=== PATIENT | female | born 1965 | race Caucasian/White ===

== ENCOUNTER 2021-10-22 18:28 | Inpatient (IN) | payer OTHER ==
[~2021-10-22] VITALS: Ht 167.1 cm; Wt 82.1 kg
[2021-10-22] MEDS ORDERED: HYDR50TA70 PO ×2 (18:37→21:36)
[2021-10-22] MEDS ORDERED: ATEN25TA PO (18:37)
[2021-10-22] MEDS ORDERED: VENL150C43 PO (18:37)
[2021-10-22] MEDS ORDERED: PANT40TA29 PO (18:37)
[2021-10-22] MEDS ORDERED: GABA-1171 PO (18:37)
[2021-10-22] MEDS ORDERED: PRAV40TA2 PO (18:37)
--- OUTSIDE RECORDS SUMMARY | 2021-10-22 19:48 | CCD | Continuity of Care Document ---
Author Author Torie MONTERROSO [facility] Unknown Address [address] [place] [address] Phone [phone] Care Team Providers Care Fermenting Cellar Dropper Name Role Phone Alyssa Madden PA-C AUTM [phone] Problems Active Problems Provider Date Gastroesophageal reflux disease Alyssa Madden PA-C Onset: 0 12/13/2020 Essential hypertension Alyssa Madden PA-C Onset: 12/13/2020 Anxiety state Alyssa Madden PA-C Onset: 12/13/2020 Social History Type Date Description Comments Sex Unknown ETOH Use Denies alcohol use Tobacco Use Start: Unknown Heavy tobacco smoker (more than 10 cigarettes/day) Recreational Drug Use Denies Drug Use Allergies and adverse reactions Active Allergies Criticality Reaction | Severity Comments Date Tetracycline Unable to assess criticality vomitting 12/13/2020 Medications Active Medications SIG Qnty Indications Ordering Provide r Date Hydroxyzine HCL 50mg Tablets 1-2 tabs by mouth as needed for anxiety up to every 6 hours 90tabs Roney Fierro MD 12/13/2020 Effexor XR 150mg Caps ER 24HR 1 by mouth every day 90caps Roney Fierro MD Pravastatin Sodium 40mg Tablets 1 tab by mouth every day 90tabs Roney Fierro MD Atenolol 25mg Tablets 1 tab by mouth twice a day 60tabs Roney Fierro MD Pantoprazole Sodium 40mg Tablets D R 1 tab by mouth every day 90tabs Roney Fierro MD 0 Nicorette Starter Kit 4mg Gum Unknown Immunizations Description No Information Available Vital Signs Date Vital Result Comment 08/29/2021 11:03am BP Systolic 122 mmHg She has not h ad her meds yet today reminded to t BP Diastolic 68 mmHg She has not had her meds yet today reminded to t Heart Rate 86 /min Body Temperature 97.7 F Respiratory Rate 18 /min O2 % BldC Oximetry 97 % Weight 190.00 lb wgt loss noted Weight 86.184 kg Height 67 inches 5'7" BMI (Body Mass Index) 29.8 kg/m2 BSA (Body Surface Area) 1.98 m2 05/17/2021 2:35pm BP Systolic 136 mmHg BP Diastolic 84 mmHg Heart Rate 78 /min Body Temperature 96.0 F Respiratory Rate 16 /min O2 % BldC Oximetry 96 % Weight 204.38 lb Weight 92.704 kg Height 67 inches 5'7" BMI (Body Mass Index) 32.0 kg/m2 BSA (Body Surface Area) 2.04 m2 Results Test Acquired Date Facility Test Result H/L Range Note CBC W/Automated Diff 08/29/2021 [facility] CBC W/Automated Diff (SEE NOTE) 1, 2 WBC 14.5 10^3/uL High 4.2 - 11.0 RBC 4.82 10^6/uL 4.20 - 5.40 Hemoglobin 14.1 g/dL 12.0 - 16.0 Hematocrit 43.5 % 37.0 - 47.0 MCV 90.2 fL 81.0 - 101 MCH 29.3 pg 27.0 - 34.0 MCHC 32.4 g/dL 31.0 - 36.0 RDW 14.6 % High 11.5 - 14.5 Platelets 496 10^3/uL High 150 - 450 MPV 9.5 fL 7.4 - 10.4 Neut 68.0 % 37.0 - 80.0 Lymph 23.7 % Low 25.0 - 40.0 [place] 5.9 % 3.0 - 8.0 Eos 1.2 % 0.0 - 7.0 Baso 0.6 % 0.0 - 2.5 %Ig 0.6 % High 0.0 - 0.0 %NRBC 0.0 % 0.0 - 0.0 #Neut 9.85 10^3/uL High 2.00 - 6.90 #Lymph 3.43 10^3/uL High 0.60 - 3.40 #[place] 0.86 10^3/uL 0.00 - 0.90 #Eos 0.18 10^3/uL 0.00 - 0.70 #Baso 0.09 10^3/uL 0.00 - 0.20 #Ig 0.08 10^3/uL 0.00 - 0.10 #NRBC 0.00 10^3/uL 0.00 - 0.00 Manual Diff NOT INDICATED RBC Morph NOT INDICATED Comprehensive Metabolic Panel 08/29/2021 [facility] Comprehensive Metabo (SEE NOTE) 3 Sodium 139 mEq/L 134 - 153 Potassium 4.5 mEq/L 3.6 - 5.0 Chloride 105 mEq/L 98 - 107 Co2 22 mEq/L 22 - 30 Glucose 110 mg/dL High 70 - 99 BUN 19 mg/dL 7 - 21 Creatinine 0.6 mg/dL Low 0.7 - 1.5 BUN/Creat 32 High 8 - 27 Total Protein 7.6 g/dL 6.3 - 8.2 Albumin 4.5 g/dL 3.9 - 5.0 Globulin 3.1 GM/DL 2.4 - 3.2 A/G Ratio 1.5 0.8 - 2.0 Calcium 9.7 mg/dL 8.4 - 10.2 Total Bili <0.7 mg/dL 0.2 - 1.3 Alkaline Phos 281 U/L High 38 - 126 Sgot/Ast 13 U/L 5 - 40 SGPT/Alt 7 U/L 7 - 56 Anion Gap 12.0 mmol/L 8.0 - 16.0 Age 56 yrs Non-Aa GFR >60 mL/min Afr Amer GFR >60 mL/min 4 Laboratory test finding 08/29/2021 [facility] Hgba1c 5.9 % 4.4 - 6.1 Cve Panel 08/29/2021 [facility] Cve Panel (SEE NOTE) 5 Cholesterol 180 mg/dL 131 - 200 Triglycerides 161 mg/dL High 35 - 160 HDL 36 mg/dL 29 - 86 LDL 108 mg/dL 65 - 175 Risk Factor 5.0 High 3.2 - 4.4 LDL/HDL 3.00 1.47 - 3.22 6 Laboratory test finding 08/29/2021 [facility] Vitamin D (25-Hydroxy) 9 NG/ML 7 Laboratory test finding 08/29/2021 [facility] TSH Highly Sensitive 2.53 uIU/mL 0.47 - 5.01 Sedimentation Rate 08/29/2021 [facility] Sed Rate 40 mm/hr High 0 - 30 Sed Rate Reenter 40 Laboratory test finding 08/29/2021 [facility] Sakshi Ifa Negative 8 Ra Quant <10 IU/mL 0 - 14 Cyclic Citrullinate Peptide Ig 6 units 0-19 9 CRP (High Sensitivity) 35.38 mg/L High 1.00 - 3.00 10 1 Is patient fasting? N 2 COMPLETE BLOOD COUNT 3 COMPREHENSIVE METABOLIC PANE L 4 Male GFR Interprentation 20-49 yrs >60 mL/min Normal 50-59 yrs >56 mL/min Normal 60-69 yrs >49 mL/min Normal 70-79yrs >42 mL/min Normal 80 and above >35 mL/min Normal Female GFR Interpretation 20-39 yrs >60 mL/min Normal 40-49 yrs >58 mL/min Normal 50-59 yrs >51 mL/min Normal 60-69 yrs >45 mL/min Normal 70-79 yrs >39 mL/min Normal 80 and above >32 mL/min Normal 5 LIPID PANEL 6 CVE RISK CHOL/HDL LDL/HDL MEN: 1/2 AVERAGE 3.43 1.00 AVERAGE 4.97 3.55 2X AVERAGE 9.55 6.25 3X AVERAGE 23.99 7.99 WOMEN: 1/2 AVERAGE 3.27 1.47 AVERAGE 4.44 3.22 2X AVERAGE 7.05 5.03 3X AVERAGE 11.04 6.14 7 VITAMIN-D(25HYDROXY) Deficiency: <=20 ng/ml Insufficiency: 21-29 ng/ml Preferred level: => 30 ng/ml 8 Negative <1:80 Borderline 1:80 Positive >1:80 ICAP nomenclature: AC-0 For more information about Hep-2 cell patterns use ANApatterns.org, the official website for the International Consensus on Antinuclear Antibody (SAKSHI) Patterns (ICAP). 9 Negative <20 Weak positive 20 - 39 Moderate positive 40 - 59 Strong positive >59 10 CDC/AHS HS-CRP CUT-OFF: RELATIVE RISK: <1.0 mg/L Low 1.0 - 3.0 mg/L A verage >3.0 mg/L High Optimally, the average of HS-CRP results repeated two weeks apart should be used for risk assessment. Procedures Date Code Description Status 08/29/2021 42926 Office/Outpatient Established Mo d MDM 30-39 Min Completed 05/17/2021 61062 Office/Outpatient Established Lo w MDM 20-29 Min Completed Medical Devices Description No Information Available Encounters Description No Information Available Assessments Date Code Description Provider 08/29/2021 M79.10 Myalgia, unspecified site ONEIL Rasmussen 08/29/2021 F17.210 Nicotine dependence, cigarettes, uncomplicated ONEIL Rasmussen 08/29/2021 K21.9 Gastro-esophageal reflux disease without esophagitis ONEIL Rasmussen 08/29/2021 R22.1 Localized swelling, mass and lum p, neck ONEIL Rasmussen 08/29/2021 R63.4 Abnormal weight loss ONEIL Grace 08/29/2021 R51.9 Headache, unspecified ONEIL Woodall 05/17/2021 I10 Essential (primary) hypertension Alyssa Madden PA-C 05/17/2021 F17.210 Nicotine dependence, cigarettes, uncomplicated Alyssa Madden PA-C 05/17/2021 F41.9 Anxiety disorder, unspecified El rashi Madden PA-C 05/17/2021 M79.18 Myalgia, other site Alyssa Madden PA-C 05/17/2021 Z00.01 Encounter for genera l adult medical examination with abnormal findings Alyssa Madden PA-C Plan of Treatment Future Appointment(s):* 09/19/2021 4:00 pm - [facility] Rasmussen at [facility] 12/13/2020 - Alyssa Madden PA-C* Z00.01 Encounter for general adult medical examination with abnormal findings* Comments:* Physical examination was done. Will order routine blood work and call her with results. Will have her sign records release to obtain medical records. Refilled her medications today. She is not interested in mammogram and pap smear. She had negative Cologuard last year. * F41.9 Anxiety disorder, unspecified* Comments:* Well controlled on Effexor. If she has any increased symptoms, she should let us know. * I10 Essential (primary) hypertension* Comments:* Today, BP is 124/84 at goal. Continue with current medication. Will continue to monitor. * K21.9 Gastro-esophageal reflux disease without esophagitis* Comments:* Continue with current medication. * E78.5 Hyperlipidemia, unspecified* Comments:* Continue with current medication. Will order lipid panel and adjust medication if needed. * G47.00 Insomnia, unspecified* Comments:* Will prescribe hydroxyzine for sleep as she had benefit in the past. * N39.3 Stress incontinence (female) (male)* Comments:* She was advised to see [facility] for further evaluation. Declined pelvic floor PT stating it is not bothersome currently. Declined urology referral. Declined trial of incontinence meds. * F17.210 Nicotine dependence, cigarettes, uncomplicated* Comments:* She is trying to quit smoking. Continue with Nicorette. She will let us know, if she needs any help. * M25.519 Pain in unspecified shoulder* Comments:* She c/o shoulder pain. it is not bothersome. Declined x-ray. She will let us know if she has increased pain. * All * New Medication:* Hydroxyzine HCL 50 mg - 1-2 tabs by mouth as needed for anxiety up to every 6 hours * Follow up:* 3-4 months Functional Status Description No Information Available Mental Status Description No Information Available Referrals Description No Information Available
--- OUTSIDE RECORDS SUMMARY | 2021-10-22 19:48 | CCD | Continuity of Care Document ---
Author Author Torie MONTERROSO PA Organization Unknown Address [address] [place] [address] Phone [phone] Care Team Providers Care On Site Coordinator Name Role Phone Polly Monterroso AUTM [phone] Problems Active Problems Provider Date Gastroesophageal reflux [...] Available Vital Signs Date Vital Result Comment 09/22/2021 4:04pm BP Systolic 130 mmHg BP Diastolic 82 mmHg Heart Rate 84 /min Body Temperature 96.0 F Respiratory Rate 16 /min O2 % BldC Oximetry 93 % Weight 188.50 lb Weight 85.504 kg Height 67 inches 5'7" BMI (Body Mass Index) 29.5 kg/m2 BSA (Body Surface Area) 1.97 m2 08/29/2021 11:03am BP Systolic 122 mmHg She [...] kg/m2 BSA (Body Surface Area) 1.98 m2 Results Test Acquired Date Facility Test Result H/L Range Note CBC W/Automated Diff 08/29/2021 [facility] CBC W/Automated Diff (SEE NOTE) 1, 2 [...] Lymph 23.7 % Low 25.0 - 40.0 Keith 5.9 % 3.0 - 8.0 Eos 1.2 % 0.0 - 7.0 Baso 0.6 % 0.0 - 2.5 %Ig 0.6 % High 0.0 - 0.0 %NRBC 0.0 % 0.0 - 0.0 #Neut 9.85 10^3/uL High 2.00 - 6.90 #Lymph 3.43 10^3/uL High 0.60 - 3.40 #Keith 0.86 10^3/uL 0.00 - 0.90 #Eos 0.18 10^3/uL 0.00 - 0.70 #Baso 0.09 10^3/uL 0.00 - 0.20 #Ig 0.08 10^3/uL 0.00 - 0.10 #NRBC 0.00 10^3/uL 0.00 - 0.00 Manual Diff NOT INDICATED RBC Morph NOT INDICATED Comprehensive Metabolic Panel 08/29/2021 [facility] Comprehensive Metabo (SEE NOTE) 3 Sodium [...] >60 mL/min 4 Laboratory test finding 08/29/2021 [facility] Hgba1c 5.9 % 4.4 - 6.1 Cve Panel 08/29/2021 [facility] Cve Panel (SEE NOTE) 5 Cholesterol 180 mg/dL 131 - 200 Triglycerides 161 mg/dL High 35 - 160 HDL 36 mg/dL 29 - 86 LDL 108 mg/dL 65 - 175 Risk Factor 5.0 High 3.2 - 4.4 LDL/HDL 3.00 1.47 - 3.22 6 Laboratory test finding 08/29/2021 [facility] Vitamin D (25-Hydroxy) 9 NG/ML 7 Laboratory test finding 08/29/2021 [facility] TSH Highly Sensitive 2.53 uIU/mL 0.47 - 5.01 Sedimentation Rate 08/29/2021 [facility] Sed Rate 40 mm/hr High 0 - 30 Sed Rate Reenter 40 Laboratory test finding 08/29/2021 [facility] Sakshi Ifa Negative 8 Ra Quant <10 [...] 40 - 59 Strong positive >59 10 CDC/S HS-CRP CUT-OFF: RELATIVE RISK: <1.0 mg/L Low 1.0 - 3.0 mg/L A verage >3.0 mg/L High Optimally, the average of HS-CRP results repeated two weeks apart should be used for risk assessment. Procedures Date Code Description Status 08/29/2021 24980 Office/Outpatient Established Mo d MDM 30-39 Min Completed 05/17/2021 05828 Office/Outpatient Established Lo w MDM 20-29 Min Completed Medical Devices Description No Information Available Encounters Description No Information Available Assessments Date Code Description Provider 09/22/2021 M25.511 Pain in right shoulder ONEIL Urena 09/22/2021 R63.4 Abnormal weight loss ONEIL Grace 09/22/2021 F17.210 Nicotine dependence, cigarettes, uncomplicated ONEIL Rasmussen 09/22/2021 I88.9 Nonspecific lymphadenitis, unspe cified ONEIL Rasmussen 08/29/2021 M79.10 Myalgia, unspecified site ONEIL Rasmussen [...] Madden PA-C Plan of Treatment Future Appointment(s):* 10/07/2021 3:00 pm - ONE[facility] Rasmussen at [facility] 09/22/2021 - ONEIL Rasmussen* M25.511 Pain in right shoulder* New Xrays:* Shoulder Comp-2 Or More VWS RT, Ordered: 09/22/21 * Recommendations:* We will obtain x-ray. Advised to use Tylenol or ibuprofen for pain. Use heating pads. Use light movement with shoulder daily. Advised to go to ER for severe pain. * R63.4 Abnormal weight loss* New Xrays:* Chest Xray 2 Views, Ordered: 09/22/21 * Recommendations:* Patient did not get her imaging completed during her last appointment. She should have imaging completed as this could likely due to cancer. Encourage imaging to be completed in 2 weeks. If imaging was not completed, we will fill out AMA form and likely no longer my patient. * F17.210 Nicotine dependence, cigarettes, uncomplicated* New Xrays:* Chest Xray 2 Views, Ordered: 09/22/21 * I88.9 Nonspecific lymphadenitis, unspecified Functional Status Description No Information Available Mental Status Description No Information Available Referrals Description No Information Available
--- OUTSIDE RECORDS SUMMARY | 2021-10-22 19:48 | CCD | Continuity of Care Document ---
Author Author Torie MONTERROSO PA Organization Unknown Address [address] [place] [address] Phone [phone] Care Team Providers Care Weld Fitter Name Role Phone Polly Monterroso AUTM [phone] Problems Active Problems Provider Date Gastroesophageal reflux [...] H/L Range Note CBC W/Automated Diff 08/29/2021 [facility] CBC W/Automated Diff (SEE NOTE) 1, 2 [...] Lymph 23.7 % Low 25.0 - 40.0 Rabun 5.9 % 3.0 - 8.0 Eos 1.2 % 0.0 - 7.0 Baso 0.6 % 0.0 - 2.5 %Ig 0.6 % High 0.0 - 0.0 %NRBC 0.0 % 0.0 - 0.0 #Neut 9.85 10^3/uL High 2.00 - 6.90 #Lymph 3.43 10^3/uL High 0.60 - 3.40 #[place]abun 0.86 10^3/uL 0.00 - 0.90 #Eos 0.18 10^3/uL 0.00 - 0.70 #Baso 0.09 10^3/uL 0.00 - 0.20 #Ig 0.08 10^3/uL 0.00 - 0.10 #NRBC 0.00 10^3/uL 0.00 - 0.00 Manual Diff NOT INDICATED RBC Morph NOT INDICATED Comprehensive Metabolic Panel 08/29/2021 [facility] Comprehensive Metabo (SEE NOTE) 3 Sodium 139 [...] >60 mL/min 4 Laboratory test finding 08/29/2021 [facility] Hgba1c 5.9 % 4.4 - 6.1 Cve Panel 08/29/2021 [facility] Cve Panel (SEE NOTE) 5 Cholesterol 180 mg/dL 131 - 200 Triglycerides 161 mg/dL High 35 - 160 HDL 36 mg/dL 29 - 86 LDL 108 mg/dL 65 - 175 Risk Factor 5.0 High 3.2 - 4.4 LDL/HDL 3.00 1.47 - 3.22 6 Laboratory test finding 08/29/2021 [facility] Vitamin D (25-Hydroxy) 9 NG/ML 7 Laboratory test finding 08/29/2021 [facility] TSH Highly Sensitive 2.53 uIU/mL 0.47 - 5.01 Sedimentation Rate 08/29/2021 [facility] Sed Rate 40 mm/hr High 0 - 30 Sed Rate Reenter 40 Laboratory test finding 08/29/2021 [facility] Sakshi Ifa Negative 8 Ra Quant <10 [...] assessment. Procedures Date Code Description Status 08/29/2021 27623 Office/Outpatient Established Mo d MDM 30-39 Min Completed 05/17/2021 28315 Office/Outpatient Established Lo w MDM 20-29 Min Completed Medical Devices Description No Information Available Encounters Description No Information Available Assessments Date Code Description Provider 09/22/2021 M25.511 Pain in right shoulder ONEIL Urena 09/22/2021 R63.4 Abnormal weight loss ONEIL Grace 09/22/2021 I88.9 Nonspecific lymphadenitis, unspe cified ONEIL [...] 10/07/2021 3:00 pm - ONEIL Rasmussen at [facility] 09/22/2021 - ONEIL Rasmussen* M25.511 Pain in right shoulder* New Xrays:* Shoulder Comp-2 Or More VWS RT, Ordered: 09/22/21 * Recommendations:* We will obtain x-ray. Advised to use Tylenol or ibuprofen for pain. Use heating pads. Do light movement with shoulder daily. Advised to go to ER for severe pain. Will consider referral to orthopedics at next appointment. * R63.4 Abnormal weight loss* New Xrays:* Chest Xray 2 Views, Ordered: 09/22/21 * Recommendations:* Patient did not get her imaging completed that was ordered at her last appointment. Throughout exam she seems very lackadaisical and does not seem concern about swollen mass on neck or weight loss. The lymph node has appeared to have gotten bigger since last visit. Discussed that this is potentially cancerous and we need to have this imaging completed as soon as possible. I will have her return in 2 weeks. If imaging is not completed at this time, she will need to fill out AMA paperwork and I am may not be able to continue to see her if she is not willing to comply with diagnosis and treatment of her current conditions. * I88.9 Nonspecific lymphadenitis, unspecified* Recommendations:* see above. Functional Status Description No Information Available Mental Status Description No Information Available Referrals Description No Information Available
--- OUTSIDE RECORDS SUMMARY | 2021-10-22 19:48 | CCD | Continuity of Care Document ---
Author Toire [place] Organization Unknown Address [address] [place] [address] Phone [phone] Care Team Providers Care Mica Miner Blasting Name Role Phone Alyssa Madden PA-C AUTM [phone] Problems Active Problems Provider Date Gastroesophageal reflux disease Alyssa Madden PA-C Onset: 0 12/13/2020 Essential hypertension Alyssa Madden PA-C Onset: 12/13/2020 Anxiety state Alyssa Madden PA-C Onset: 12/13/2020 Social History Type Date Description Comments Sex Unknown ETOH Use Denies alcohol use Tobacco Use Start: Unknown Heavy tobacco smoker (more than 10 cigarettes/day) Recreational Drug Use Denies Drug Use Allergies, Adverse Reactions, Alerts Active Allergies Criticality Reaction | Severity Comments [...] Date Facility Test Result H/L Range Note Laboratory test finding 08/29/2021 [facility] Hgba1c <pending> Laboratory test finding 08/29/2021 [facility] Vitamin D (25-Hydroxy) <pending> Laboratory test finding 08/29/2021 [facility] TSH Highly Sensitive <pending> Sedimentation Rate <pending> C-Reactive Protein <pending> Sakshi Ifa <pending> Ra Quantitative <pending> Cyclic Citrullinate Peptide Ig <pending> Procedures Date Code Description Status 05/17/2021 06853 Office/Outpatient Established Lo w MDM 20-29 Min [...] Alyssa Madden PA-C 05/17/2021 Z00.01 Encounter for [facility] adult medical examination with abnormal findings Alyssa Madden PA-C Plan of Treatment Future Appointment(s):* 09/19/2021 4:00 pm - ONE[facility] Rasmussen at [facility] 08/29/2021 - ONEIL Rasmussen* M79.10 Myalgia, unspecified site* Recommendations:* This is still occurring and is worsening. Will order labs for further evaluation. She can continue to take motrin as needed for pain. * F17.210 Nicotine dependence, cigarettes, uncomplicated* New Xrays:* Low-dose CT scan (Chest), Ordered: 08/29/21 * Recommendations:* Due to patients current smoking history I had an extensive discussion lasting more than 5 minutes about the need to quit smoking. I counseled the patient of the various negative side effects of smoking including, but not limited to, the risk of developing COPD, lung cancer, and other cardiac diseases. I strongly recommended that patient stops smoking and the patient was given information about various options of smoking cessation tools such as nicotine replacement therapy and other pharmacotherapies. She is going to use nicotine gum in order to quit. She is going to pick a quit date. I will have her return in 1 month for follow up. * K21.9 Gastro-esophageal reflux disease without esophagitis* Recommendations:* This is well controlled. Please continue current regimen. * R22.1 Localized swelling, mass and lump, neck* New Xrays:* US Soft Tissue Head/Neck, Ordered: 08/29/21 * Recommendations:* Will order head and neck ultrasound for further evaluation. * R63.4 Abnormal weight loss* Recommendations:* This is possibly secondary to lifestyle changes. She is a current smoker, I will order CT chest for further evaluation. We will continue to monitor. * R51.9 Headache, unspecified* Recommendations:* Headache of unknown etiology. Patient was non-specific in headache pattern. I will have her continue to track headaches and bring a headache diary in 3 weeks. She has been instructed to see an eye doctor as she has not in over 4 years. Migraine vs cluster vs other Functional Status Description No Information Available Mental Status Description No Information Available Referrals Description No Information Available
--- OUTSIDE RECORDS SUMMARY | 2021-10-22 19:48 | CCD | Continuity of Care Document ---
Author Author Torie MONTERROSO PA Organization Unknown Address [address] [place] [address] Phone [phone] Care Team Providers Care Partner Alliance Manager Name Role Phone Polly Monterroso AUTM [phone] [facility] AUTM Problems Active Problems Provider Date Gastroesophageal reflux [...] Available Vital Signs Date Vital Result Comment 10/07/2021 3:02pm BP Systolic 126 mmHg BP Diastolic 78 mmHg Heart Rate 85 /min Body Temperature 96.0 F Respiratory Rate 16 /min O2 % BldC Oximetry 98 % Weight 185.00 lb Weight 83.916 kg 09/22/2021 4:04pm BP Systolic 130 mmHg BP Diastolic 82 mmHg Heart Rate 84 /min Body Temperature 96.0 F Respiratory Rate 16 /min O2 % BldC Oximetry 93 % Weight 188.50 lb Weight 85.504 kg Height 67 inches 5'7" BMI (Body Mass Index) 29.5 kg/m2 BSA (Body Surface Area) 1.97 m2 Results Test Acquired Date Facility Test Result H/L Range Note CBC W/Automated Diff 08/29/2021 [facility] CBC W/Automated Diff (SEE NOTE) 1, 2 [...] Lymph 23.7 % Low 25.0 - 40.0 [place] 5.9 % 3.0 - 8.0 Eos 1.2 % 0.0 - 7.0 Baso 0.6 % 0.0 - 2.5 %Ig 0.6 % High 0.0 - 0.0 %NRBC 0.0 % 0.0 - 0.0 #Neut 9.85 10^3/uL High 2.00 - 6.90 #Lymph 3.43 10^3/uL High 0.60 - 3.40 #[place] 0.86 10^3/uL 0.00 - 0.90 #Eos 0.18 10^3/uL 0.00 - 0.70 #Baso 0.09 10^3/uL 0.00 - 0.20 #Ig 0.08 10^3/uL 0.00 - 0.10 #NRBC 0.00 10^3/uL 0.00 - 0.00 Manual Diff NOT INDICATED RBC Morph NOT INDICATED Comprehensive Metabolic Panel 08/29/2021 [facility] Comprehensive Metabo (SEE NOTE) 3 Sodium 139 [...] >60 mL/min 4 Laboratory test finding 08/29/2021 [facility] Hgba1c 5.9 % 4.4 - 6.1 Cve Panel 08/29/2021 [facility] Cve Panel (SEE NOTE) 5 Cholesterol 180 mg/dL 131 - 200 Triglycerides 161 mg/dL High 35 - 160 HDL 36 mg/dL 29 - 86 LDL 108 mg/dL 65 - 175 Risk Factor 5.0 High 3.2 - 4.4 LDL/HDL 3.00 1.47 - 3.22 6 Laboratory test finding 08/29/2021 [facility] Vitamin D (25-Hydroxy) 9 NG/ML 7 Laboratory test finding 08/29/2021 [facility] TSH Highly Sensitive 2.53 uIU/mL 0.47 - 5.01 Sedimentation Rate 08/29/2021 [facility] Sed Rate 40 mm/hr High 0 - 30 Sed Rate Reenter 40 Laboratory test finding 08/29/2021 [facility] Sakshi Ifa Negative 8 Ra Quant <10 [...] risk assessment. Procedures Date Code Description Status 09/22/2021 74449 Office/Outpatient Established Mo d MDM 30-39 Min Completed 08/29/2021 60008 Office/Outpatient Established Mo d MDM 30-39 Min Completed 05/17/2021 26900 Office/Outpatient Established Lo w MDM 20-29 Min Completed Medical Devices Description No Information Available Encounters Description No Information Available Assessments Date Code Description Provider 09/22/2021 R63.4 Abnormal weight loss ONEIL Grace 09/22/2021 I88.9 Nonspecific lymphadenitis, unspe cified [facility] Rasmussen 09/22/2021 M25.511 Pain in right shoulder ONEIL Urena 08/29/2021 M79.10 Myalgia, unspecified site ONEIL Rasmussen [...] findings Alyssa Madden PA-C Plan of Treatment No Information Available Functional Status Description No Information Available Mental Status Description No Information Available Referrals Refer to Reason for Referral Status Appt Date [facility] 56 year old female with abnormal weight loss and abnormal lymph node. CT scan of abdomen showed multiple liver lesions and bone lesions. I am awaiting PET scan. Please evaluate and manage. Thank you. Sent [address] [place] [address] [phone]
--- OUTSIDE RECORDS SUMMARY | 2021-10-22 19:48 | CCD ---
Continuity of Care Document (CCD) Created on: 09/22/2021 Torie Muñoz External Reference #: [id number] : [id number] Sex: Female Author Author Torie MONTERROSO PA Organization Unknown Address [address] [place] [address] Phone [phone] Care Team Providers Care Software Engineer Developer Name Role Phone Polly Monterroso AUTM [phone] Problems Active Problems Provider Date Gastroesophageal reflux [...] H/L Range Note CBC W/Automated Diff 08/29/2021 [facility] CBC W/Automated Diff (SEE NOTE) 1, [...] Lymph 23.7 % Low 25.0 - 40.0 [place] 5.9 % 3.0 - 8.0 Eos 1.2 % 0.0 - 7.0 Baso 0.6 % 0.0 - 2.5 %Ig 0.6 % High 0.0 - 0.0 %NRBC 0.0 % 0.0 - 0.0 #Neut 9.85 10^3/uL High 2.00 - 6.90 #Lymph 3.43 10^3/uL High 0.60 - 3.40 #[place] 0.86 10^3/uL 0.00 - 0.90 #Eos 0.18 10^3/uL 0.00 - 0.70 #Baso 0.09 10^3/uL 0.00 - 0.20 #Ig 0.08 10^3/uL 0.00 - 0.10 #NRBC 0.00 10^3/uL 0.00 - 0.00 Manual Diff NOT INDICATED RBC Morph NOT INDICATED Comprehensive Metabolic Panel 08/29/2021 [facility] Comprehensive Metabo (SEE NOTE) 3 Sodium 139 [...] >60 mL/min 4 Laboratory test finding 08/29/2021 [facility] Hgba1c 5.9 % 4.4 - 6.1 Cve Panel 08/29/2021 [facility] Cve Panel (SEE NOTE) 5 Cholesterol 180 mg/dL 131 - 200 Triglycerides 161 mg/dL High 35 - 160 HDL 36 mg/dL 29 - 86 LDL 108 mg/dL 65 - 175 Risk Factor 5.0 High 3.2 - 4.4 LDL/HDL 3.00 1.47 - 3.22 6 Laboratory test finding 08/29/2021 [facility] Vitamin D (25-Hydroxy) 9 NG/ML 7 Laboratory test finding 08/29/2021 [facility] TSH Highly Sensitive 2.53 uIU/mL 0.47 - 5.01 Sedimentation Rate 08/29/2021 [facility] Sed Rate 40 mm/hr High 0 - 30 Sed Rate Reenter 40 Laboratory test finding 08/29/2021 [facility] Sakshi Ifa Negative 8 Ra Quant [...] assessment. Procedures Date Code Description Status 08/29/2021 51748 Office/Outpatient Established Mo d MDM 30-39 Min Completed 05/17/2021 55800 Office/Outpatient Established Lo w MDM 20-29 Min [...] PA-C 05/17/2021 F41.9 Anxiety disorder, unspecified El rahsi Madden PA-C 05/17/2021 M79.18 Myalgia, other site Alyssa Madden PA-C 05/17/2021 Z00.01 Encounter for genera l adult medical examination with abnormal findings Alyssa Madden PA-C Plan of Treatment Future Appointment(s):* 10/07/2021 3:00 pm - [facility] Rasmussen at [facility] 09/22/2021 - [facility] Rasmussen* M25.511 Pain in [...]
--- OUTSIDE RECORDS SUMMARY | 2021-10-22 19:48 | CCD | Continuity of Care Document ---
Author Torie Pike [place] Organization Unknown Address [address] [place] [address] Phone [phone] Care Team Providers Care Insole And Outsole Splitter Name Role Phone Alyssa Madden PA-C AUTM [phone] Problems Active Problems Provider Date Gastroesophageal reflux [...] H/L Range Note Laboratory test finding 08/29/2021 [facility] Hgba1c <pending> Laboratory test finding 08/29/2021 [facility] Vitamin D (25-Hydroxy) <pending> Laboratory test finding 08/29/2021 [facility] TSH Highly Sensitive <pending> Sedimentation Rate <pending> C-Reactive Protein <pending> Sakshi Ifa <pending> Ra Quantitative <pending> Cyclic Citrullinate Peptide Ig <pending> Procedures Date Code Description Status 05/17/2021 76201 Office/Outpatient Established Lo w MDM 20-29 Min [...] Alyssa Madden PA-C 05/17/2021 Z00.01 Encounter for [facility] adult medical examination with abnormal findings Alyssa Madden PA-C Plan of Treatment Future Appointment(s):* 09/19/2021 4:00 pm - [facility] Rasmussen at [facility] 08/29/2021 - [facility] Rasmussen* M79.10 Myalgia, unspecified [...]
--- OUTSIDE RECORDS SUMMARY | 2021-10-22 19:48 | CCD | Continuity of Care Document ---
Author Torie Pike [place] Organization Unknown Address [address] [place] [address] Phone [phone] Care Team Providers Care Manager Plumbing Name Role Phone Alyssa Madden PA-C AUTM [phone] Problems Active Problems Provider Date Gastroesophageal reflux [...] 1 tab by mouth every day 90tabs Roeny Fierro MD 0 Nicorette Starter Kit 4mg [...] H/L Range Note Laboratory test finding 08/29/2021 [facility] Hgba1c <pending> Laboratory test finding 08/29/2021 [facility] Vitamin D (25-Hydroxy) <pending> Laboratory test finding 08/29/2021 [facility] TSH Highly Sensitive <pending> Sedimentation Rate <pending> C-Reactive Protein <pending> Sakshi Ifa <pending> Ra Quantitative <pending> Cyclic Citrullinate Peptide Ig <pending> Procedures Date Code Description Status 05/17/2021 50687 Office/Outpatient Established Lo w MDM 20-29 Min [...] 09/19/2021 4:00 pm - [facility] Rasmussen at [facility] 08/29/2021 - [facility] Rasmussen* M79.10 Myalgia, unspecified [...]
--- OUTSIDE RECORDS SUMMARY | 2021-10-22 19:48 | CCD | Continuity of Care Document ---
Author Torie Pike [place] Organization Unknown Address [address] [place] [address] Phone [phone] Care Team Providers Care Experimental Rocketsled Mechanic Name Role Phone Alyssa Madden PA-C AUTM [phone] Problems Active Problems Provider Date Gastroesophageal reflux [...] H/L Range Note Laboratory test finding 08/29/2021 [facility] Hgba1c <pending> Laboratory test finding 08/29/2021 [facility] Vitamin D (25-Hydroxy) <pending> Laboratory test finding 08/29/2021 [facility] TSH Highly Sensitive <pending> Sedimentation Rate <pending> C-Reactive Protein <pending> Sakshi Ifa <pending> Ra Quantitative <pending> Cyclic Citrullinate Peptide Ig <pending> Procedures Date Code Description Status 05/17/2021 83642 Office/Outpatient Established Lo w MDM 20-29 Min [...] 05/17/2021 F17.210 Nicotine dependence, cigarettes, uncomplicated Alyssa Madedn PA-C 05/17/2021 F41.9 Anxiety disorder, unspecified El rashi Madden PA-C 05/17/2021 M79.18 Myalgia, other site Alyssa Madden PA-C 05/17/2021 Z00.01 Encounter for [facility] adult medical examination with abnormal findings Alyssa Madden PA-C Plan of Treatment Future Appointment(s):* 09/19/2021 4:00 pm - [facility] Rasmussen at [facility] 08/29/2021 - [facility] Rasmussen* M79.10 Myalgia, [...]
--- OUTSIDE RECORDS SUMMARY | 2021-10-22 19:48 | CCD | Continuity of Care Document ---
Author Author Torie MONTERROSO PA Organization Unknown Address [address] [place] [address] Phone [phone] Care Team Providers Care Hedis Manager Name Role Phone Polly Monterroso AUTM [phone] Problems Active Problems Provider Date Gastroesophageal reflux [...] H/L Range Note CBC W/Automated Diff 08/29/2021 [facility] CBC W/Automated Diff (SEE NOTE) 1, 2 [...] Lymph 23.7 % Low 25.0 - 40.0 [place] 5.9 % 3.0 - 8.0 Eos 1.2 % 0.0 - 7.0 Baso 0.6 % 0.0 - 2.5 %Ig 0.6 % High 0.0 - 0.0 %NRBC 0.0 % 0.0 - 0.0 #Neut 9.85 10^3/uL High 2.00 - 6.90 #Lymph 3.43 10^3/uL High 0.60 - 3.40 #[place] 0.86 10^3/uL 0.00 - 0.90 #Eos 0.18 10^3/uL 0.00 - 0.70 #Baso 0.09 10^3/uL 0.00 - 0.20 #Ig 0.08 10^3/uL 0.00 - 0.10 #NRBC 0.00 10^3/uL 0.00 - 0.00 Manual Diff NOT INDICATED RBC Morph NOT INDICATED Comprehensive Metabolic Panel 08/29/[address] [facility] Comprehensive Metabo (SEE NOTE) 3 Sodium [...] >60 mL/min 4 Laboratory test finding 08/29/2021 [facility] Hgba1c 5.9 % 4.4 - 6.1 Cve Panel 08/29/2021 [facility] Cve Panel (SEE NOTE) 5 Cholesterol 180 mg/dL 131 - 200 Triglycerides 161 mg/dL High 35 - 160 HDL 36 mg/dL 29 - 86 LDL 108 mg/dL 65 - 175 Risk Factor 5.0 High 3.2 - 4.4 LDL/HDL 3.00 1.47 - 3.22 6 Laboratory test finding 08/29/2021 [facility] Vitamin D (25-Hydroxy) 9 NG/ML 7 Laboratory test finding 08/29/2021 [facility] TSH Highly Sensitive 2.53 uIU/mL 0.47 - 5.01 Sedimentation Rate 08/29/2021 [facility] Sed Rate 40 mm/hr High 0 - 30 Sed Rate Reenter 40 Laboratory test finding 08/29/2021 [facility] Sakshi Ifa Negative 8 Ra Quant [...] assessment. Procedures Date Code Description Status 08/29/2021 49624 Office/Outpatient Established Mo d MDM 30-39 Min Completed 05/17/2021 60236 Office/Outpatient Established Lo w MDM 20-29 Min [...] 10/07/2021 3:00 pm - [facility] Rasmussen at [facility] 09/22/2021 - [facility] Rasmussen* M25.511 Pain in [...]
--- OUTSIDE RECORDS SUMMARY | 2021-10-22 19:49 | CCD ---
Author Author [facility] Organization [facility] Address Unknown Phone Unavailable Care Team Providers Care Wireless Architect Name Role Phone ZhangPolly PA Unavailable Unavailable Zhang, Polly PA Unavailable Unavailable Zhang, Polly PA Unavailable Unavailable Zhang, Polly PA Unavailable Unavailable Zhang, Polly PA Unavailable Unavailable Zhang, Polly PA Unavailable Unavailable Zhang, Polly PA Unavailable Unavailable Zhang, Polly PA Unavailable Unavailable Zhang, Polly PA Unavailable Unavailable Zhang, Polly PA Unavailable Unavailable Madden, M Alyssa PA-C Unavailable Unavailable Madden, M Alyssa PA-C Unavailable Unavailable Madden, M Alyssa PA-C Unavailable Unavailable Madden, M Alyssa PA-C Unavailable Unavailable Madden, M Alyssa PA-C Unavailable Unavailable Madden, M Alyssa PA-C Unavailable Unavailable Madden, M Alyssa PA-C Unavailable Unavailable Madden, M Alyssa PA-C Unavailable Unavailable Madden, M Alyssa PA-C Unavailable Unavailable Madden, M Alyssa PA-C Unavailable Unavailable Madden, M Alyssa PA-C Unavailable Unavailable Madden, M Alyssa PA-C Unavailable Unavailable Madden, M Alyssa PA-C Unavailable Unavailable Madden, M Alyssa PA-C Unavailable Unavailable Madden, M Alyssa PA-C Unavailable Unavailable Madden, M Alyssa PA-C Unavailable Unavailable Madden, M Alyssa PA-C Unavailable Unavailable Madden, M Alyssa PA-C Unavailable Unavailable Madden, M Alyssa PA-C Unavailable Unavailable Madden, M Alyssa PA-C Unavailable Unavailable Madden, M Alyssa PA-C Unavailable Unavailable Madden, M Alyssa PA-C Unavailable Unavailable Madden, M Alyssa PA-C Unavailable Unavailable Madden, M Alyssa PA-C Unavailable Unavailable Madden, M Alyssa PA-C Unavailable Unavailable Madden, M Alyssa PA-C Unavailable Unavailable Madden, M Alyssa PA-C Unavailable Unavailable Madden, M Alyssa PA-C Unavailable Unavailable Madden, M Alyssa PA-C Unavailable Unavailable Madden, M Alyssa PA-C Unavailable Unavailable Madden, M Alyssa PA-C Unavailable Unavailable Madden, M Alyssa PA-C Unavailable Unavailable Madden, M Alyssa PA-C Unavailable Unavailable Madden, M Alyssa PA-C Unavailable Unavailable Madden, M Alyssa PA-C Unavailable Unavailable Madden, M Alyssa PA-C Unavailable Unavailable Madden, M Alyssa PA-C Unavailable Unavailable Madden, M Alyssa PA-C Unavailable Unavailable DJOUINI, NATHEN PA-C Unavailable Unavailable DJOUINI, NATHEN PA-C Unavailable Unavailable DJOUINI, NATHEN PA-C Unavailable Unavailable DJOUINI, NATHEN PA-C Unavailable Unavailable DJOUINI, NATHEN PA-C Unavailable Unavailable DJOUINI, NATHEN PA-C Unavailable Unavailable Kunnumpurath, F Barbara MD Unavailable Unavailable Kunnumpurath, F Barbara MD Unavailable Unavailable Kunnumpurath, F Barbara MD Unavailable Unavailable Kunnumpurath, F Barbara MD Unavailable Unavailable Kunnumpurath, F Barbara MD Unavailable Unavailable Kunnumpurath, F Barbara MD Unavailable Unavailable Kunnumpurath, F Barbara MD Unavailable Unavailable Kunnumpurath, F Barbara MD Unavailable Unavailable Kunnumpurath, F Barbara MD Unavailable Unavailable Kunnumpurath, F Barbara MD Unavailable Unavailable Kunnumpurath, F Barbara MD Unavailable Unavailable Kunnumpurath, F Barbara MD Unavailable Unavailable Kunnumpurath, F Barbara MD Unavailable Unavailable Kunnumpurath, F Barbara MD Unavailable Unavailable Kunnumpurath, F Barbara MD Unavailable Unavailable Kunnumpurath, F Barbara MD Unavailable Unavailable Kunnumpurath, F Barbara MD Unavailable Unavailable Kunnumpurath, F Barbara MD Unavailable Unavailable Kunnumpurath, F Barbara MD Unavailable Unavailable Kunnumpurath, F Barbara MD Unavailable Unavailable Kunnumpurath, F Barbara MD Unavailable Unavailable Kunnumpurath, F Barbara MD Unavailable Unavailable Kunnumpurath, F Barbara MD Unavailable Unavailable Kunnumpurath, F Barbara MD Unavailable Unavailable Kunnumpurath, F Barbara MD Unavailable Unavailable Kunnumpurath, F Barbara MD Unavailable Unavailable Kunnumpurath, F Barbara MD Unavailable Unavailable Kunnumpurath, F Barbara MD Unavailable Unavailable Kunnumpurath, F Barbara MD Unavailable Unavailable Kunnumpurath, F Barbara MD Unavailable Unavailable Kunnumpurath, F Barbara MD Unavailable Unavailable Kunnumpurath, F Barbara MD Unavailable Unavailable Kunnumpurath, F Barbara MD Unavailable Unavailable Kunnumpurath, F Barbara MD Unavailable Unavailable Kunnumpurath, F Barbara MD Unavailable Unavailable Kunnumpurath, F Barbara MD Unavailable Unavailable Kunnumpurath, F Barbara MD Unavailable Unavailable Kunnumpurath, F Barbara MD Unavailable Unavailable Kunnumpurath, F Barbara MD Unavailable Unavailable Kunnumpurath, F Barbara MD Unavailable Unavailable Kunnumpurath, F Barbara MD Unavailable Unavailable Kunnumpurath, F Barbara MD Unavailable Unavailable Kunnumpurath, F Barbara MD Unavailable Unavailable Kunnumpurath, F Barbara MD Unavailable Unavailable Kunnumpurath, F Barbara MD Unavailable Unavailable Kunnumpurath, F Barbara MD Unavailable Unavailable PARTH VICTORIA MD Unavailable Unavailable PARTH VICTORIA MD Unavailable Unavailable PARTH VICTORIA MD Unavailable Unavailable PARTH VICTORIA MD Unavailable Unavailable PARTH VICTORIA MD Unavailable Unavailable PARTH VICTORIA MD Unavailable Unavailable PARTH VICTORIA MD Unavailable Unavailable PARTH VICTORIA MD Unavailable Unavailable PARTH VICTORIA MD Unavailable Unavailable PARTH VICTORIA MD Unavailable Unavailable PARTH VICTORIA MD Unavailable Unavailable PARTH VICTORIA MD Unavailable Unavailable PARTH VICTORIA MD Unavailable Unavailable PARTH VICTORIA MD Unavailable Unavailable PARTH VICTORIA MD Unavailable Unavailable PARTH VICTORIA MD Unavailable Unavailable PARTH VICTORIA MD Unavailable Unavailable PARTH VICTORIA MD Unavailable Unavailable PARTH VICTORIA MD Unavailable Unavailable PARTH VICTORIA MD Unavailable Unavailable PARTH VICTORIA MD Unavailable Unavailable PARTH VICTORIA MD Unavailable Unavailable PARTH VICTORIA MD Unavailable Unavailable PARTH VICTORIA MD Unavailable Unavailable PARTH VICTORIA MD Unavailable Unavailable PARTH VICTORIA MD Unavailable Unavailable PARTH VICTORIA MD Unavailable Unavailable PARTH VICTORIA MD Unavailable Unavailable PARTH VICTORIA MD Unavailable Unavailable PARTH VICTORIA MD Unavailable Unavailable PARTH VICTORIA MD Unavailable Unavailable PARTH VICTORIA MD Unavailable Unavailable PARTH VICTORIA MD Unavailable Unavailable PARTH VICTORIA MD Unavailable Unavailable PARTH VICTORIA MD Unavailable Unavailable PARTH VICTORIA MD Unavailable Unavailable PARTH VICTORIA MD Unavailable Unavailable PARTH VICTORIA MD Unavailable Unavailable PARTH VICTORIA MD Unavailable Unavailable PARTH VICTORIA MD Unavailable Unavailable PARTH VICTORIA MD Unavailable Unavailable PARTH VICTORIA MD Unavailable Unavailable PARTH VICTORIA MD Unavailable Unavailable PARTH VICTORIA MD Unavailable Unavailable PARTH VICTORIA MD Unavailable Unavailable PARTH VICTORIA MD Unavailable Unavailable PARTH VICTORIA MD Unavailable Unavailable PARTH VICTORIA MD Unavailable Unavailable PARTH VICTORIA MD Unavailable Unavailable PARTH VICTORIA MD Unavailable Unavailable PARTH VICTORIA MD Unavailable Unavailable HETAL, L BART MD Unavailable Unavailable HETAL, L BART MD Unavailable Unavailable HETAL, L BART MD Unavailable Unavailable HETAL, L BART MD Unavailable Unavailable HETAL, L BART MD Unavailable Unavailable HETAL, L BART MD Unavailable Unavailable HETAL, L BART MD Unavailable Unavailable HETAL, L BART MD Unavailable Unavailable HETAL, L BART MD Unavailable Unavailable HETAL, L BART MD Unavailable Unavailable HETAL, L BART MD Unavailable Unavailable HETAL, L BART MD Unavailable Unavailable HETAL, L BART MD Unavailable Unavailable HETAL, L BART MD Unavailable Unavailable HETAL, L BART MD Unavailable Unavailable HETAL, L BART MD Unavailable Unavailable HETAL, L BART MD Unavailable Unavailable HETAL, L BART MD Unavailable Unavailable HETAL, L BART MD Unavailable Unavailable HETAL, L BART MD Unavailable Unavailable DJOUINI, NATHEN PA-C Unavailable Unavailable DJOUINI, NATHEN PA-C Unavailable Unavailable DJOUINI, NATHEN PA-C Unavailable Unavailable DJOUINI, NATHEN PA-C Unavailable Unavailable DJOUINI, NATHEN PA-C Unavailable Unavailable DJOUINI, NATHEN PA-C Unavailable Unavailable DJOUINI, NATHEN PA-C Unavailable Unavailable Re-disclosure Warning The records that you are about to access may contain information from federally-assisted alcohol or drug abuse programs. If such information is present, then the following federally mandated warning applies: This information has been disclosed to you from records protected by federal confidentiality rules (42 CFR part 2). The federal rules prohibit you from making any further disclosure of this information unless further disclosure is expressly permitted by the written consent of the person to whom it pertains or as otherwise permitted by 42 CFR part 2. A general authorization for the release of medical or other information is NOT sufficient for this purpose. The Federal rules restrict any use of the information to criminally investigate or prosecute any alcohol or drug abuse patient.The records that you are about to access may contain highly sensitive health information, the redisclosure of which is protected by Article 27-F of the [facility] Public Health law. If you continue you may have access to information: Regarding HIV / AIDS; Provided by facilities licensed or operated by the [facility] Office of Mental Health; or Provided by the [facility] Office for People With Developmental Disabilities. If such information is present, then the following [facility] mandated warning applies: This information has been disclosed to you from confidential records which are protected by state law. State law prohibits you from making any further disclosure of this information without the specific written consent of the person to whom it pertains, or as otherwise permitted by law. Any unauthorized further disclosure in violation of state law may result in a fine or correction sentence or both. A general authorization for the release of medical or other information is NOT sufficient authorization for further disc losure. Allergies and Adverse Reactions Type Description Substance Reaction Status Data Source(s ) No Known Drug Allergies No Known Drug Allergies [facility] Food allergy [facility] DRUGS [facility] Encounters Encounter Providers Location Date Indications Data Source(s ) Outpatient Attender: NATHEN ABURTO CAttender: Polly Zhang PAConsultant: Barbara Maria MD 10/22/2021 01:38:00 PM EST - 10/22/2021 01:38:00 PM EST [facility] Outpatient Attender: NATHEN MAYES PA-C Family Practice 12:30:00 PM EST [facility] ([facility] Outpatient Attender: Polly Zhang PAConsultant: Barbara combs MD 10/07/2021 02:57:00 PM EST - 10/07/2021 02:57:00 PM EST [facility] Outpatient Attender: Polly Zhang PAConsultant: Barbara combs MD 10/05/2021 12:35:00 PM EST - 10/05/2021 01:36:00 PM [facility] Patient discharged. Outpatient Attender: Polly Zhang PAConsultant: Brabara combs MD 09/22/2021 03:57:00 PM EDT - 09/22/2021 03:57:00 PM EDT [facility] Outpatient Attender: Polly Zhang PAConsultant: Barbara combs MD 09/22/2021 01:40:33 PM EDT - 09/26/2021 10:57:00 AM [facility] Patient discharged. Outpatient Attender: Polly Zhang PAConsultant: Barbara combs MD 09/20/2021 08:14:55 AM EDT - 09/21/2021 01:39:00 PM EDT [facility] Patient discharged. Outpatient Attender: Alyssa PORTILLO ttender: Polly Zhang PAReferrer: Polly Zhang PAConsultant: Barbara Maria MD 09/2021 10:54:00 AM EDT - 08/29/2021 10:54:00 AM EDT [facility] Emergency Attender: BART FONG MDConsultant: Barbara callejas MD 08/06/2021 06:12:00 PM EDT - 08/06/2021 07:07:00 PM EDT [facility] Patient discharged. Outpatient Attender: Alyssa ABURTOCConsultant: PARTH VICTORIA MD 05/17/2021 02:26:00 PM EDT - 05/17/2021 02:26:00 PM EDT [facility] Outpatient Attender: Alyssa KNIGHTonsultant: PARTH VICTORIA MD 02/10/2021 02:44:00 PM EDT - 02/10/2021 02:44:00 PM EDT [facility] Outpatient Attender: Alyssa ABURTOCConsultant: PARTH VICTORIA MD 12/13/2020 02:07:00 PM EST - 12/13/2020 02:07:00 PM EST [facility] Immunizations Vaccine Date Status Description Data Source(s) COVID-19 VACCINE Pfizer 02/16/2021 12:00:00 AM EDT completed [facility] Vaccine Series Complete: YESThis Data wa s Submitted to [facility]. COVID-19 VACCINE Pfizer 01/26/2021 12:00:00 AM EST completed [facility] Vaccine Series Complete: NOThis Data was Submitted to [facility]. Medications Medication Brand Name Start Date Product Form Dose Route Admi nistrative Instructions Pharmacy Instructions Status Indications Reaction Description Data Source(s) 60 ACTUAT Albuterol 0.09 MG/ACTUAT Metered Dose Inhaler Albu terol Sulfate HFA 10/22/2021 12:00:00 AM EST RESPIRATORY active [facility] ([facility]) Amoxicillin 500 MG / Clavulanate 125 MG Oral Tablet Am oxicillin/Clavulanate Potassium 10/22/2021 12:00:00 AM EST ORAL active [facility] ([facility]) pantoprazole 40 MG Delayed Release Oral Tablet PANTOPRAZOLE SODIUM 10/12/2021 12:00:00 AM EST tablet,delayed release (DR/EC) 30 T ROJAS ONE TABLET BY MOUTH EVERY DAY TAKE ONE TABLET BY MOUTH EVERY DAY SOLD: 10/12/2021 [facility] 150 mg 10/11/2021 12:00:00 AM EST capsule,extended releas e 24hr 30 TAKE ONE CAPSULE BY MOUTH EVERY DAY TAKE ONE CAPSULE BY MOUTH EVERY DAY SOLD: 10/12/2021 [facility] 50 mg 10/08/2021 12:00:00 AM EST tablet 90 TAKE ONE TO TWO TABLETS BY MOUTH EVERY 6 HOURS NEEDED FOR ANXIETY TAKE ONE TO TWO TABLETS BY MOUTH EVERY 6 HOURS NEEDED FOR ANXIETY SOLD: 10/12/2021 [facility] 100 mg 10/08/2021 12:00:00 AM EST capsule 90 TAKE ONE CAPSULE BY MOUTH THREE TIMES A DAY NEEDED MAXIMUM DAILY DOSE = 3 TAKE ONE CAPSULE BY MOUTH THREE TIMES A DAY NEEDED MAXIMUM DAILY DOSE = 3 SOLD: 10/12/2021 [facility] gabapentin 100 MG Oral Capsule Gabapentin 10/07/2021 12:00:00 AM EST ORAL active [facility] ([facility]) 25 mg 08/11/2021 12:00:00 AM EDT tablet 60 TAKE ONE TABLET BY MOUTH TWICE A DAY TAKE ONE TABLET BY MOUTH TWICE A DAY SOLD: 08/13/2021 [facility] 25 mg 08/11/2021 12:00:00 AM EDT tablet 60 TAKE ONE TABLET BY MOUTH TWICE A DAY TAKE ONE TABLET BY MOUTH TWICE A DAY SOLD: 09/12/2021 [facility] 25 mg 08/11/2021 12:00:00 AM EDT tablet 60 TAKE ONE TABLET BY MOUTH TWICE A DAY TAKE ONE TABLET BY MOUTH TWICE A DAY SOLD: 10/12/2021 [facility] 40 mg 07/11/2021 12:00:00 AM EDT tablet 30 TAKE ONE TABLET BY MOUTH EVERY DAY TAKE ONE TABLET BY MOUTH EVERY DAY SOLD: 09/12/2021 [facility] 40 mg 07/11/2021 12:00:00 AM EDT tablet 30 TAKE ONE TABLET BY MOUTH EVERY DAY TAKE ONE TABLET BY MOUTH EVERY DAY SOLD: 08/13/2021 [facility] 40 mg 07/11/2021 12:00:00 AM EDT tablet 30 TAKE ONE TABLET BY MOUTH EVERY DAY TAKE ONE TABLET BY MOUTH EVERY DAY SOLD: 10/12/2021 [facility] 40 mg 07/11/2021 12:00:00 AM EDT tablet 30 TAKE ONE TABLET BY MOUTH EVERY DAY TAKE ONE TABLET BY MOUTH EVERY DAY SOLD: 07/14/2021 [facility] 50 mg 05/19/2021 12:00:00 AM EDT tablet 90 TAKE 1-2 TABLETS BY MOUTH NEEDED FOR ANXIETY UP TO EVERY 6 HOURS TAKE 1-2 TABLETS BY MOUTH NEEDED FOR ANXIETY UP TO EVERY 6 HOURS SOLD: 06/13/2021 [facility] 50 mg 05/19/2021 12:00:00 AM EDT tablet 90 TAKE 1-2 TABLETS BY MOUTH NEEDED FOR ANXIETY UP TO EVERY 6 HOURS TAKE 1-2 TABLETS BY MOUTH NEEDED FOR ANXIETY UP TO EVERY 6 HOURS SOLD: 07/14/2021 [facility] 50 mg 05/19/2021 12:00:00 AM EDT tablet 90 TAKE 1-2 TABLETS BY MOUTH NEEDED FOR ANXIETY UP TO EVERY 6 HOURS TAKE 1-2 TABLETS BY MOUTH NEEDED FOR ANXIETY UP TO EVERY 6 HOURS SOLD: 05/20/2021 [facility] 25 mg 05/12/2021 12:00:00 AM EDT tablet 60 TAKE ONE TABLET BY MOUTH TWICE A DAY TAKE ONE TABLET BY MOUTH TWICE A DAY SOLD: 07/14/2021 [facility] 25 mg 05/12/2021 12:00:00 AM EDT tablet 60 TAKE ONE TABLET BY MOUTH TWICE A DAY TAKE ONE TABLET BY MOUTH TWICE A DAY SOLD: 05/14/2021 [facility] 25 mg 05/12/2021 12:00:00 AM EDT tablet 60 TAKE ONE TABLET BY MOUTH TWICE A DAY TAKE ONE TABLET BY MOUTH TWICE A DAY SOLD: 06/13/2021 [facility] pantoprazole 40 MG Delayed Release Oral Tablet PANTOPRAZOLE SODIUM 04/11/2021 12:00:00 AM EDT tablet,delayed release (DR/EC) 30 T ROJAS ONE TABLET BY MOUTH EVERY DAY TAKE ONE TABLET BY MOUTH EVERY DAY SOLD: 09/12/2021 [facility] pantoprazole 40 MG Delayed Release Oral Tablet PANTOPRAZOLE SODIUM 04/11/2021 12:00:00 AM EDT tablet,delayed release (DR/EC) 30 T ROJAS ONE TABLET BY MOUTH EVERY DAY TAKE ONE TABLET BY MOUTH EVERY DAY SOLD: 07/14/2021 [facility] pantoprazole 40 MG Delayed Release Oral Tablet PANTOPRAZOLE SODIUM 04/11/2021 12:00:00 AM EDT tablet,delayed release (DR/EC) 90 T ROJAS ONE TABLET BY MOUTH EVERY DAY TAKE ONE TABLET BY MOUTH EVERY DAY SOLD: 04/15/2021 [facility] pantoprazole 40 MG Delayed Release Oral Tablet PANTOPRAZOLE SODIUM 04/11/2021 12:00:00 AM EDT tablet,delayed release (DR/EC) 30 T ROJAS ONE TABLET BY MOUTH EVERY DAY TAKE ONE TABLET BY MOUTH EVERY DAY SOLD: 08/13/2021 [facility] 150 mg 02/08/2021 12:00:00 AM EDT capsule,extended releas e 24hr 30 TAKE ONE CAPSULE BY MOUTH EVERY DAY TAKE ONE CAPSULE BY MOUTH EVERY DAY SOLD: 07/14/2021 [facility] 150 mg 02/08/2021 12:00:00 AM EDT capsule,extended releas e 24hr 30 TAKE ONE CAPSULE BY MOUTH EVERY DAY TAKE ONE CAPSULE BY MOUTH EVERY DAY SOLD: 02/12/2021 [facility] Atenolol 25 MG Oral Tablet ATENOLOL 02/08/2021 12:00:00 AM EDT tablet 60 TAKE ONE TABLET BY MOUTH TWICE A DAY TAKE ONE TABLET BY MOUTH TWICE A DAY SOLD: 02/12/2021 [facility] 40 mg 02/08/2021 12:00:00 AM EDT tablet 30 TAKE ONE TABLET BY MOUTH EVERY DAY TAKE ONE TABLET BY MOUTH EVERY DAY SOLD: 02/12/2021 [facility] 40 mg 02/08/2021 12:00:00 AM EDT tablet 30 TAKE ONE TABLET BY MOUTH EVERY DAY TAKE ONE TABLET BY MOUTH EVERY DAY SOLD: 06/13/2021 [facility] 40 mg 02/08/2021 12:00:00 AM EDT tablet 30 TAKE ONE TABLET BY MOUTH EVERY DAY TAKE ONE TABLET BY MOUTH EVERY DAY SOLD: 04/15/2021 [facility] 150 mg 02/08/2021 12:00:00 AM EDT capsule,extended releas e 24hr 30 TAKE ONE CAPSULE BY MOUTH EVERY DAY TAKE ONE CAPSULE BY MOUTH EVERY DAY SOLD: 09/12/2021 [facility] 25 mg 02/08/2021 12:00:00 AM EDT tablet 60 TAKE ONE TABLET BY MOUTH TWICE A DAY TAKE ONE TABLET BY MOUTH TWICE A DAY SOLD: 04/15/2021 [facility] 150 mg 02/08/2021 12:00:00 AM EDT capsule,extended releas e 24hr 30 TAKE ONE CAPSULE BY MOUTH EVERY DAY TAKE ONE CAPSULE BY MOUTH EVERY DAY SOLD: 06/13/2021 [facility] 150 mg 02/08/2021 12:00:00 AM EDT capsule,extended releas e 24hr 30 TAKE ONE CAPSULE BY MOUTH EVERY DAY TAKE ONE CAPSULE BY MOUTH EVERY DAY SOLD: 04/15/2021 [facility] 150 mg 02/08/2021 12:00:00 AM EDT capsule,extended releas e 24hr 30 TAKE ONE CAPSULE BY MOUTH EVERY DAY TAKE ONE CAPSULE BY MOUTH EVERY DAY SOLD: 08/13/2021 [facility] 150 mg 02/08/2021 12:00:00 AM EDT capsule,extended releas e 24hr 30 TAKE ONE CAPSULE BY MOUTH EVERY DAY TAKE ONE CAPSULE BY MOUTH EVERY DAY SOLD: 05/14/2021 [facility] 40 mg 02/08/2021 12:00:00 AM EDT tablet 30 TAKE ONE TABLET BY MOUTH EVERY DAY TAKE ONE TABLET BY MOUTH EVERY DAY SOLD: 05/14/2021 [facility] pantoprazole 40 MG Delayed Release Oral Tablet PANTOPRAZOLE SODIUM 12/14/2020 12:00:00 AM EST tablet,delayed release (DR/EC) 30 T ROJAS ONE TABLET BY MOUTH EVERY DAY TAKE ONE TABLET BY MOUTH EVERY DAY SOLD: 01/14/2021 [facility] 40 mg 12/14/2020 12:00:00 AM EST tablet 30 TAKE ONE TABLET BY MOUTH EVERY DAY TAKE ONE TABLET BY MOUTH EVERY DAY SOLD: 01/14/2021 [facility] 50 mg 12/14/2020 12:00:00 AM EST tablet 90 TAKE 1-2 TABLETS BY MOUTH UP TO EVERY 6 HOURS NEEDED ANXIETY TAKE 1-2 TABLETS BY MOUTH UP TO EVERY 6 HOURS NEEDED ANXIETY SOLD: 02/12/2021 [facility] 50 mg 12/14/2020 12:00:00 AM EST tablet 90 TAKE 1-2 TABLETS BY MOUTH UP TO EVERY 6 HOURS NEEDED ANXIETY TAKE 1-2 TABLETS BY MOUTH UP TO EVERY 6 HOURS NEEDED ANXIETY SOLD: 12/15/2020 [facility] pantoprazole 40 MG Delayed Release Oral Tablet PANTOPRAZOLE SODIUM 12/14/2020 12:00:00 AM EST tablet,delayed release (DR/EC) 30 T ROJAS ONE TABLET BY MOUTH EVERY DAY TAKE ONE TABLET BY MOUTH EVERY DAY SOLD: 02/12/2021 [facility] pantoprazole 40 MG Delayed Release Oral Tablet PANTOPRAZOLE SODIUM 12/14/2020 12:00:00 AM EST tablet,delayed release (DR/EC) 30 T ROJAS ONE TABLET BY MOUTH EVERY DAY TAKE ONE TABLET BY MOUTH EVERY DAY SOLD: 12/15/2020 [facility] 40 mg 12/14/2020 12:00:00 AM EST tablet 30 TAKE ONE TABLET BY MOUTH EVERY DAY TAKE ONE TABLET BY MOUTH EVERY DAY SOLD: 12/15/2020 [facility] 50 mg 12/14/2020 12:00:00 AM EST tablet 90 TAKE 1-2 TABLETS BY MOUTH UP TO EVERY 6 HOURS NEEDED ANXIETY TAKE 1-2 TABLETS BY MOUTH UP TO EVERY 6 HOURS NEEDED ANXIETY SOLD: 01/14/2021 [facility] Hydroxyzine Hydrochloride 50 MG Oral Tablet Hydroxyzine HCL 12/13/2020 12:00:00 AM EST ORAL active [facility] ([facility]) 40 mg 08/14/2020 12:00:00 AM EDT tablet 30 TAKE ONE TABLET BY MOUTH EVERY DAY TAKE ONE TABLET BY MOUTH EVERY DAY SOLD: 09/17/2020 [facility] 40 mg 08/14/2020 12:00:00 AM EDT tablet 30 TAKE ONE TABLET BY MOUTH EVERY DAY TAKE ONE TABLET BY MOUTH EVERY DAY SOLD: 11/15/2020 [facility] 40 mg 08/14/2020 12:00:00 AM EDT tablet 30 TAKE ONE TABLET BY MOUTH EVERY DAY TAKE ONE TABLET BY MOUTH EVERY DAY SOLD: 10/16/2020 [facility] 150 mg 08/13/2020 12:00:00 AM EDT capsule,extended releas e 24hr 30 TAKE ONE CAPSULE BY MOUTH EVERY DAY TAKE ONE CAPSULE BY MOUTH EVERY DAY SOLD: 01/14/2021 [facility] pantoprazole 40 MG Delayed Release Oral Tablet PANTOPRAZOLE SODIUM 08/13/2020 12:00:00 AM EDT tablet,delayed release (DR/EC) 30 T ROJAS ONE TABLET BY MOUTH EVERY DAY TAKE ONE TABLET BY MOUTH EVERY DAY SOLD: 09/17/2020 [facility] pantoprazole 40 MG Delayed Release Oral Tablet PANTOPRAZOLE SODIUM 08/13/2020 12:00:00 AM EDT tablet,delayed release (DR/EC) 30 T ROJAS ONE TABLET BY MOUTH EVERY DAY TAKE ONE TABLET BY MOUTH EVERY DAY SOLD: 11/15/2020 [facility] Atenolol 25 MG Oral Tablet ATENOLOL 08/13/2020 12:00:00 AM EDT tablet 60 TAKE ONE TABLET BY MOUTH TWICE A DAY TAKE ONE TABLET BY MOUTH TWICE A DAY SOLD: 10/16/2020 [facility] 150 mg 08/13/2020 12:00:00 AM EDT capsule,extended releas e 24hr 30 TAKE ONE CAPSULE BY MOUTH EVERY DAY TAKE ONE CAPSULE BY MOUTH EVERY DAY SOLD: 11/15/2020 [facility] 150 mg 08/13/2020 12:00:00 AM EDT capsule,extended releas e 24hr 30 TAKE ONE CAPSULE BY MOUTH EVERY DAY TAKE ONE CAPSULE BY MOUTH EVERY DAY SOLD: 09/17/2020 [facility] 25 mg 08/13/2020 12:00:00 AM EDT tablet 60 TAKE ONE TABLET BY MOUTH TWICE A DAY TAKE ONE TABLET BY MOUTH TWICE A DAY SOLD: 09/17/2020 [facility] Atenolol 25 MG Oral Tablet ATENOLOL 08/13/2020 12:00:00 AM EDT tablet 60 TAKE ONE TABLET BY MOUTH TWICE A DAY TAKE ONE TABLET BY MOUTH TWICE A DAY SOLD: 01/14/2021 [facility] 150 mg 08/13/2020 12:00:00 AM EDT capsule,extended releas e 24hr 30 TAKE ONE CAPSULE BY MOUTH EVERY DAY TAKE ONE CAPSULE BY MOUTH EVERY DAY SOLD: 12/15/2020 [facility] Atenolol 25 MG Oral Tablet ATENOLOL 08/13/2020 12:00:00 AM EDT tablet 60 TAKE ONE TABLET BY MOUTH TWICE A DAY TAKE ONE TABLET BY MOUTH TWICE A DAY SOLD: 11/15/2020 [facility] pantoprazole 40 MG Delayed Release Oral Tablet PANTOPRAZOLE SODIUM 08/13/2020 12:00:00 AM EDT tablet,delayed release (DR/EC) 30 T ROJAS ONE TABLET BY MOUTH EVERY DAY TAKE ONE TABLET BY MOUTH EVERY DAY SOLD: 10/16/2020 [facility] 150 mg 08/13/2020 12:00:00 AM EDT capsule,extended releas e 24hr 30 TAKE ONE CAPSULE BY MOUTH EVERY DAY TAKE ONE CAPSULE BY MOUTH EVERY DAY SOLD: 10/16/2020 [facility] Atenolol 25 MG Oral Tablet ATENOLOL 08/13/2020 12:00:00 AM EDT tablet 60 TAKE ONE TABLET BY MOUTH TWICE A DAY TAKE ONE TABLET BY MOUTH TWICE A DAY SOLD: 12/15/2020 [facility] Insurance Providers Payer name Policy type / Coverage type Policy ID Covered democrat ID Covered democrat's relationship to sykes Policy Sykes Plan Information [facility] COMMUNITY PLAN [facility] [id number] SP [id number] [facility] COMMUNTY PLAN [id number] [facility] AMERICHOICE XIX -[facility] [id number] 18 [id number] [facility] COMMUNITY PLAN XIX [id number] 18 [id number] [facility] COMMUNITY [facility]AN [facility] [id number] SP [id number] [facility] BLUE SHIELD-O/P [id number] 18 [id number] Problems, Conditions, and Diagnoses Code Display Name Description Problem Type Effective Dates Data Source(s) G52034 Pain in right shoulder Pain in right shoulder Diagnosi s 10/07/2021 02:57:00 PM [facility] I889 Nonspecific lymphadenitis, unspecified N onspecific lymphadenitis, unspecified Diagnosis 10/07/2021 02:57:00 PM [facility] R932 Abnormal findings on diagnostic imaging of liver and biliary tract Abnormal findings on diagnostic imaging of liver and biliary tract Diagnosis 10/05/2021 12:35:00 PM [facility] J90 Pleural effusion, not elsewhere classifi ed Pleural effusion, not elsewhere classified Diagnosis 10/05/2021 12:35:00 PM [facility] J849 Interstitial pulmonary disease, unspecif ied Interstitial pulmonary disease, unspecified Diagnosis 10/05/2021 12:35:00 PM [facility] M899 Disorder of bone, unspecified Disorder of bone, unspec ified Diagnosis 10/05/2021 12:35:00 PM [facility] E079 Disorder of thyroid, unspecified Disorder of thy roid, unspecified Diagnosis 10/05/2021 12:35:00 PM [facility] R221 Localized swelling, mass and lump, neck Localized swelling, mass and lump, neck Diagnosis 10/05/2021 12:35:00 PM [facility] R634 Abnormal weight loss Abnormal weight loss Diagnosis 10/05/2021 12:35:00 PM [facility] Z5321 Procedure and treatment not carried out due to patient leaving prior to being seen by health care provider Procedure and treatment not carried out due to patient leaving prior to being seen by health care provider Diagnosis 09/26/2021 10:57:00 AM [facility] R519 Headache, unspecified Headache, unspecified Diagnosis 08/29/2021 10:54:00 AM T [facility] K219 Gastro-esophageal reflux disease without esophagitis Gastro-esophageal reflux disease without esophagitis Diagnosis 08/29/2021 10:54:00 AM ED T [facility] B94619 Nicotine dependence, cigarettes, uncompl icated Nicotine dependence, cigarettes, uncomplicated Diagnosis 08/29/2021 10:54:00 AM EDT [facility] M7910 Myalgia, unspecified site Myalgia, unspecified site Di agnosis 08/29/2021 10:54:00 AM T [facility] Y[address] or not applicable Unspecified place or not applicable Diagnosis 08/06/2021 06:12:00 PM EDT [facility] [id number] Overexertion from prolonged static or awkward postures, initial encounter Overexertion from prolonged static or aw kward postures, initial encounter Diagnosis 08/06/2021 06:12:00 PM EDT [facility] [id number] Unspecified injury of left shoulder and upper arm, initial encounter Unspecified injury of left shoulder and upper arm, initial encounter Diagnosis 08/06/2021 06:12:00 PM EDT [facility] F83544 Pain in unspecified shoulder Pain in unspecified shoul dori Diagnosis 12/13/2020 02:07:00 PM [facility] N393 Stress incontinence (female) (male) Stress incon tinence (female) (male) Diagnosis 12/13/2020 02:07:00 PM [facility] G4700 Insomnia, unspecified Insomnia, unspecified Diagnosis 12/13/2020 02:07:00 PM [facility] E785 Hyperlipidemia, unspecified Hyperlipidemia, unspecifie d Diagnosis 12/13/2020 02:07:00 PM [facility] I10 Essential (primary) hypertension Essential (primary) h ypertension Diagnosis 12/13/2020 02:07:00 PM [facility] F419 Anxiety disorder, unspecified Anxiety disorder, unspec ified Diagnosis 12/13/2020 02:07:00 PM [facility] F41.9 Anxiety state Anxiety state Problem 12/13/2020 12:00:00 AM EST [facility]) I10 Essential hypertension Essential hypertension Problem 12/13/2020 12:00:00 AM EST [facility] ([facility]) K21.9 Gastroesophageal reflux disease Gastroesophageal reflu x disease Problem 12/13/2020 12:00:00 AM EST [facility] ([facility]) Surgeries/Procedures Procedure Description Date Indications Data Source(s) Pulse Oximetry Single Determination 10/22/2021 12:00:0 0 AM EST [facility] ([facility]) OFFICE OUTPATIENT VISIT 10 MINUTES 10/22/2021 12:00:00 AM EST [facility] ([facility]) OFFICE OUTPATIENT VISIT 25 MINUTES 10/07/2021 12:00:00 AM EST [facility] ([facility]) OFFICE OUTPATIENT VISIT 25 MINUTES 09/22/2021 12:00:00 AM EDT [facility] ([facility]) OFFICE OUTPATIENT VISIT 25 MINUTES 08/29/2021 12:00:00 AM EDT [facility] ([facility]) OFFICE OUTPATIENT VISIT 15 MINUTES 05/17/2021 12:00:00 AM EDT [facility] ([facility]) OFFICE OUTPATIENT VISIT 15 MINUTES 02/10/2021 12:00:00 AM EDT [facility] ([facility]) Brief Emotional/Behav Assessment W/ Scoring Doc Per Standard Inst 12/13/2020 12:00:00 AM EST [facility] ([facility]) Admin Patient Focused Health Risk Assessment Instrument 12/13/2020 12:00:00 AM EST [facility] ([facility]) OFFICE OUTPATIENT NEW 45 MINUTES 12/13/2020 12:00:00 A M EST [facility] ([facility]) Results ID Date Data Source [id number] 10/05/2021 08:35:00 PM EST [facility] [address] [place] [address] PHONE: [phone] FAX: [phone] Name .................. : YOLANDE Peoples Acct Number.................. : [id number] ROOM. ................. : MR Number ................... : [id number] Stay type ............. : O/P Discharge Date......... ... : 10/05/21 Admit Date ....... .. : 10/05/21 Admit Phys .................... : KRISS Jewell Date of ....... : 1965 Family Phys ................... : ANAIS Phone .................. : [phone] Age ................................ : 56 Film# .................. .:[id number] Sex ................................. : F Unsigned transcriptions are preliminary reports and do not represent a medical or legal document CT ABD & PELVIS W/ IV ONLY [id number] COMPLETE:10/05/21 16:53 GARY [id number] Reason for Exam: ABN WT LOSS CT ABDOMEN AND PELVIS WITH IV CONTRAST INDICATION: Abnormal weight loss COMPARISON: None IV CONTRAST: 75 cc Isovue-370 One or more of the following dose reduction techniques were utilized in effectively lowering the radiation dose for this examination: Automated Exposure Control, Adjustment of the mA and/or kV according to patient size, or Iterative reconstruction. FINDINGS: LUNG BASES: Moderate increased interstitial markings in the visualized right lower lung. 4 mm pleural-based nodule in the right lower lobe. Small right pleural effusion. LIVER/BILIARY: Multiple hypodense lesions in the liver. Largest include the following: Lateral segment left lobe series 201 image 26 measuring 23 mm, medial left lobe series 201 image 36 measuring 14 mm, right lobe laterally series 201 image 58 measuring 15 mm and anterior right lobe series 201 image 62 measuring 21 mm. No abnormalities are seen in the gallbladder. The bile ducts are not dilated. SPLEEN: Normal. PANCREAS: Normal. ADRENALS: Normal bilaterally. RIGHT KIDNEY: No hydronephrosis, stones or masses. LEFT KIDNEY: Nonobstructing stone midpole 5 mm. No hydronephrosis. Page 1 of 3 [facility] [address] [place] [address] PHONE: [phone] FAX: [phone] Name .................. : YOLANDE Peoples Acct Number.................. : [id number] ROOM. ................. : MR Number ................... : [id number] Stay type ............. : O/P Discharge Date.... ..... ... : 10/05/21 Admit Date ......... : 10/05/21 Admit Phys .................... : KRISS Jewell Date of ....... : 1965 Family Phys ................... : MILADYwireWAX Phone .................. : [phone] Age ................................ : 56 Film# .................. .:[id number] Sex ................................. : F Unsigned transcriptions are preliminary reports and do not represent a medical or legal document CT ABD & PELVIS W/ IV ONLY [id number] COMPLETE:10/05/21 16:53 GARY [id number] Reason for Exam: ABN WT LOSS OTHER : No abnormalities seen in the urinary bladder. No significant abnormalities seen in the reproductive organs. BOWEL/GI: No dilated bowel or obstruction. No bowel wall thickening. No hernia. PERITONEUM: No free fluid, focal fluid collection or free air. NODES: Scattered lymph nodes are seen in the retroperitoneum all measuring less than 1 cm short axis. There is a portacaval node measuring 10 mm short axis series 201 image 47. Periportal node series 201 image 42 measuring 8 mm short axis. RETROPERITONEUM: No masses. No AAA. SKELETAL: Multiple lytic destructive bone lesions. Largest is in the left sacrum series 201 image 101 measuring 35 mm. There is also a lesion in the posterior L5 vertebral body measuring 15 mm and the T11 vertebral body measuring 16 mm. Lytic and sclerotic lesions are seen in the iliac bones bilaterally. IMPRESSION: 1. Multiple liver lesions suspicious for metastatic disease. 2. Multiple destructive bone lesions suspicious for metastatic disease. 3. Interstitial disease in the right lower lung with a small pleural effusion. This is nonspecific but given the liver and bone findings, it raises the possibility of lymphangitic spread of tumor. Electronically Reviewed and Signed By Geovany Arana MD , 10/05/21 20:35, SOREN Transcribe Initials: ALISA , Transcribe Date: 10/05/21 18:26, Dictation Date: Copy for: KRISS MURILLO Dori via fax Page 2 of 3 [facility] [address] [place] [address] PHONE: [phone] FAX: [phone] Name .................. : YOLANDE Peoples Acct Number.................. : [id number] ROOM. ................. : MR Number ................... : [id number] Stay type ............. : O/P Discharge Date......... ... : 10/05/21 Admit Date ......... : 10/05/21 Admit Phys .................... : KRISS Jewell Date of ....... : 1965 Family Phys ................... : ANAIS Phone .................. : [phone] Age ................................ : 56 Film# .................. .:[id number] Sex ................................. : F Unsigned transcriptions are preliminary reports and do not represent a medical or legal document CT ABD & PELVIS W/ IV ONLY [id number] COMPLETE:10/05/21 16:53 GARY [id number] Reason for Exam: ABN WT LOSS Copy for: 710 MED REC Page 3 of 3 Name Value Range Interpretation Code Description Data Lu rce(s) Supporting Document(s) ID Date Data Source [id number] 10/05/2021 07:24:00 PM EST [facility] [address] [place] [address] PHONE: [phone] FAX: [phone] Name .................. : YOLANDE KUMAR Richelle Acct Number.................. : [id number] ROOM. ................. : MR Number ................... : [id number] Stay type ............. : O/P Discharge Date......... ... : 10/05/21 Admit Date ....... .. : 10/05/21 Admit Phys .................... : KRISS Jewell Date of ....... : 1965 Family Phys ................... : ANAIS Phone .................. : [phone] Age ................................ : 56 Film# .................. .:[id number] Sex ................................. : F Unsigned transcriptions are preliminary reports and do not represent a medical or legal document SOFT TISSUE HEAD/NECK [id number] COMPLETE:10/05/21 13:25 KNB 56393 Reason for Exam: LUMP ABOVE R COLLAR BONE EXAM: Ultrasound soft tissues of the head and neck HISTORY: Lump above right clavicle 2 weeks, right shoulder pain COMPARISON: None. FINDINGS: Heterogeneous oval hypoechoic abnormality is seen in the area of clinical concern above the right clavicle. This measures approximately 2.4 x 2.4 x 1.5 cm. Color flow imaging shows internal blood flow. It has an indistinct lobulated margin. Several lymph nodes are seen in the surrounding tissue and the right neck. There are 2 normal-appearing lymph nodes with uniform cortex and fatty hilum measuring 3 x 6 x 6 mm and 2 x 5 x 8 mm. A third lymph node is more spherical measuring 6 x 6 x 7 mm. None of these are enlarged by size criteria. IMPRESSION: Heterogeneous hypoechoic solid mass with ill-defined margins in the area of clinical concern measuring up to 2.[address] or MRI of the neck with contrast. Electronically Reviewed and Signed By Geovany Arana MD , 10/05/21 19:24, SOREN Hope nscribe Initials: SSR, Transcribe Date: 10/05/21 14:42, Dictation Date: Copy for: KRISS Meadows via fax Copy for: [address] [place] [address] Page 1 of 1 Name Value Range Interpretation Code Description Data Lu rce(s) Supporting Document(s) ID Date Data Source [id number] 08/29/2021 11:35:00 AM EDT [facility] Name Value Range Interpretation Code Description Data Lu rce(s) Supporting Document(s) Nuclear Ab [Titer] in Serum by Immunofluorescence Laboratory test res ult [facility]) Is patient fasting? N Rheumatoid factor [Units/volume] in Serum or Plasma Laboratory t est result 0-14 [facility] ([facility]) Is patient fasting? N Cyclic citrullinated peptide IgG Ab [Units/volume] in Serum or Plasma 6 units 0-19 [facility] ([facility]) Is patient fasting? N C reactive protein [Mass/volume] in Serum or Plasma by High sensitivity method 35.38 mg/L 1.00-3.00 Above high normal [facility] ([facility]) Is patient fasting? N ID Date Data Source [id number] 08/29/2021 11:35:00 AM EDT [facility] ([facility]) Name Value Range Interpretation Code Description Data Lu rce(s) Supporting Document(s) Sed Rate 40 mm/hr 0-30 Above high normal [facility] ([facility]) Is patient fasting? N Sed Rate Reenter 40 [facility] ([facility]) Is patient fasting? N ID Date Data Source [id number] 08/29/2021 11:35:00 AM EDT [facility] ([facility]) Name Value Range Interpretation Code Description Data Lu rce(s) Supporting Document(s) Erythrocyte sedimentation rate by Westergren method Laboratory test result [facility] ([facility]) C reactive protein [Mass/volume] in Serum or Plasma Laboratory test result [facility] ([facility]) Rheumatoid factor [Units/volume] in Serum or Plasma Laboratory test result [facility] ([facility]) Nuclear Ab [Titer] in Serum by Immunofluorescence Laboratory test res ult [facility] ([facility]) Cyclic citrullinated peptide IgG Ab [Units/volume] in Serum or Plasma [facility] test result [facility] Thyrotropin [Units/volume] in Serum or Plasma 2.53 uIU/mL 0.47-5.01 [facility] ([facility]) Is patient fasting? N ID Date Data Source [id number] 08/29/2021 11:35:00 AM EDT [facility] ([facility]) Name Value Range Interpretation Code Description Data Lu rce(s) Supporting Document(s) Calcidiol [Mass/volume] in Serum or Plasma 9 ng/mL [facility] ([facility]) Is patient fasting? N ID Date Data Source [id number] 08/29/2021 11:35:00 AM EDT [facility] ([facility]) Name Value Range Interpretation Code Description Data Lu rce(s) Supporting Document(s) Cve Panel Laboratory test result [facility] ([facility]) Is patient fasting? N Cholesterol 180 mg/dL 131-200 [facility] ([facility]) Is patient fasting? N Triglycerides 161 mg/dL 35-160 Above high normal [facility] ([facility]) Is patient fasting? N HDL 36 mg/dL 29-86 [facility] ([facility]) Is patient fasting? N Risk Factor 5.0 3.2-4.4 Above high normal [facility] ([facility]) Is patient fasting? N LDL 108 mg/dL 65-175 [facility] ([facility]) Is patient fasting? N LDL/HDL 3.00 1.47-3.22 [facility] ([facility]) Is patient fasting? N ID Date Data Source [id number] 08/29/2021 11:35:00 AM EDT [facility] ([facility]) Name Value Range Interpretation Code Description Data Lu rce(s) Supporting Document(s) Hemoglobin A1c/Hemoglobin.total in Blood 5.9 % 4.4-6.1 [facility] ([facility]) Is patient fasting? N ID Date Data Source [id number] 08/29/2021 11:35:00 AM EDT [facility] ([facility]) Name Value Range Interpretation Code Description Data Lu rce(s) Supporting Document(s) Comprehensive Metabo Laboratory test result [facility] ([facility]) Is patient fasting? N Sodium 139 meq/L 134-153 [facility] ([facility]) Is patient fasting? N Potassium 4.5 meq/L 3.6-5.0 [facility] ([facility]) Is patient fasting? N Chloride 105 meq/L 98-107 [facility] ([facility]) Is patient fasting? N Co2 22 meq/L 22-30 [facility] ([facility]) Is patient fasting? N Glucose 110 mg/dL 70-99 Above high normal [facility] ([facility]) Is patient fasting? N BUN 19 mg/dL 7-21 [facility] ([facility]) Is patient fasting? N Creatinine 0.6 mg/dL 0.7-1.5 Below low normal [facility] ( [facility]) Is patient fasting? N Total Protein 7.6 g/dL 6.3-8.2 [facility] ([facility]) Is patient fasting? N BUN/Creat 32 8-27 Above high normal [facility] ([facility]) Is patient fasting? N Albumin 4.5 g/dL 3.9-5.0 [facility] ([facility]) Is patient fasting? N A/G Ratio 1.5 0.8-2.0 [facility] ([facility]) Is patient fasting? N Globulin 3.1 GM/DL 2.4-3.2 [facility] ([facility]) Is patient fasting? N Calcium 9.7 mg/dL 8.4-10.2 [facility] ([facility]) Is patient fasting? N Total Bili Laboratory test result 0.2-1.3 [facility] ([facility]) Is patient fasting? N Alkaline Phos 281 U/L 38-126 Above high normal [facility] ([facility]) Is patient fasting? N Sgot/Ast 13 U/L 5-40 [facility] ([facility]) Is patient fasting? N SGPT/Alt 7 U/L 7-56 [facility] ([facility]) Is patient fasting? N Anion Gap 12.0 mmol/L 8.0-16.0 [facility] ([facility]) Is patient fasting? N Age 56 yrs [facility] ([facility]) Is patient fasting? N Non-Aa GFR Laboratory test result [facility] ([facility]) Is patient fasting? N Afr Amer GFR Laboratory test result [facility] ([facility]) Is patient fasting? N ID Date Data Source [id number] 08/29/2021 11:35:00 AM EDT [facility] ([facility]) Name Value Range Interpretation Code Description Data Lu rce(s) Supporting Document(s) CBC W/Automated Diff Laboratory test result [facility] ([facility]) Is patient fasting? N WBC 14.5 10^3/uL 4.2-11.0 Above high normal [facility] ([facility]) Is patient fasting? N Hemoglobin 14.1 g/dL 12.0-16.0 [facility] ([facility]) Is patient fasting? N RBC 4.82 10^6/uL 4.20-5.40 [facility] ([facility]) Is patient fasting? N Hematocrit 43.5 % 37.0-47.0 [facility] ([facility]) Is patient fasting? N MCH 29.3 pg 27.0-34.0 [facility] ([facility]) Is patient fasting? N MCV 90.2 fL 81.0-101 [facility] ([facility]) Is patient fasting? N MCHC 32.4 g/dL 31.0-36.0 [facility] ([facility]) Is patient fasting? N RDW 14.6 % 11.5-14.5 Above high normal [facility] ([facility]) Is patient fasting? N MPV 9.5 fL 7.4-10.4 [facility] ([facility]) Is patient fasting? N Platelets 496 10^3/uL 150-450 Above high normal [facility] ([facility]) Is patient fasting? N Neut 68.0 % 37.0-80.0 [facility] ([facility]) Is patient fasting? N Lymph 23.7 % 25.0-40.0 Below low normal [facility] ( [facility]) Is patient fasting? N [place] 5.9 % 3.0-8.0 [facility] ([facility]) Is patient fasting? N Eos 1.2 % 0.0-7.0 [facility] ([facility]) Is patient fasting? N Baso 0.6 % 0.0-2.5 [facility] ([facility]) Is patient fasting? N %Ig 0.6 % 0.0-0.0 Above high normal [facility] ([facility]) Is patient fasting? N %NRBC 0.0 % 0.0-0.0 [facility] ([facility]) Is patient fasting? N #Neut 9.85 10^3/uL 2.00-6.90 Above high normal [facility] ([facility]) Is patient fasting? N #[place] 0.86 10^3/uL 0.00-0.90 [facility] ([facility]) Is patient fasting? N #Lymph 3.43 10^3/uL 0.60-3.40 Above high normal [facility] ([facility]) Is patient fasting? N #Eos 0.18 10^3/uL 0.00-0.70 [facility] ([facility]) Is patient fasting? N #Ig 0.08 10^3/uL 0.00-0.10 [facility] ([facility]) Is patient fasting? N #Baso 0.09 10^3/uL 0.00-0.20 [facility] ([facility]) Is patient fasting? N #NRBC 0.00 10^3/uL 0.00-0.00 [facility] ([facility]) Is patient fasting? N Manual Diff Laboratory test result [facility] ([facility]) Is patient fasting? N RBC Morph Laboratory test result [facility] ([facility]) Is patient fasting? N ID Date Data Source [id number] 09/01/2021 06:33:00 AM EDT [facility] Name Value Range Interpretation Code Description Data Lu rce(s) Supporting Document(s) Cyclic citrullinated peptide IgA+IgG Ab [Units/volume] in Serum or Plasma by Immunoassay 6 units 0-19 [facility] Negative <20 Weak positive 20 - 39 Moderate positive 40 - 59 Strong positive >59 ID Date Data Source [id number] 08/31/2021 08:16:00 PM EDT [facility] Name Value Range Interpretation Code Description Data Lu rce(s) Supporting Document(s) Nuclear Ab [Titer] in Serum by Immunofluorescence Negative [facility] Negative <1:80 Borderline 1:80 Positive >1:80ICAP nomenclature: AC-0For more information about Hep-2 cell patterns useANApatterns.org, the official website for the InternationalConsensus on Antinuclear Antibody (MAC) Patterns (ICAP). ID Date Data Source [id number] 08/30/2021 06:59:00 AM EDT [facility] Name Value Range Interpretation Code Description Data Lu rce(s) Supporting Document(s) Calcidiol [Moles/volume] in Serum or Plasma 9 NG/ML [facility] VITAMIN-D(2 5HYDROXY) Deficiency: <=20 ng/ml Insufficiency: 21-29 ng/ml Preferred level: => 30 ng/ml ID Date Data Source [id number] 08/29/2021 07:13:00 PM EDT [facility] Name Value Range Interpretation Code Description Data Lu rce(s) Supporting Document(s) Erythrocyte sedimentation rate by Westergren method 40 mm/hr 0 - 30 H [facility] SED RATE REENTER 40 [facility] ID Date Data Source [id number] 08/29/2021 07:05:00 PM EDT [facility] Name Value Range Interpretation Code Description Data Lu rce(s) Supporting Document(s) C reactive protein [Mass/volume] in Serum or Plasma by High sensitivity method 35.38 MG/L 1.00 - 3.00 H [facility] CDC/S HS-CRP CUT-OFF: RELATIVE RISK: <1.0 mg/L Low 1.0 - 3.0 mg/L Average >3.0 mg/L High Optimally, the average of HS-CRP results repeated two weeks apart should be used for risk assessment. ID Date Data Source [id number] 08/29/2021 06:32:00 PM EDT [facility] Name Value Range Interpretation Code Description Data Lu rce(s) Supporting Document(s) Thyrotropin [Units/volume] in Serum or Plasma by Detec tion limit <= 0.05 mIU/L 2.53 uIU/mL 0.47 - 5.01 [facility] ID Date Data Source [id number] 08/29/2021 06:29:00 PM EDT [facility] Name Value Range Interpretation Code Description Data Lu rce(s) Supporting Document(s) Hemoglobin A1c/Hemoglobin.total in Blood 5.9 % 4.4 - 6.1 [facility] ID Date Data Source [id number] 08/29/2021 06:21:00 PM EDT [facility] Name Value Range Interpretation Code Description Data Lu rce(s) Supporting Document(s) CBC W/AUTOMATED DIFF [facility] COMPLETE BLOOD COUNT Leukocytes [#/volume] in Blood by Automated count 14.5 10^3/uL 4.2 - 11.0 H [facility] Erythrocytes [#/volume] in Blood by Automated count 4.82 10^6/uL 4. 20 - 5.40 [facility] Hemoglobin [Mass/volume] in Blood 14.1 g/dL 12.0 - 16.0 [facility] Hematocrit [Volume Fraction] of Blood by Automated count 43.5 % 3 7.0 - 47.0 [facility] Erythrocyte mean corpuscular volume [Entitic volume] by Auto mated count 90.2 fL 81.0 - 101 [facility] Erythrocyte mean corpuscular hemoglobin [Entitic mass] by Automated count 29.3 pg 27.0 - 34.0 [facility] Erythrocyte mean corpuscular hemoglobin concentration [Mass/volume] by Automated count 32.4 g/dL 31.0 - 36.0 [facility] Erythrocyte distribution width [Ratio] by Automated count 14.6 % 11.5 - 14.5 H [facility] Platelets [#/volume] in Blood by Automated count 496 10^3/uL 150 - 45 0 H [facility] Platelet mean volume [Entitic volume] in Blood by Automated count 9.5 fL 7.4 - 10.4 [facility] Neutrophils/100 leukocytes in Blood by Automated count 68.0 % 37. 0 - 80.0 [facility] Lymphocytes/100 leukocytes in Blood by Manual count 23.7 % 25.0 - 40.0 L [facility] Monocytes/100 leukocytes in Blood by Automated count 5.9 % 3.0 - 8.0 [facility] Eosinophils/100 leukocytes in Blood by Automated count 1.2 % 0.0 - 7.0 [facility] Basophils/100 leukocytes in Blood by Automated count 0.6 % 0.0 - 2.5 [facility] %IG 0.6 % 0.0 - [facility] 0.0 - 0.0 [facility] Neutrophils [#/volume] in Blood by Automated count 9.85 10^3/uL 2.00 - 6.90 H [facility] Lymphocytes [#/volume] in Blood by Automated count 3.43 10^3/uL 0.60 - 3.40 H [facility] Monocytes [#/volume] in Blood by Automated count 0.86 10^3/uL 0.00 - 0.90 [facility] Eosinophils [#/volume] in Blood by Automated count 0.18 10^3/uL 0.00 - 0.70 [facility] Basophils [#/volume] in Blood by Automated count 0.09 10^3/uL 0.00 - 0.20 [facility] #IG 0.08 10^3/uL 0.00 - 0.10 [facility] H ospital #NRBC 0.00 10^3/uL 0.00 - 0.00 [facility] ospital MANUAL DIFF NOT INDICATED [facility] RBC MORPH NOT INDICATED [facility] spital ID Date Data Source [id number] 08/29/2021 06:18:00 PM EDT [facility] Name Value Range Interpretation Code Description Data Lu rce(s) Supporting Document(s) RA QUANT <10 IU/mL 0 - 14 [facility] ID Date Data Source [id number] 08/29/2021 06:18:00 PM EDT [facility] Name Value Range Interpretation Code Description Data Lu rce(s) Supporting Document(s) CVE PANEL [facility] LIPID PANEL Cholesterol [Mass/volume] in Serum or Plasma 180 MG/DL 131 - 200 [facility] Deprecated Triglyceride [Mass/volume] in Serum or Plasma 161 MG/DL 3 5 - 160 [facility] HDL 36 MG/DL 29 - 86 [facility] Cholesterol in LDL [Mass/volume] in Serum or Plasma by Direc t assay 108 mg/dL 65 - 175 [facility] Cholesterol.total/Cholesterol in HDL [Mass Ratio] in Serum o r Plasma 5.0 3.2 - 4.4 H [facility] LDL/HDL 3.00 1.47 - 3.22 [facility] ital CVE RISK CHOL/HDL LDL/HDLMEN: 1/2 AVERAGE 3.43 1.00 AVERAGE 4.97 3.55 2X AVERAGE 9.55 6.25 3X AVERAGE 23.99 7.99WOMEN: 1/2 AVERAGE 3.27 1.47 AVERAGE 4.44 3.22 2X AVERAGE 7.05 5.03 3X AVERAGE 11.04 6.14 ID Date Data Source [id number] 08/29/2021 06:18:00 PM EDT [facility] Name Value Range Interpretation Code Description Data Lu rce(s) Supporting Document(s) COMPREHENSIVE METABOLIC PANEL [facility] COMPREHENSIVE METABOLIC PANEL Sodium [Moles/volume] in Serum or Plasma 139 mEq/L 134 - 153 [facility] Potassium [Moles/volume] in Serum or Plasma 4.5 mEq/L 3.6 - 5.0 [facility] Chloride [Moles/volume] in Serum or Plasma 105 mEq/L 98 - 107 [facility] Carbon dioxide, total [Moles/volume] in Serum or Plasma 22 MEQ/L 22 - 30 [facility] Glucose [Mass/volume] in Serum or Plasma 110 MG/DL 70 - 99 H [facility] BUN 19 MG/DL 7 - 21 [facility] al Creatinine [Mass/volume] in Serum or Plasma 0.6 MG/DL 0.7 - 1.5 L [facility] BUN/CREAT 32 8 - 27 H [facility] al Protein [Mass/volume] in Serum or Plasma 7.6 G/DL 6.3 - 8.2 [facility] Albumin [Mass/volume] in Serum or Plasma 4.5 G/DL 3.9 - 5.0 [facility] Globulin [Mass/volume] in Serum by calculation 3.1 GM/DL 2.4 - 3.2 [facility] A/G RATIO 1.5 0.8 - 2.0 [facility] Calcium [Mass/volume] in Serum or Plasma 9.7 MG/DL 8.4 - 10.2 [facility] Bilirubin.total [Mass/volume] in Serum or Plasma <0.7 MG/DL 0.2 - 1.3 [facility] Alkaline phosphatase [Enzymatic activity/volume] in Serum or Plasma 281 U/L 38 - 126 H [facility] Aspartate aminotransferase [Enzymatic activity/volume] in Serum or Plasma 13 U/L 5 - 40 [facility] Alanine aminotransferase [Enzymatic activity/volume] in Seru m or Plasma 7 U/L 7 - 56 [facility] Anion gap 3 in Serum or Plasma 12.0 mmol/L 8.0 - 16.0 [facility] AGE 56 yrs [facility] Hospit al NON-AA GFR >60 mL/min [facility] Hosp ital AFR AMER GFR >60 mL/min [facility] Ho spital Male GFR In terprentation 20-49 yrs >60 mL/min Normal 50-59 yrs >56 mL/min Normal 60-69 yrs >49 mL/min Normal 70-79yrs >42 mL/min Normal 80 and above >35 mL/min Normal Female GFR Interpretation 20-39 yrs >60 mL/min Normal 40-49 yrs >58 mL/min Normal 50-59 yrs >51 mL/min Normal 60-69 yrs >45 mL/min Normal 70-79 yrs >39 mL/min Normal 80 and above >32 mL/min Normal ID Date Data Source [id number] 08/06/2021 06:12:00 PM EDT [facility] 1 Medication Reconciliation Report [facility] Emergency Department [address] [place] [address] Phone #: ext- [phone] 08/06/2021 17:42 Patient: STACY LANIER Sex: F : 1965 Age: 56yWeight: 92.5 kgHeight/Length: 67 in.BMI: 32.0ALLERGIES: No Known Drug AllergyThe patient's Home Medications are listed below:THE FOLLOWING MEDICATIONS NEED TO BE RECONCILED: Atenolol Oral 25 mg, 2x a day Effexor XR Oral 150 mg, daily hydrOXYzine HCl Oral (50 mg), prn Pantoprazole Sodium Oral 40 mg, daily Pravastatin Sodium Oral 40 mg, dailyThe source(s) of the original Home Medication information:Not obtained.The following Medications were given to the patient in the Emergency Department:None.The following Medications were prescribed to the patient:None. Name Value Range Interpretation Code Description Data Lu rce(s) Supporting Document(s) ID Date Data Source [id number] 08/06/2021 06:12:00 PM EDT [facility] 1 Medication Administration Record [facility] Emergency Department [address] [place] [address] Phone #: ext- [phone] 08/06/2021 17:42 Patient: STACY LANIER Sex: F : 1965 Age: 56yWeight: 92.5 kgHeight/Length: 67 inBMI: 32ALLERGIES: No Known Drug AllergyDate/Time Medication Administered Medication Ordered Name Value Range Interpretation Code Description Data Lu rce(s) Supporting Document(s) ID Date Data Source [id number] 08/06/2021 06:12:00 PM EDT [facility] 1 Clinical Report - Nurses [facility] Emergency Department [address] [place] [address] Phone #: ext [phone] 08/06/2021 17:42 Patient: STACY LANIER Sex: F : 1965 Age: 56yTRIAGEArrived by private vehicle. Historian: patient.Acuity: LEVEL 4.Chief Complaint: INJURY TO LEFT SHOULDER.Alert. No acute distress.Occurred 11:30 08/06/2021. ( PT reports having a smokers cough and while coughing felt a poppingsensation in her left shoulder and pain that radiated to her left hand. She denies any chest pain or SOB.).Treatment [employer]PER[employer]OR:Took ibuprofen.SEPSIS SCREEN: SIRS SCREEN NEGATIVE. SEPSIS SCREEN NEGATIVE. No suspected or confirmedsigns of infection present.WINDY COMA SCORE: 15- eyes open- spontaneous (4); best verbal response- oriented (5); bestmotor response- obeys commands (6). --18:07 08/06/21 Ana Bradford R.N.18:01 08/06/21. BP: 152 /82. HR: 77. RR: 18. O2 saturation: 95%. Temp: 97.9 F. Pain level now 05/28.--18:08/06/21 Ana Bradford R.N.Weight: 92.5 kg stated. Height/Length: 67 inches Per Patient. BMI: 32. --18:04 08/06/21 Ana Bradford R.N.MedicationsEffexor XR Oral 150 mg, daily. --18:06 08/06/21 Ana Bradford R.N. Pravastatin Sodium Oral 40 mg, daily. --18:06 08/06/21 Ana Bradford R.N. Atenolol Oral 25 mg, 2x a day. --18:06 08/06/21 Ana Bradford R.N. hydrOXYzine HCl Oral (Tablet 50 mg), as needed. --18:06 08/06/21 Ana Bradford R.N. Pantoprazole Sodium Oral 40 mg, daily. --18:07 08/06/21 Ana Bradford R.N.AllergiesNo Known Drug Allergy. --18:06 08/06/21 Ana Bradford R.N.PROBLEMS:Anxiety Reaction.Hypertension. --18:08/06/21 Ana Bradford R.N.ADDITIONAL SURGERIES: 2 Clinical Report - Nurses [facility] Emergency Department [address] [place] [address] Phone #: ext- [phone] 08/06/2021 17:42 Patient: STACY LANIER [facility]#: [id number] Sex: F : 1965 Age: 56y . --18:07 08/06/21 Ana Bradford R.N. History PAST MEDICAL HX: Immunizations: up-to-date. Denies current . SOCIAL HX: Heavy tobacco smoker- 1 pack per day. No alcohol use or drug use. The patient was offered HIV testing but declined and hepatitis C testing but declined. The patient has not traveled outside the [place] Infectious disease exposure: The patient was not exposed to C-diff, MRSA, VRE, CRE or Coronavirus. SELF HARM ASSESSMENT: Self harm assessment was performed. The patient answered "no" to the question(s) "Have you recently felt down, depressed, or hopeless?", "Do you have thoughts of harming or killing yourself?", "Do you have a plan for harming or killing yourself?", "Have you recently had thoughts about harming or killing others?", "Do you have any dangerous items in your possession?", "Have you noticed less interest or pleasure in doing things?", "Are you here because you tried to hurt yourself?" and "Have you ever tried to hurt yourself before today?". ABUSE ASSESSMENT: No report of abuse. NUTRITIONAL RISK ASSESSMENT: The nutritional risk assessment revealed no deficiencies. FUNCTIONAL ASSESSMENT: Functional assessment: no impairments noted. LEARNING NEEDS ASSESSMENT: The learning needs assessment revealed no barriers. FALL RISK ASSESSMENT: Fall risk assessment completed. No risk factors identified. SKIN INTEGRITY ASSESSMENT: Skin integrity risk assessment completed. No skin integrity risk identified. --18:07 08/06/21 Ana Bradford R.N. Interventions Identification band on patient. To waiting room. No allergy band on patient. --18:07 08/06/21 Ana Bradford R.N.DISPO SITION / DISCHARGE 09:35 08/11/21. Pain level now: 0/10. --09:35 08/11/21 Karen Pennington R.N.Locked/Released at 08/11/2021 09:35 by Karen Pennington R.N. Name Value Range Interpretation Code Description Data Lu rce(s) Supporting Document(s) Procedure Social History No Information Vital Signs ID Date Data Source UNK Name Value Range Interpretation Code Description Data Source(s) Systolic blood pressure 150 mm[Hg] 150 mm[Hg] [facility] ([facility]) Diastolic blood pressure 93 mm[Hg] 93 mm[Hg] [facility]) Heart rate 85 /min 85 /min [facility] ([facility]) Body temperature 97.9 [degF] 97.9 [degF] [facility] ([facility]) Respiratory rate 18 /min 18 /min [facility] ( [facility]) Oxygen saturation in Arterial blood by Pulse oximetry 94 % 94 % [facility] ([facility]) Systolic blood pressure 126 mm[Hg] 126 mm[Hg] [facility] ([facility]) Diastolic blood pressure 78 mm[Hg] 78 mm[Hg] [facility] ([facility]) Heart rate 85 /min 85 /min [facility] ([facility]) Body temperature 96.0 [degF] 96.0 [degF] [facility] ([facility]) Respiratory rate 16 /min 16 /min [facility] ( [facility]) Oxygen saturation in Arterial blood by Pulse oximetry 98 % 98 % [facility] ([facility]) Body weight 185.00 [lb_av] 185.00 [lb_av] [facility] ([facility]) Body weight 83.916 kg 83.916 kg [facility] ([facility]) Heart rate 84 /min 84 /min [facility] ([facility]) Oxygen saturation in Arterial blood by Pulse oximetry 93 % 93 % [facility] ([facility]) Systolic blood pressure 130 mm[Hg] 130 mm[Hg] [facility] ([facility]) Diastolic blood pressure 82 mm[Hg] 82 mm[Hg] [facility] ([facility]) Body temperature 96.0 [degF] 96.0 [degF] [facility] ([facility]) Respiratory rate 16 /min 16 /min [facility] ( [facility]) Body weight 188.50 [lb_av] 188.50 [lb_av] [facility] ([facility]) Body weight 85.504 kg 85.504 kg [facility] ([facility]) Body height 67 [in_i] 67 [in_i] [facility] ([facility]) 5'7" Body mass index (BMI) [Ratio] 29.5 kg/m2 29.5 k g/m2 [facility] ([facility]) Body surface area Derived from formula 1.97 m2 1.97 m2 [facility] ([facility]) Body weight 86.184 kg 86.184 kg [facility] ([facility]) Body height 67 [in_i] 67 [in_i] [facility] ([facility]) 5'7" Body mass index (BMI) [Ratio] 29.8 kg/m2 29.8 k g/m2 [facility] ([facility]) Diastolic blood pressure 68 mm[Hg] 68 mm[Hg] [facility] ([facility]) She has not had her meds yet today remin ded to t Systolic blood pressure 122 mm[Hg] 122 mm[Hg] [facility] ([facility]) She has not had her meds yet today remin ded to t Heart rate 86 /min 86 /min [facility] ([facility]) Respiratory rate 18 /min 18 /min [facility] ( [facility]) Oxygen saturation in Arterial blood by Pulse oximetry 97 % 97 % [facility] ([facility]) Body weight 190.00 [lb_av] 190.00 [lb_av] [facility] ([facility]) wgt loss noted Body surface area Derived from formula 1.98 m2 1.98 m2 [facility] ([facility]) Body temperature 97.7 [degF] 97.7 [degF] [facility] ([facility]) Body surface area Derived from formula 2.04 m2 2.04 m2 [facility] ([facility]) Body mass index (BMI) [Ratio] 32.0 kg/m2 32.0 k g/m2 [facility] ([facility]) Body height 67 [in_i] 67 [in_i] [facility] ([facility]) 5'7" Body temperature 96.0 [degF] 96.0 [degF] [facility] ([facility]) Body weight 92.704 kg 92.704 kg [facility] ([facility]) Systolic blood pressure 136 mm[Hg] 136 mm[Hg] [facility] ([facility]) Diastolic blood pressure 84 mm[Hg] 84 mm[Hg] [facility] ([facility]) Heart rate 78 /min 78 /min [facility] ([facility]) Respiratory rate 16 /min 16 /min [facility] ( [facility]) Oxygen saturation in Arterial blood by Pulse oximetry 96 % 96 % [facility] ([facility]) Body weight 204.38 [lb_av] 204.38 [lb_av] [facility] ([facility]) Systolic blood pressure 146 mm[Hg] 146 mm[Hg] [facility] ([facility]) Diastolic blood pressure 86 mm[Hg] 86 mm[Hg] [facility] ([facility]) Heart rate 87 /min 87 /min [facility] ([facility]) Body temperature 96.9 [degF] 96.9 [degF] [facility] ([facility]) Respiratory rate 18 /min 18 /min [facility] ( [facility]) Oxygen saturation in Arterial blood by Pulse oximetry 98 % 98 % [facility] ([facility]) Body weight 203.25 [lb_av] 203.25 [lb_av] [facility] ([facility]) Body weight 92.194 kg 92.194 kg [facility] ([facility]) Body height 67 [in_i] 67 [in_i] [facility] ([facility]) 5'7" Body mass index (BMI) [Ratio] 31.8 kg/m2 31.8 k g/m2 [facility] ([facility]) Body surface area Derived from formula 2.04 m2 2.04 m2 [facility] ([facility]) Systolic blood pressure 124 mm[Hg] 124 mm[Hg] [facility] ([facility]) Diastolic blood pressure 84 mm[Hg] 84 mm[Hg] [facility] ([facility]) Heart rate 83 /min 83 /min [facility] ([facility]) Body temperature 97.2 [degF] 97.2 [degF] [facility] ([facility]) Respiratory rate 17 /min 17 /min [facility] ( [facility]) Oxygen saturation in Arterial blood by Pulse oximetry 97 % 97 % [facility] ([facility]) Body weight 203.38 [lb_av] 203.38 [lb_av] [facility] ([facility]) Body weight 92.251 kg 92.251 kg [facility] ([facility]) Body height 67 [in_i] 67 [in_i] [facility] ([facility]) 5'7" Body mass index (BMI) [Ratio] 31.8 kg/m2 31.8 k g/m2 [facility] ([facility]) Body surface area Derived from formula 2.04 m2 2.04 m2 [facility] ([facility])
[2021-10-22 20:00] LABS: BASO # 0.1 10^3/uL (0.0-0.2); BASO % 0.6 % (0.0-1.0); EOS # 0.1 10^3/uL (0.0-0.5); EOS % 0.6 % (0.0-3.0); HEMATOCRIT 43.5 % (36.0-47.0); HEMOGLOBIN 14.1 g/dl (12.0-15.5); LYMPH # 3.3 10^3/uL (1.5-5.0); MEAN CORPUSCULAR HEMOGLOBIN 28.3 pg (27.0-33.0); MEAN CORPUSCULAR HGB CONC 32.4 g/dl (32.0-36.5); MEAN CORPUSCULAR VOLUME 87.2 fl (80.0-96.0); MONO # 1.2 10^3/uL (0.0-0.8); MONO % 6.5 % (2.0-8.0); NEUTROPHILS # 13.4 10^3/uL (1.5-8.5); NEUTROPHILS % 73.6 % (36.0-66.0); PLATELET COUNT, AUTOMATED 558 10^3/uL (150-450); RED BLOOD COUNT 4.99 10^6/uL (4.00-5.40); WHITE BLOOD COUNT 18.2 10^3/uL (4.0-10.0)
[2021-10-22 20:26] LABS: ALT/SGPT 22 U/L (12-78); BILIRUBIN,DIRECT < 0.1 MG/DL (0.0-0.2); BILIRUBIN,TOTAL 0.4 MG/DL (0.2-1.0); MAGNESIUM LEVEL 1.8 MG/DL (1.8-2.4); TOTAL PROTEIN 7.7 GM/DL (6.4-8.2)
[2021-10-22] MEDS ORDERED: ISOVUE-370 76% 100ML VIAL As Ordered ONE (20:34)
[2021-10-22] MEDS: GABAPENTIN 100 MG CAP PO SCH (21:00)
--- NOTE | 2021-10-22 21:15 | REPVR ---
PROCEDURE INFORMATION: Exam: CTA Chest With Contrast Exam date and time: 10/22/2021 8:41 PM Age: 56 years old Clinical indication: Abnormal findings; Abnormal radiologic exam of lung or chest; Additional info: ? Hemothorax TECHNIQUE: Imaging protocol: Computed tomographic angiography of the chest with contrast. 3D rendering (Not supervised by radiologist): MIP and/or 3D reconstructed images were created by the technologist. Radiation optimization: All CT scans at this facility use at least one of these dose optimization techniques: automated exposure control; mA and/or kV adjustment per patient size (includes targeted exams where dose is matched to clinical indication); or iterative reconstruction. Contrast material: ISOVUE 370; Contrast volume: 100 ml; Contrast route: INTRAVENOUS (IV); COMPARISON: No relevant prior studies available. FINDINGS: Pulmonary arteries: There are no pulmonary emboli. Aorta: There is no aortic dissection or aneurysm. Lungs: Right perihilar reticular infiltrates. Noncalcified 7 mm pulmonary parenchymal nodule demonstrated in the right lower lobe. Atelectasis and or tumor located in the right middle and upper lobes with occlusion of the upper lobe and middle lobe bronchi. 4 x 6 mm spiculated nodule in the left upper lobe. Finding may represent scarring although neoplasm not excluded. Mild centrilobular emphysematous changes in the left upper lobe. Pleural spaces: Small to moderate right pleural effusion. No increased density to suggest a hemothorax. Heart: Unremarkable. No cardiomegaly. No pericardial effusion. Lymph nodes: Unremarkable. No enlarged lymph nodes. Liver: Multiple hyperdense foci demonstrated in the liver measuring up to 2.3 cm in the medial aspect of the right lobe of the liver suspect for hepatic metastases. Gallbladder and bile ducts: The gallbladder is incompletely distended. This is most likely related to incomplete fasting. Clinical correlation to exclude gallbladder pathology suggested. Bones/joints: Fragmented appearance of the distal right clavicle adjacent to the acromioclavicular joint. Finding may represent degenerative change versus a fracture. If clinically desired further evaluation with shoulder x-ray suggested. Expansile destructive rib lesion left 1st rib consistent with a metastatic focus. Pathologic fracture posterior left 9th rib. Compression fracture secondary to lytic focus at T11. No retropulsion of bony elements. Lytic destructive focus demonstrated in the manubrium with a nondisplaced manubrial fracture. Lytic focus in the upper sternum consistent with metastasis. Soft tissues: Unremarkable. IMPRESSION: 1. Right perihilar reticular infiltrates. 2. Noncalcified 7 mm pulmonary parenchymal nodule demonstrated in the right lower lobe. Finding may represent a metastatic focus. 3. Small to moderate right pleural effusion. No increased density to suggest a hemothorax. 4. Atelectasis and or tumor located in the right middle and upper lobes with occlusion of the upper lobe and middle lobe bronchi. 5. 4 x 6 mm spiculated nodule in the left upper lobe. Finding may represent scarring although neoplasm not excluded. 6. Mild centrilobular emphysematous changes in the left upper lobe. 7. Fragmented appearance of the distal right clavicle adjacent to the acromioclavicular joint. Finding may represent degenerative change versus a fracture. If clinically desired further evaluation with shoulder x-ray suggested. 8. Expansile destructive rib lesion left 1st rib consistent with a metastatic focus. 9. Pathologic fracture posterior left 9th rib. 10. Compression fracture secondary to lytic focus at T11. No retropulsion of bony elements. 11. There is no aortic dissection or aneurysm. 12. There are no pulmonary emboli. 13. Multiple hyperdense foci demonstrated in the liver measuring up to 2.3 cm in the medial aspect of the right lobe of the liver suspect for hepatic metastases. 14. Lytic destructive focus demonstrated in the manubrium with a nondisplaced manubrial fracture. Electronically signed by: Antonio Culver On 10/22/2021 21:14:39 PM
--- NOTE | 2021-10-22 21:20 | REPVR ---
PROCEDURE INFORMATION: Exam: CT Abdomen And Pelvis With Contrast Exam date and time: 10/22/2021 8:41 PM Age: 56 years old Clinical indication: Other: Enlarged right supraclavicular lymph node; Additional info: ? Hemothorax, enlarged right supraclavicular lymph node TECHNIQUE: Imaging protocol: Computed tomography of the abdomen and pelvis with contrast. Radiation optimization: All CT scans at this facility use at least one of these dose optimization techniques: automated exposure control; mA and/or kV adjustment per patient size (includes targeted exams where dose is matched to clinical indication); or iterative reconstruction. Contrast material: ISOVUE 370; Contrast volume: 100 ml; Contrast route: INTRAVENOUS (IV); COMPARISON: No relevant prior studies available. FINDINGS: Liver: There is a diffuse decrease in hepatic parenchymal density, consistent with steatosis. Multiple hypodense lesions demonstrated in the liver measuring up to 2 cm in the medial aspect of the inferior portion of the right lobe consistent with metastatic disease. Lobular contour of the liver particularly involving the capsular margin of the right lobe, finding which may be related to underlying metastatic disease although chronic liver disease of other etiology including cirrhosis not excluded. Gallbladder and bile ducts: The gallbladder is incompletely distended. This is most likely related to incomplete fasting. Clinical correlation to exclude gallbladder pathology suggested. Pancreas: Normal. No ductal dilation. Spleen: Normal. No splenomegaly. Adrenal glands: Normal. No mass. Kidneys and ureters: Nonobstructive calculus interpolar region left kidney. Stomach and bowel: Unremarkable. No obstruction. No mucosal thickening. Appendix: No evidence of appendicitis. Intraperitoneal space: Unremarkable. No free air. No significant fluid collection. Vasculature: The aortoiliac vessels demonstrate mild atherosclerotic calcification. Lymph nodes: Unremarkable. No enlarged lymph nodes. Urinary bladder: Unremarkable as visualized. Reproductive: Unremarkable as visualized. Bones/joints: Moderate central spinal stenosis L2-L3, severe central spinal stenosis L3-L4 and L4-L5. Mixed lytic and blastic foci demonstrated in the right iliac bone, right and left sacrum and left supra-acetabular region. Left sacral lesion obliterates the 2nd sacral foramen. Findings consistent with metastatic disease. Soft tissues: Unremarkable. IMPRESSION: 1. Mixed lytic and blastic foci demonstrated in the right iliac bone, right and left sacrum and left supra-acetabular region. Left sacral lesion obliterates the 2nd sacral foramen. Findings consistent with metastatic disease. 2. There is a diffuse decrease in hepatic parenchymal density, consistent with steatosis. 3. Multiple hypodense lesions demonstrated in the liver measuring up to 2 cm in the medial aspect of the inferior portion of the right lobe consistent with metastatic disease. 4. Lobular contour of the liver particularly involving the capsular margin of the right lobe, finding which may be related to underlying metastatic disease although chronic liver disease of other etiology including cirrhosis not excluded. 5. The gallbladder is incompletely distended. This is most likely related to incomplete fasting. Clinical correlation to exclude gallbladder pathology suggested. Electronically signed by: Antonio Culver On 10/22/2021 21:20:25 PM
[2021-10-22] MEDS ORDERED: PIPERACILLIN/TAZOBACTAM SOD 4.5 GM in D5W MINI-BAG PLUS 50 ML IV ONE (21:35)
[2021-10-22] MEDS ORDERED: HOME MED LIST COMPLETE! XX SCH (21:45)
[2021-10-22] MEDS ORDERED: MORPHINE 2 MG/ML 1ML VIAL (J2270) IV ONE (22:00)
[2021-10-22] MEDS ORDERED: LORazepam 2 MG/ML VIAL IV STA (22:00)
[2021-10-22] MEDS ORDERED: ULTRACET TAB PO PRN (22:35)
[2021-10-22] MEDS ORDERED: ONDANSETRON 4MG/2ML VIAL IV PRN (22:35)
[2021-10-22] MEDS ORDERED: hydrOXYzine 50 MG TAB PO PRN (22:35)
[2021-10-22] MEDS ORDERED: MOM 30ML SUSPENSION UDC PO PRN (22:35)
--- OUTSIDE RECORDS SUMMARY | 2021-10-22 22:45 | CCD ---
Author Author [facility] Organization [facility] Address Unknown Phone Unavailable Care Team Providers Care Senior [email or web address] Developer Name Role Phone ZhangPolly PA Unavailable Unavailable [...] is protected by Article 27-F of the [facility] Public Health law. If you continue you may have access to information: Regarding HIV / AIDS; Provided by facilities licensed or operated by the [facility] Office of Mental Health; or Provided by the [facility] Office for People With Developmental Disabilities. If such information is present, then the following [facility] mandated warning applies: This information has [...] law may result in a fine or long term sentence or both. A general authorization for the release of medical or other information is NOT sufficient authorization for further disc losure. Allergies and Adverse Reactions Type Description Substance Reaction Status Data Source(s ) No Known Drug Allergies No Known Drug Allergies [facility] Food allergy [facility] DRUGS [facility] DRUGS [facility] Encounters Encounter Providers Location Date Indications Data Source(s ) Outpatient Attender: NATEHN ABURTO CAttender: Polly Zhang PAConsultant: Barbara Maria MD 10/22/2021 01:38:00 PM EST - 10/22/2021 01:38:00 PM EST [facility] Outpatient Attender: NATHEN MAYES PA-C Family Practice 12:30:00 PM EST [facility] ([facility] Outpatient Attender: Polly Zhang PAConsultant: Barbara combs MD 10/07/2021 02:57:00 PM EST - 10/07/2021 02:57:00 PM EST [facility] Outpatient Attender: Polly Zhang PAConsultant: Barbara combs MD 10/05/2021 12:35:00 PM EST - 10/05/2021 01:36:00 PM [facility] Patient discharged. Outpatient Attender: Polly Zhang PAConsultant: Barbara combs MD 09/22/2021 03:57:00 PM EDT - 09/22/2021 03:57:00 PM EDT [facility] Outpatient Attender: Polly Zhang PAConsultant: Barbara combs MD 09/22/2021 01:40:33 PM EDT - 09/26/2021 10:57:00 AM [facility] Patient discharged. Outpatient Attender: Polly Zhang PAConsultant: Barbara combs MD 09/20/2021 08:14:55 AM EDT - 09/21/2021 01:39:00 PM EDT [facility] Patient discharged. Outpatient Attender: Alyssa PORTILLO ttender: Polly Zhang PAReferrer: Polly Zhang PAConsultant: Barbara Maria MD 09/2021 10:54:00 AM EDT - 08/29/2021 10:54:00 AM EDT [facility] Emergency Attender: BART FONG MDConsultant: Barbara callejas MD 08/06/2021 06:12:00 PM EDT - 08/06/2021 07:07:00 PM EDT [facility] Patient discharged. Outpatient Attender: Alyssa ABURTOCConsultant: PARTH VICTORIA MD 05/17/2021 02:26:00 PM EDT - 05/17/2021 02:26:00 PM EDT [facility] Outpatient Attender: Alyssa KNIGHTonsultant: PARTH VICTORIA MD 02/10/2021 02:44:00 PM EDT - 02/10/2021 02:44:00 PM EDT [facility] Outpatient Attender: Alyssa ABURTOCConsultant: PARTH VICTORIA MD 12/13/2020 02:07:00 PM EST - 12/13/2020 02:07:00 PM EST [facility] Immunizations Vaccine Date Status Description Data Source(s) COVID-19 VACCINE Pfizer 02/16/2021 12:00:00 AM EDT completed [facility] Complete: YESThis Data wa s Submitted to [facility] Via [employer]. COVID-19 VACCINE Pfizer 01/26/2021 12:00:00 AM EST completed [facility] Vaccine Series Complete: NOThis Data was Submitted to [facility] Via [employer]. Medications Medication Brand Name Start Date Product Form Dose Route Admi nistrative Instructions Pharmacy Instructions Status Indications Reaction Description Data Source(s) 60 ACTUAT Albuterol 0.09 MG/ACTUAT Metered Dose Inhaler Albu terol Sulfate HFA 10/22/2021 12:00:00 AM EST RESPIRATORY active [facility] ([facility]) Amoxicillin 500 MG / Clavulanate 125 MG Oral Tablet Am oxicillin/Clavulanate Potassium 10/22/2021 12:00:00 AM EST ORAL active [facility] ([facility]) pantoprazole 40 MG Delayed Release Oral [...] 10/07/2021 12:00:00 AM EST ORAL active [facility] ([facility]) 25 mg 08/11/2021 12:00:00 AM EDT tablet [...] TABLET BY MOUTH EVERY DAY SOLD: 09/12/2021 [employer] pantoprazole 40 MG Delayed Release Oral Tablet PANTOPRAZOLE SODIUM 04/11/2021 12:00:00 AM EDT tablet,delayed release (DR/EC) 30 T ROJAS ONE TABLET BY MOUTH EVERY DAY TAKE ONE TABLET BY MOUTH EVERY DAY SOLD: 07/14/2021 [employer] pantoprazole 40 MG Delayed Release Oral Tablet PANTOPRAZOLE SODIUM 04/11/2021 12:00:00 AM EDT tablet,delayed release (DR/EC) 90 T ROJAS ONE TABLET BY MOUTH EVERY DAY TAKE ONE TABLET BY MOUTH EVERY DAY SOLD: 04/15/2021 [employer] pantoprazole 40 MG Delayed Release Oral Tablet [...] CAPSULE BY MOUTH EVERY DAY SOLD: 02/12/2021 [employer] Atenolol 25 MG Oral Tablet ATENOLOL 02/08/2021 [...] 12/13/2020 12:00:00 AM EST ORAL active [facility] ([facility]) 40 mg 08/14/2020 12:00:00 AM EDT tablet [...] type / Coverage type Policy ID Covered republican ID Covered republican's relationship to sykes Policy Sykes Plan Information [facility] [employer] [id number] SP [id number] [facility] COMM[employer] PLAN [id number] 18 [id number] [facility] AMERICHOICE XIX -[facility] [id number] 18 [id number] [facility] PL[facility] XIX [id number] 18 [id number] [facility]AN [employer] [facility] [employer] [id number] SP [id number] [facility] BLUE SHIELD-O/P [id number] 18 [id number] Problems, Conditions, and Diagnoses Code Display Name Description Problem Type Effective Dates Data Source(s) [id number] Pain in right shoulder Pain in right shoulder Diagnosi s 10/07/2021 02:57:00 PM [facility] I889 Nonspecific lymphadenitis, unspecified N onspecific lymphadenitis, unspecified Diagnosis 10/07/2021 02:57:00 PM [facility] R932 Abnormal findings on diagnostic imaging of liver and biliary tract Abnormal findings on diagnostic imaging of liver and biliary tract Diagnosis 10/05/2021 12:35:00 PM [facility] J90 Pleural effusion, not elsewhere classifi ed Pleural effusion, not elsewhere classified Diagnosis 10/05/2021 12:35:00 PM [facility] J849 Interstitial pulmonary disease, unspecif ied Interstitial pulmonary disease, unspecified Diagnosis 10/05/2021 12:35:00 PM [facility] M899 Disorder of bone, unspecified Disorder of bone, unspec ified Diagnosis 10/05/2021 12:35:00 PM [facility] E079 Disorder of thyroid, unspecified Disorder of thy roid, unspecified Diagnosis 10/05/2021 12:35:00 PM [facility] R221 Localized swelling, mass and lump, neck Localized swelling, mass and lump, neck Diagnosis 10/05/2021 12:35:00 PM [facility] R634 Abnormal weight loss Abnormal weight loss Diagnosis 10/05/2021 12:35:00 PM [facility] Z5321 Procedure and treatment not carried out due to patient leaving prior to being seen by health care provider Procedure and treatment not carried out due to patient leaving prior to being seen by health care provider Diagnosis 09/26/2021 10:57:00 AM [facility] R519 Headache, unspecified Headache, unspecified Diagnosis 08/29/2021 10:54:00 AM T [facility] K219 Gastro-esophageal reflux disease without esophagitis Gastro-esophageal reflux disease without esophagitis Diagnosis 08/29/2021 10:54:00 AM ED T [facility] H23083 Nicotine dependence, cigarettes, uncompl icated Nicotine dependence, cigarettes, uncomplicated Diagnosis 08/29/2021 10:54:00 AM EDT [facility] M7910 Myalgia, unspecified site Myalgia, unspecified site Di agnosis 08/29/2021 10:54:00 AM T [facility] Y[address] or not applicable Unspecified place or not applicable Diagnosis 08/06/2021 06:12:00 PM EDT [facility] V702PGF Overexertion from prolonged static or awkward postures, initial encounter Overexertion from prolonged static or aw kward postures, initial encounter Diagnosis 08/06/2021 06:12:00 PM EDT [facility] [id number] Unspecified injury of left shoulder and upper arm, initial encounter Unspecified injury of left shoulder and upper arm, initial encounter Diagnosis 08/06/2021 06:12:00 PM EDT [facility] S12821 Pain in unspecified shoulder Pain in unspecified shoul dori Diagnosis 12/13/2020 02:07:00 PM [facility] N393 Stress incontinence (female) (male) Stress incon tinence (female) (male) Diagnosis 12/13/2020 02:07:00 PM [facility] G4700 Insomnia, unspecified Insomnia, unspecified Diagnosis 12/13/2020 02:07:00 PM [facility] E785 Hyperlipidemia, unspecified Hyperlipidemia, unspecifie d Diagnosis 12/13/2020 02:07:00 PM [facility] I10 Essential (primary) hypertension Essential (primary) h ypertension Diagnosis 12/13/2020 02:07:00 PM [facility] F419 Anxiety disorder, unspecified Anxiety disorder, unspec ified Diagnosis 12/13/2020 02:07:00 PM [facility] F41.9 Anxiety state Anxiety state Problem 12/13/2020 12:00:00 AM EST [facility] ([facility]) I10 Essential hypertension Essential hypertension Problem 12/13/2020 12:00:00 AM EST [facility] ([facility]) K21.9 Gastroesophageal reflux disease Gastroesophageal reflu x disease Problem 12/13/2020 12:00:00 AM EST [facility] ([facility]) Surgeries/Procedures Procedure Description Date Indications Data Source(s) Pulse Oximetry Single Determination 10/22/2021 12:00:0 0 AM EST [facility] ([facility]) OFFICE OUTPATIENT VISIT 10 MINUTES 10/22/2021 12:00:00 AM EST [facility] ([facility]) OFFICE OUTPATIENT VISIT 25 MINUTES 10/07/2021 12:00:00 AM EST [facility] ([facility]) OFFICE OUTPATIENT VISIT 25 MINUTES 09/22/2021 12:00:00 AM EDT [facility] ([facility]) OFFICE OUTPATIENT VISIT 25 MINUTES 08/29/2021 12:00:00 AM EDT [facility] ([facility]) OFFICE OUTPATIENT VISIT 15 MINUTES 05/17/2021 12:00:00 AM EDT [facility] ([facility]) OFFICE OUTPATIENT VISIT 15 MINUTES 02/10/2021 12:00:00 AM EDT [facility] ([facility]) Brief Emotional/Behav Assessment W/ Scoring Doc Per Standard Inst 12/13/2020 12:00:00 AM EST [facility] ([facility]) Admin Patient Focused Health Risk Assessment Instrument 12/13/2020 12:00:00 AM EST [facility] ([facility]) OFFICE OUTPATIENT NEW 45 MINUTES 12/13/2020 12:00:00 A M EST [facility] ([facility]) Results ID Date Data Source [id number] 10/05/2021 08:35:00 PM EST [facility] [address] [place] [address] PHONE: [phone] FAX: [phone] Name .................. : YOLANDE Peoples Acct Number.................. : [id number] ROOM. ................. : MR Number ................... : [id number] Stay type ............. : O/P Discharge Date......... ... : 10/05/21 Admit Date ....... .. : 10/05/21 Admit Phys .................... : KRISS Jewell Date of ....... : 1965 Family Phys ................... : ANAIS Phone .................. : [phone] Age ................................ : 56 Film# .................. .:[id number] Sex ................................. : F Unsigned transcriptions are preliminary reports and do not represent a medical or legal document CT ABD & PELVIS W/ IV ONLY [id number] COMPLETE:10/05/21 16:53 GARY 17150 Reason for Exam: ABN WT LOSS CT [...] mm. No hydronephrosis. Page 1 of 3 [facility] [address] [place] [address] PHONE: [phone] FAX: [phone] Name .................. : YOLANDE Peoples Acct Number.................. : [id number] ROOM. ................. : MR Number ................... : [id number] Stay type ............. : O/P Discharge Date.... ..... ... : 10/05/21 Admit Date ......... : 10/05/21 Admit Phys .................... : KRISS Jewell Date of ....... : 1965 Family Phys ................... : [employer] Phone .................. : [phone] Age ................................ : 56 Film# .................. .:[id number] Sex ................................. : F Unsigned transcriptions are preliminary reports and do not represent a medical or legal document CT ABD & PELVIS W/ IV ONLY [id number] COMPLETE:10/05/21 16:53 GARY 27949 Reason for Exam: ABN WT LOSS OTHER [...] Dori via fax Page 2 of 3 [facility] [address] [place] [address] PHONE: [phone] FAX: [phone] Name .................. : YOLANDE Peoples Acct Number.................. : [id number] ROOM. ................. : MR Number ................... : [id number] Stay type ............. : O/P Discharge Date......... ... : 10/05/21 Admit Date ......... : 10/05/21 Admit Phys .................... : KRISS Jewell Date of ....... : 1965 Family Phys ................... : ANAIS Phone .................. : [phone] Age ................................ : 56 Film# .................. .:[id number] Sex ................................. : F Unsigned transcriptions are preliminary reports and do not represent a medical or legal document CT ABD & PELVIS W/ IV ONLY [id number] COMPLETE:10/05/21 16:53 GARY 22143 Reason for Exam: ABN WT LOSS Copy for: 710 MED REC Page 3 of 3 Name Value Range Interpretation Code Description Data Lu rce(s) Supporting Document(s) ID Date Data Source [id number] 10/05/2021 07:24:00 PM EST [facility] [address] [place] [address] PHONE: [phone] FAX: [phone] Name .................. : YOLANDE KUMAR Richelle Acct Number.................. : [id number] ROOM. ................. : MR Number ................... : [id number] Stay type ............. : O/P Discharge Date......... ... : 10/05/21 Admit Date ....... .. : 10/05/21 Admit Phys .................... : KRISS Jewell Date of ....... : 1965 Family Phys ................... : ANAIS Phone .................. : [phone] Age ................................ : 56 Film# .................. .:[id number] Sex ................................. : F Unsigned transcriptions are preliminary reports and do not represent a medical or legal document SOFT TISSUE HEAD/NECK [id number] COMPLETE:10/05/21 13:25 KNB 86445 Reason for Exam: LUMP ABOVE R COLLAR [...] for: KRISS Meadows via fax Copy for: [address] [place] [address] Page 1 of 1 Name Value Range Interpretation Code Description Data Lu rce(s) Supporting Document(s) ID Date Data Source [id number] 08/29/2021 11:35:00 AM EDT [facility] Name Value Range Interpretation Code Description Data Lu rce(s) Supporting Document(s) Nuclear Ab [Titer] in Serum by Immunofluorescence Laboratory test res ult [facility]) Is patient fasting? N Rheumatoid factor [Units/volume] in Serum or Plasma Laboratory t est result 0-14 [facility] ([facility]) Is patient fasting? N Cyclic citrullinated peptide IgG Ab [Units/volume] in Serum or Plasma 6 units 0-19 [facility] ([facility]) Is patient fasting? N C reactive protein [Mass/volume] in Serum or Plasma by High sensitivity method 35.38 mg/L 1.00-3.00 Above high normal [facility] ([facility]) Is patient fasting? N ID Date Data Source [id number] 08/29/2021 11:35:00 AM EDT [facility] ([facility]) Name Value Range Interpretation Code Description Data Lu rce(s) Supporting Document(s) Sed Rate 40 mm/hr 0-30 Above high normal [facility] ([facility]) Is patient fasting? N Sed Rate Reenter 40 [facility] ([facility]) Is patient fasting? N ID Date Data Source [id number] 08/29/2021 11:35:00 AM EDT [facility] ([facility]) Name Value Range Interpretation Code Description Data Lu rce(s) Supporting Document(s) Erythrocyte sedimentation rate by Westergren method Laboratory test result [facility] ([facility]) C reactive protein [Mass/volume] in Serum or Plasma Laboratory test result [facility] ([facility]) Rheumatoid factor [Units/volume] in Serum or Plasma Laboratory test result [facility] ([facility]) Nuclear Ab [Titer] in Serum by Immunofluorescence Laboratory test res ult [facility] ([facility]) Cyclic citrullinated peptide IgG Ab [Units/volume] in Serum or Plasma Laboratory test result [facility] Thyrotropin [Units/volume] in Serum or Plasma 2.53 uIU/mL 0.47-5.01 [facility] ([facility]) Is patient fasting? N ID Date Data Source [id number] 08/29/2021 11:35:00 AM EDT [facility] ([facility]) Name Value Range Interpretation Code Description Data Lu rce(s) Supporting Document(s) Calcidiol [Mass/volume] in Serum or Plasma 9 ng/mL [facility] ([facility]) Is patient fasting? N ID Date Data Source [id number] 08/29/2021 11:35:00 AM EDT [facility] ([facility]) Name Value Range Interpretation Code Description Data Lu rce(s) Supporting Document(s) Cve Panel Laboratory test result [facility] ([facility]) Is patient fasting? N Cholesterol 180 mg/dL 131-200 [facility] ([facility]) Is patient fasting? N Triglycerides 161 mg/dL 35-160 Above high normal [facility] ([facility]) Is patient fasting? N HDL 36 mg/dL 29-86 [facility] ([facility]) Is patient fasting? N Risk Factor 5.0 3.2-4.4 Above high normal [facility] ([facility]) Is patient fasting? N LDL 108 mg/dL 65-175 [facility] ([facility]) Is patient fasting? N LDL/HDL 3.00 1.47-3.22 [facility] ([facility]) Is patient fasting? N ID Date Data Source [id number] 08/29/2021 11:35:00 AM EDT [facility] ([facility]) Name Value Range Interpretation Code Description Data Lu rce(s) Supporting Document(s) Hemoglobin A1c/Hemoglobin.total in Blood 5.9 % 4.4-6.1 [facility] ([facility]) Is patient fasting? N ID Date Data Source [id number] 08/29/2021 11:35:00 AM EDT [facility] ([facility]) Name Value Range Interpretation Code Description Data Lu rce(s) Supporting Document(s) Comprehensive Metabo Laboratory test result [facility] ([facility]) Is patient fasting? N Sodium 139 meq/L 134-153 [facility] ([facility]) Is patient fasting? N Potassium 4.5 meq/L 3.6-5.0 [facility] ([facility]) Is patient fasting? N Chloride 105 meq/L 98-107 [facility] ([facility]) Is patient fasting? N Co2 22 meq/L 22-30 [facility] ([facility]) Is patient fasting? N Glucose 110 mg/dL 70-99 Above high normal [facility] ([facility]) Is patient fasting? N BUN 19 mg/dL 7-21 [facility] ([facility]) Is patient fasting? N Creatinine 0.6 mg/dL 0.7-1.5 Below low normal [facility] ( [facility]) Is patient fasting? N Total Protein 7.6 g/dL 6.3-8.2 [facility] ([facility]) Is patient fasting? N BUN/Creat 32 8-27 Above high normal [facility] ([facility]) Is patient fasting? N Albumin 4.5 g/dL 3.9-5.0 [facility] ([facility]) Is patient fasting? N A/G Ratio 1.5 0.8-2.0 [facility] ([facility]) Is patient fasting? N Globulin 3.1 GM/DL 2.4-3.2 [facility] ([facility]) Is patient fasting? N Calcium 9.7 mg/dL 8.4-10.2 [facility] ([facility]) Is patient fasting? N Total Bili Laboratory test result 0.2-1.3 [facility] ([facility]) Is patient fasting? N Alkaline Phos 281 U/L 38-126 Above high normal [facility] ([facility]) Is patient fasting? N Sgot/Ast 13 U/L 5-40 [facility] ([facility]) Is patient fasting? N SGPT/Alt 7 U/L 7-56 [facility] ([facility]) Is patient fasting? N Anion Gap 12.0 mmol/L 8.0-16.0 [facility] ([facility]) Is patient fasting? N Age 56 yrs [facility] ([facility]) Is patient fasting? N Non-Aa GFR Laboratory test result [facility] ([facility]) Is patient fasting? N Afr Amer GFR Laboratory test result [facility] ([facility]) Is patient fasting? N ID Date Data Source [id number] 08/29/2021 11:35:00 AM EDT [facility] ([facility]) Name Value Range Interpretation Code Description Data Lu rce(s) Supporting Document(s) CBC W/Automated Diff Laboratory test result [facility] ([facility]) Is patient fasting? N WBC 14.5 10^3/uL 4.2-11.0 Above high normal [facility] T ([facility]) Is patient fasting? N Hemoglobin 14.1 g/dL 12.0-16.0 [facility] ([facility]) Is patient fasting? N RBC 4.82 10^6/uL 4.20-5.40 [facility] ([facility]) Is patient fasting? N Hematocrit 43.5 % 37.0-47.0 [facility] ([facility]) Is patient fasting? N MCH 29.3 pg 27.0-34.0 [facility] ([facility]) Is patient fasting? N MCV 90.2 fL 81.0-101 [facility] ([facility]) Is patient fasting? N MCHC 32.4 g/dL 31.0-36.0 [facility] ([facility]) Is patient fasting? N RDW 14.6 % 11.5-14.5 Above high normal [facility] ([facility]) Is patient fasting? N MPV 9.5 fL 7.4-10.4 [facility] ([facility]) Is patient fasting? N Platelets 496 10^3/uL 150-450 Above high normal [facility] ([facility]) Is patient fasting? N Neut 68.0 % 37.0-80.0 [facility] ([facility]) Is patient fasting? N Lymph 23.7 % 25.0-40.0 Below low normal [facility] ( [facility]) Is patient fasting? N [place] 5.9 % 3.0-8.0 [facility] ([facility]) Is patient fasting? N Eos 1.2 % 0.0-7.0 [facility] ([facility]) Is patient fasting? N Baso 0.6 % 0.0-2.5 [facility] ([facility]) Is patient fasting? N %Ig 0.6 % 0.0-0.0 Above high normal [facility] ([facility]) Is patient fasting? N %NRBC 0.0 % 0.0-0.0 [facility] ([facility]) Is patient fasting? N #Neut 9.85 10^3/uL 2.00-6.90 Above high normal [facility] T ([facility]) Is patient fasting? N #[place] 0.86 10^3/uL 0.00-0.90 [facility] ([facility]) Is patient fasting? N #Lymph 3.43 10^3/uL 0.60-3.40 Above high normal [facility] ([facility]) Is patient fasting? N #Eos 0.18 10^3/uL 0.00-0.70 [facility] ([facility]) Is patient fasting? N #Ig 0.08 10^3/uL 0.00-0.10 [facility] ([facility]) Is patient fasting? N #Baso 0.09 10^3/uL 0.00-0.20 [facility] ([facility]) Is patient fasting? N #NRBC 0.00 10^3/uL 0.00-0.00 [facility] ([facility]) Is patient fasting? N Manual Diff Laboratory test result [facility] ([facility]) Is patient fasting? N RBC Morph Laboratory test result [facility] ([facility]) Is patient fasting? N ID Date Data Source [id number] 09/01/2021 06:33:00 AM EDT [facility] Name Value Range Interpretation Code Description Data Lu rce(s) Supporting Document(s) Cyclic citrullinated peptide IgA+IgG Ab [Units/volume] in Serum or Plasma by Immunoassay 6 units 0-19 [facility] Negative <20 Weak positive 20 - 39 Moderate positive 40 - 59 Strong positive >59 ID Date Data Source [id number] 08/31/2021 08:16:00 PM EDT [facility] Name Value Range Interpretation Code Description Data Lu rce(s) Supporting Document(s) Nuclear Ab [Titer] in Serum by Immunofluorescence Negative [facility] Negative <1:80 Borderline 1:80 Positive >1:80ICAP nomenclature: AC-0For more information about Hep-2 cell patterns useANApatterns.org, the official website for the InternationalConsensus on Antinuclear Antibody (MAC) Patterns (ICAP). ID Date Data Source [id number] 08/30/2021 06:59:00 AM EDT [facility] Name Value Range Interpretation Code Description Data Lu rce(s) Supporting Document(s) Calcidiol [Moles/volume] in Serum or Plasma 9 NG/ML [facility] VITAMIN-D(2 5HYDROXY) Deficiency: <=20 ng/ml Insufficiency: 21-29 ng/ml Preferred level: => 30 ng/ml ID Date Data Source [id number] 08/29/2021 07:13:00 PM EDT [facility] Name Value Range Interpretation Code Description Data Lu rce(s) Supporting Document(s) Erythrocyte sedimentation rate by Westergren method 40 mm/hr 0 - 30 H [facility] SED RATE REENTER 40 [facility] ID Date Data Source [id number] 08/29/2021 07:05:00 PM EDT [facility] Name Value Range Interpretation Code Description Data Lu rce(s) Supporting Document(s) C reactive protein [Mass/volume] in Serum or Plasma by High sensitivity method 35.38 MG/L 1.00 - 3.00 H [facility] CDC/S HS-CRP CUT-OFF: RELATIVE RISK: <1.0 mg/L Low 1.0 - 3.0 mg/L Average >3.0 mg/L High Optimally, the average of HS-CRP results repeated two weeks apart should be used for risk assessment. ID Date Data Source [id number] 08/29/2021 06:32:00 PM EDT [facility] Name Value Range Interpretation Code Description Data Lu rce(s) Supporting Document(s) Thyrotropin [Units/volume] in Serum or Plasma by Detec tion limit <= 0.05 mIU/L 2.53 uIU/mL 0.47 - 5.01 [facility] ID Date Data Source [id number] 08/29/2021 06:29:00 PM EDT [facility] Name Value Range Interpretation Code Description Data Lu rce(s) Supporting Document(s) Hemoglobin A1c/Hemoglobin.total in Blood 5.9 % 4.4 - 6.1 [facility] ID Date Data Source [id number] 08/29/2021 06:21:00 PM EDT [facility] Name Value Range Interpretation Code Description Data Lu rce(s) Supporting Document(s) CBC W/AUTOMATED DIFF [facility] COMPLETE BLOOD COUNT Leukocytes [#/volume] in Blood by Automated count 14.5 10^3/uL 4.2 - 11.0 H [facility] Erythrocytes [#/volume] in Blood by Automated count 4.82 10^6/uL 4. 20 - 5.40 [facility] Hemoglobin [Mass/volume] in Blood 14.1 g/dL 12.0 - 16.0 [facility] Hematocrit [Volume Fraction] of Blood by Automated count 43.5 % 3 7.0 - 47.0 [facility] Erythrocyte mean corpuscular volume [Entitic volume] by Auto mated count 90.2 fL 81.0 - 101 [facility] Erythrocyte mean corpuscular hemoglobin [Entitic mass] by Automated count 29.3 pg 27.0 - 34.0 [facility] Erythrocyte mean corpuscular hemoglobin concentration [Mass/volume] by Automated count 32.4 g/dL 31.0 - 36.0 [facility] Erythrocyte distribution width [Ratio] by Automated count 14.6 % 11.5 - 14.5 H [facility] Platelets [#/volume] in Blood by Automated count 496 10^3/uL 150 - 45 0 H [facility] Platelet mean volume [Entitic volume] in Blood by Automated count 9.5 fL 7.4 - 10.4 [facility] Neutrophils/100 leukocytes in Blood by Automated count 68.0 % 37. 0 - 80.0 [facility] Lymphocytes/100 leukocytes in Blood by Manual count 23.7 % 25.0 - 40.0 L [facility] Monocytes/100 leukocytes in Blood by Automated count 5.9 % 3.0 - 8.0 [facility] Eosinophils/100 leukocytes in Blood by Automated count 1.2 % 0.0 - 7.0 [facility] Basophils/100 leukocytes in Blood by Automated count 0.6 % 0.0 - 2.5 [facility] %IG 0.6 % 0.0 - 0.0 [facility] 0.0 % 0.0 - 0.0 [facility] Neutrophils [#/volume] in Blood by Automated count 9.85 10^3/uL 2.00 - 6.90 H [facility] Lymphocytes [#/volume] in Blood by Automated count 3.43 10^3/uL 0.60 - 3.40 H [facility] Monocytes [#/volume] in Blood by Automated count 0.86 10^3/uL 0.00 - 0.90 [facility] Eosinophils [#/volume] in Blood by Automated count 0.18 10^3/uL 0.00 - 0.70 [facility] Basophils [#/volume] in Blood by Automated count 0.09 10^3/uL 0.00 - 0.20 [facility] #IG 0.08 10^3/uL 0.00 - 0.10 [facility] #NRBC 0.00 10^3/uL 0.00 - 0.00 [facility] ospital MANUAL DIFF NOT INDICATED [facility] RBC MORPH NOT INDICATED [facility] spital ID Date Data Source [id number] 08/29/2021 06:18:00 PM EDT [facility] Name Value Range Interpretation Code Description Data Lu rce(s) Supporting Document(s) RA QUANT <10 IU/mL 0 - 14 [facility] ID Date Data Source [id number] 08/29/2021 06:18:00 PM EDT [facility] Name Value Range Interpretation Code Description Data Lu rce(s) Supporting Document(s) CVE PANEL [facility] LIPID PANEL Cholesterol [Mass/volume] in Serum or Plasma 180 MG/DL 131 - 200 [facility] Deprecated Triglyceride [Mass/volume] in Serum or Plasma 161 MG/DL 3 5 - 160 H [facility] HDL 36 MG/DL 29 - 86 [facility] Cholesterol in LDL [Mass/volume] in Serum or Plasma by Direc t assay 108 mg/dL 65 - 175 [facility] Cholesterol.total/Cholesterol in HDL [Mass Ratio] in Serum o r Plasma 5.0 3.2 - 4.4 H [facility] LDL/HDL 3.00 1.47 - 3.22 [facility] ital CVE RISK CHOL/HDL LDL/HDLMEN: 1/2 AVERAGE 3.43 1.00 AVERAGE 4.97 3.55 2X AVERAGE 9.55 6.25 3X AVERAGE 23.99 7.99WOMEN: 1/2 AVERAGE 3.27 1.47 AVERAGE 4.44 3.22 2X AVERAGE 7.05 5.03 3X AVERAGE 11.04 6.14 ID Date Data Source [id number] 08/29/2021 06:18:00 PM EDT [facility] Name Value Range Interpretation Code Description Data Lu rce(s) Supporting Document(s) COMPREHENSIVE METABOLIC PANEL [facility] COMPREHENSIVE METABOLIC PANEL Sodium [Moles/volume] in Serum or Plasma 139 mEq/L 134 - 153 [facility] Potassium [Moles/volume] in Serum or Plasma 4.5 mEq/L 3.6 - 5.0 [facility] Chloride [Moles/volume] in Serum or Plasma 105 mEq/L 98 - 107 [facility] Carbon dioxide, total [Moles/volume] in Serum or Plasma 22 MEQ/L 22 - 30 [facility] Glucose [Mass/volume] in Serum or Plasma 110 MG/DL 70 - 99 H [facility] BUN 19 MG/DL 7 - 21 [facility] al Creatinine [Mass/volume] in Serum or Plasma 0.6 MG/DL 0.7 - 1.5 L [facility] BUN/CREAT 32 8 - 27 H [facility] al Protein [Mass/volume] in Serum or Plasma 7.6 G/DL 6.3 - 8.2 [facility] Albumin [Mass/volume] in Serum or Plasma 4.5 G/DL 3.9 - 5.0 [facility] Globulin [Mass/volume] in Serum by calculation 3.1 GM/DL 2.4 - 3.2 [facility] A/G RATIO 1.5 0.8 - 2.0 [facility] Calcium [Mass/volume] in Serum or Plasma 9.7 MG/DL 8.4 - 10.2 [facility] Bilirubin.total [Mass/volume] in Serum or Plasma <0.7 MG/DL 0.2 - 1.3 [facility] Alkaline phosphatase [Enzymatic activity/volume] in Serum or Plasma 281 U/L 38 - 126 H [facility] Aspartate aminotransferase [Enzymatic activity/volume] in Serum or Plasma 13 U/L 5 - 40 [facility] Alanine aminotransferase [Enzymatic activity/volume] in Seru m or Plasma 7 U/L 7 - 56 [facility] Anion gap 3 in Serum or Plasma 12.0 mmol/L 8.0 - 16.0 [facility] AGE 56 yrs [facility] NON-AA GFR >60 mL/min [facility] AFR AMER GFR >60 mL/min [facility] spital Male GFR In terprentation 20-49 [...] >32 mL/min Normal ID Date Data Source [id number] 08/06/2021 06:12:00 PM EDT [facility] 1 Medication Reconciliation Report [facility] Emergency Department [address] [place] [address] Phone #: ext- [phone] 08/06/2021 17:42 Patient: [...] rce(s) Supporting Document(s) ID Date Data Source [id number] 08/06/2021 06:12:00 PM EDT [facility] 1 Medication Administration Record [facility] Emergency Department [address] [place] [address] Phone #: ext- [phone] 08/06/2021 17:42 Patient: STACY LANIER Sex: F : 1965 Age: 56yWeight: 92.5 kgHeight/Length: 67 inBMI: 32ALLERGIES: No Known Drug AllergyDate/Time Medication Administered Medication Ordered Name Value Range Interpretation Code Description Data Lu rce(s) Supporting Document(s) ID Date Data Source [id number] 08/06/2021 06:12:00 PM EDT [facility] 1 Clinical Report - Nurses [facility] Emergency Department [address] [place] [address] Phone #: ext [phone] 08/06/2021 17:42 Patient: STACY LANIER Sex: F : 1965 Age: 56yTRIAGEArrived by private vehicle. Historian: patient.Acuity: LEVEL 4.Chief Complaint: INJURY TO LEFT SHOULDER.Alert. No acute distress.Occurred 11:30 08/06/2021. ( PT reports having a smokers cough and while coughing felt a poppingsensation in her left shoulder and pain that radiated to her left hand. She denies any chest pain or SOB.).Treatment [employer]:Took ibuprofen.SEPSIS SCREEN: SIRS SCREEN NEGATIVE. SEPSIS SCREEN [...] R.N.ADDITIONAL SURGERIES: 2 Clinical Report - Nurses [facility] Emergency Department [address] [place] [address] Phone #: ext- [phone] 08/06/2021 17:42 Patient: STACY LANIER [facility]#: [id number] Sex: F : 1965 Age: 56y . [...] blood pressure 150 mm[Hg] 150 mm[Hg] M [facility] ([facility]) Diastolic blood pressure 93 mm[Hg] 93 mm[Hg] [facility] Heart rate 85 /min 85 /min [facility] Body temperature 97.9 [degF] 97.9 [degF] [facility] ([facility]) Respiratory rate 18 /min 18 /min [facility] ( [facility]) Oxygen saturation in Arterial blood by Pulse oximetry 94 % 94 % [facility] ([facility]) Systolic blood pressure 126 mm[Hg] 126 mm[Hg] [facility] ([facility]) Diastolic blood pressure 78 mm[Hg] 78 mm[Hg] [facility] Heart rate 85 /min 85 /min [facility] ([facility]) Body temperature 96.0 [degF] 96.0 [degF] [facility] ([facility]) Respiratory rate 16 /min 16 /min [facility] ( [facility]) Oxygen saturation in Arterial blood by Pulse oximetry 98 % 98 % [facility] ([facility]) Body weight 185.00 [lb_av] 185.00 [lb_av] [facility] ([facility]) Body weight 83.[address] [facility] ([facility]) Heart rate 84 /min 84 /min [facility] ([facility]) Oxygen saturation in Arterial blood by Pulse oximetry 93 % 93 % [facility] ([facility]) Systolic blood pressure 130 mm[Hg] 130 mm[Hg] M [facility] ([facility]) Diastolic blood pressure 82 mm[Hg] 82 mm[Hg] [facility] ([facility]) Body temperature 96.0 [degF] 96.0 [degF] [facility] ([facility]) Respiratory rate 16 /min 16 /min [facility] ( [facility]) Body weight 188.50 [lb_av] 188.50 [lb_av] [facility] ([facility]) Body weight 85.504 kg 85.504 kg [facility] ([facility]) Body height 67 [in_i] 67 [in_i] [facility] ([facility]) 5'7" Body mass index (BMI) [Ratio] 29.5 kg/m2 29.5 k g/m2 [facility] ([facility]) Body surface area Derived from formula 1.97 m2 1.97 m2 [facility] Body weight 86.184 kg 86.184 kg [facility] ([facility]) Body height 67 [in_i] 67 [in_i] [facility] ([facility]) 5'7" Body mass index (BMI) [Ratio] 29.8 kg/m2 29.8 k g/m2 [facility] ([facility]) Heart rate 86 /min 86 /min [facility] ([facility]) Diastolic blood pressure 68 mm[Hg] 68 mm[Hg] [facility] ([facility]) She has not had her meds yet today remin ded to t Systolic blood pressure 122 mm[Hg] 122 mm[Hg] [facility] ([facility]) She has not had her meds yet today remin ded to t Body temperature 97.7 [degF] 97.7 [degF] [facility] ([facility]) Respiratory rate 18 /min 18 /min [facility] ( [facility]) Oxygen saturation in Arterial blood by Pulse oximetry 97 % 97 % [facility] ([facility]) Body weight 190.00 [lb_av] 190.00 [lb_av] [facility] ([facility]) wgt loss noted Body surface area Derived from formula 1.98 m2 1.98 m2 [facility] ([facility]) Body height 67 [in_i] 67 [in_i] [facility] ([facility]) 5'7" Body mass index (BMI) [Ratio] 32.0 kg/m2 32.0 k g/m2 [facility] ([facility]) Body surface area Derived from formula 2.04 m2 2.04 m2 [facility] ([facility]) Body temperature 96.0 [degF] 96.0 [degF] [facility] Body weight 92.704 kg 92.704 kg [facility] ([facility]) Systolic blood pressure 136 mm[Hg] 136 mm[Hg] [facility] ([facility]) Diastolic blood pressure 84 mm[Hg] 84 mm[Hg] [facility] ([facility]) Heart rate 78 /min 78 /min [facility] ([facility]) Respiratory rate 16 /min 16 /min [facility] ( [facility]) Oxygen saturation in Arterial blood by Pulse oximetry 96 % 96 % [facility]) Body weight 204.38 [lb_av] 204.38 [lb_av] [facility] ([facility]) Systolic blood pressure 146 mm[Hg] 146 mm[Hg] [facility] ([facility]) Diastolic blood pressure 86 mm[Hg] 86 mm[Hg] [facility] ([facility]) Heart rate 87 /min 87 /min [facility] ([facility]) Body temperature 96.9 [degF] 96.9 [degF] [facility] ([facility]) Respiratory rate 18 /min 18 /min [facility] Oxygen saturation in Arterial blood by Pulse oximetry 98 % 98 % [facility] ([facility]) Body weight 203.25 [lb_av] 203.25 [lb_av] [facility] ([facility]) Body weight 92.194 kg 92.194 kg [facility] ([facility]) Body height 67 [in_i] 67 [in_i] [facility] ([facility]) 5'7" Body mass index (BMI) [Ratio] 31.8 kg/m2 31.8 k g/m2 [facility] ([facility]) Body surface area Derived from formula 2.[address] [facility] ([facility]) Systolic blood pressure 124 mm[Hg] 124 mm[Hg] [facility] ([facility]) Diastolic blood pressure 84 mm[Hg] 84 mm[Hg] [facility]) Heart rate 83 /min 83 /min [facility] ([facility]) Body temperature 97.2 [degF] 97.2 [degF] [facility] ([facility]) Respiratory rate 17 /min 17 /min [facility] ( [facility]) Oxygen saturation in Arterial blood by Pulse oximetry 97 % 97 % [facility] ([facility]) Body weight 203.38 [lb_av] 203.38 [lb_av] [facility] ([facility]) Body weight 92.[address] [facility] ([facility]) Body height 67 [in_i] 67 [in_i] [facility] ([facility]) 5'7" Body mass index (BMI) [Ratio] 31.8 kg/m2 31.8 k g/m2 [facility] ([facility]) Body surface area Derived from formula 2.[address] [facility] ([facility])
--- NOTE | 2021-10-22 22:46 | HPEPDOC ---
[facility] Medical History & Physical Date of Admission Oct 22, 2021 Date of Service: Oct 22, 2021 Attending Physician: CRYSTAL ROSENBERG MD History and Physical CHIEF COMPLAINT: Shortness of breath HISTORY OF PRESENT ILLNESS: Patient is a 56-year-old female who presents with a year-long history of progressively worsening shortness of breath. She did not notice this much at first but over the course of the past year feels that she has had progressively worsening exertional dyspnea. She also notes that s ometime in April 2021 she began having pain all over for no apparent reason. In early August she noticed a right lump above her clavicle and the side of her neck and went to her primary care office for evaluation. She was evaluated at [facility] family practice clinic on 08/29 where she was evaluated for a swollen lymph node above her right clavicle as well as abnormal weight loss. At that time her primary care provider ordered lab work, ultrasound of the neck, CT of the abdomen/pelvis, and a low-dose lung CT. She failed to have those done at that time due to multiple rescheduling incidents and presented for follow-up on 09/22/2021 with again instructions to undergo imaging for same. On 10/07/2021 she presented for follow-up and CT of her abdomen showed multiple liver and bone lesions. At that time a PET scan was ordered (insurance denied) and she was referred to [facility], but had to reschedule as she developed a cold on the date she was supposed to present. She was hopeful following this cold that her shortness of breath would improve but it is continued while all of her other upper respiratory symptoms have resolved and she feels that is even worsened to the point where she presented at the urging of her daughter to an urgent care where a chest x-ray showed a large pleural effusion and a postobstructive pneumonia as well as multiple lytic and blastic lesions in the liver and spine. The urgent care advised her to proceed to the emergency department for further evaluation. In the ED she was found to have an elevated white blood cell count of 18,000 and was found to have chest CT findings consistent with a postobstructive pneumonia as well as a small to moderate right-sided pleural effusion. Hospitalist service was contacted to admit the patient for work-up of her metastatic cancer as well as treatment of her postobstructive pneumonia. She was found to be COVID positive as the swab had yet to be collected at time of admission. Patient's daughter April was present on the telephone for this encounter. PAST MEDICAL HISTORY: Hypertension GERD Anxiety Hyperlipidemia PAST SURGICAL HISTORY: C/S Multiple D&Cs SOCIAL HISTORY: Began smoking at age 12, [id number] history. Quit drinking alcohol in 2004, at that time she states she only had a few beers a night. Denies marijuana, heroin, cocaine, PCP, or other illicit drug use. Lives at home with her son No history of travel outside the [facility], to the [facility] or [facility] 1 cat FAMILY HISTORY: She is adopted and does not know her biologic parents medical history ALLERGIES: Please see below. REVIEW OF SYSTEMS: Constitutional: Denies fevers, chills, night sweats, admits to unexpected weight loss of 33 pounds, poor appetite, denies hemoptysis HEENT: Denies head trauma, no visual changes or eye pain, denies nosebleeds or difficulty swallowing. Admits to headaches since April Cardiovascular: Denies chest pain, palpitations, or orthopnea. Respiratory: Admits to shortness of breath as above, admits to chronic productive cough of clear whitish sputum. Denies hemoptysis. Denies wheezing. GI: Denies nausea, vomiting, abdominal pain, hematemesis, diarrhea, or constipation, melena, hematochezia. : Denies pain with urination or frequency or hematuria Musculoskeletal: Denies joint pain or swelling Neuro/psych: Admits to all over body pain Skin: Denies skin rashes HOME MEDICATIONS: Please see below. PHYSICAL EXAMINATION: VITAL SIGNS: See below GENERAL APPEARANCE: Anxious appearing female who appears stated age sitting upright in bed speaking in complete sentences in mild distress HEENT: NC, AT, EOMI, no scleral icterus, moist mucous membranes, no pharyngeal erythema. NECK: No swelling or JVD. CHEST: Right-sided supraclavicular hard nodule with swelling above bilateral supraclavicular areas. CARDIOVASCULAR: RRR, normal S1-S2. No murmurs, gallops, rubs. LUNGS: Significantly diminished breath sounds bilaterally. E to a egophony throughout the lung avitia. Unable to appreciate crackles, wheezes, or rhonchi. Dullness to percussion right> left most pronounced in right lower lobe. ABDOMEN: Soft, nontender, nondistended, bowel sounds present. No hepatosplenomegaly. No masses or ecchymosis. No CVA tenderness. EXTREMITIES: No swelling or edema NEUROLOGICAL: No focal or sensory deficits. CN II-XII grossly intact. PSYCHIATRIC: Normal mood and affect LABORATORY DATA: See below. IMAGIN10/22/2021 CT angiogram chest: "IMPRESSION: 1. Right perihilar reticular infiltrates. 2. Noncalcified 7 mm pulmonary parenchymal nodule demonstrated in the right lower lobe. Finding may represent a metastatic focus. 3. Small to moderate right pleural effusion. No increased density to suggest a hemothorax. 4. Atelectasis and or tumor located in the right middle and upper lobes with occlusion of the upper lobe and middle lobe bronchi. 5. 4 x 6 mm spiculated nodule in the left upper lobe. Finding may represent scarring although neoplasm not excluded. 6. Mild centrilobular emphysematous changes in the left upper lobe. 7. Fragmented appearance of the distal right clavicle adjacent to the acromioclavicular joint. Finding may represent degenerative change versus a fracture. If clinically desired further evaluation with shoulder x-ray suggested. 8. Expansile destructive rib lesion left 1st rib consistent with a metastatic focus. 9. Pathologic fracture posterior left 9th rib. 10. Compression fracture secondary to lytic focus at T11. No retropulsion of bony elements. 11. There is no aortic dissection or aneurysm. 12. There are no pulmonary emboli. 13. Multiple hyperdense foci demonstrated in the liver measuring up to 2.3 cm in the medial aspect of the right lobe of the liver suspect for hepatic metastases. 14. Lytic destructive focus demonstrated in the manubrium with a nondisplaced manubrial fracture. " 10/22/2021 CT abdomen pelvis: "IMPRESSION: 1. Mixed lytic and blastic foci demonstrated in the right iliac bone, right and left sacrum and left supra-acetabular region. Left sacral lesion obliterates the 2nd sacral foramen. Findings consistent with metastatic disease. 2. There is a diffuse decrease in hepatic parenchymal density, consistent with steatosis. 3. Multiple hypodense lesions demonstrated in the liver measuring up to 2 cm in the medial aspect of the inferior portion of the right lobe consistent with metastatic disease. 4. Lobular contour of the liver particularly involving the capsular margin of the right lobe, finding which may be related to underlying metastatic disease although chronic liver disease of other etiology including cirrhosis not excluded. 5. The gallbladder is incompletely distended. This is most likely related to incomplete fasting. Clinical correlation to exclude gallbladder pathology suggested." MICROBIOLOGY: Please see below. Assessment/Plan: Patient is a 56-year-old female with a year long history of progressively worsening shortness of breath and 6-month history of bone pain, weight loss, and right-sided supraclavicular lymphadenopathy found to have met astatic disease secondary to possible lung cancer with compounding post- obstructive pneumonia. #. Post-obstructive pneumonia Despite positive SIRS criteria and a possible source with the pneumonia I do not feel patient meets clinical criteria for sepsis as there are no signs of end organ dysfunction. We will not be proceeding with 30 cc/KG fluid bolus. Not wholly convinced that this is a true post-obstructive pneumonia, as her elevated white blood cell count may be due to her diffuse metastatic disease, ordering procalcitonin, will continue Zosyn for the time being Blood cultures ordered #. COVID pneumonia -Patient states her URI symptoms (rhinorrhea, worsening cough began 2 weeks ago and she felt better after about a week, this may be positive as a result of that) -Patient on room air currently. Received 2 doses of pfizer vaccine, unsure when. -Will defer monoclonal Ab decision to day team. #. Rpleural effusion secondary to possible metastatic lung cancer We will consult pulmonology in the morning for evaluation of both the post- obstructive pneumonia as well as consideration of a thoracentesis. #. Lytic bone lesions and fractures Continue home gabapentin Pain management with tramadol #. Hypertension Continue home atenolol #. Anxiety Continue home Effexor #. Hyperlipidemia Continue home statin #. GERD Continue home pantoprazole DVT prophylaxis: Lovenox Disposition: Inpatient, pending clinical improvement Vital Signs Vital Signs Date Time Temp Pulse Resp B/P (MAP) Pulse Ox O2 Delivery O2 Flow Rate FiO2 10/22/21 22:27 105 18 168/81 10/22/21 18:29 97.8 94 Room Air Laboratory Data Labs 24H Laboratory Tests 2 10/22/21 19:37: Immature Granulocyte % (Auto) 0.7, Neutrophils (%) (Auto) 73.6H, Lymphocytes (%) (Auto) 18.0L, Monocytes (%) (Auto) 6.5, Eosinophils (%) (Auto) 0.6, Basophils (%) (Auto) 0.6, Neutrophils # (Auto) 13.4H, Lymphocytes # (Auto) 3.3, Monocytes # (Auto) 1.2H, Eosinophils # (Auto) 0.1, Basophils # (Auto) 0.1, Nucleated Red Blood Cells % (auto) 0.0, Magnesium Level 1.8, Total Bilirubin 0.4, Direct Bilirubin < 0.1, Aspartate Amino Transf (AST/SGOT) 40H, Alanine Aminotransferase (ALT/SGPT) 22, Alkaline Phosphatase 370H, Total Protein 7.7, Albumin 3.0L, Albumin/Globulin Ratio 0.6L 10/22/21 19:52: POC Glucose (Misc Panel) 127H, POC Sodium (Misc Panel) 138, POC Potassium (Misc Panel) 3.5, POC Chloride (Misc Panel) 103, POC Total CO2 (Misc Panel) 26.0, POC Blood Urea Nitrogen (Misc Panel 20, POC Ionized Calcium (Misc Panel) 4.6, POC Creatinine (Misc Panel) 0.9, POC Hematocrit (Misc Panel) 43.0 CBC/BMP Laboratory Tests 10/22/21 19:37 Home Medications Scheduled Atenolol (Atenolol) 25 Mg Tablet, 25 MG PO BID Gabapentin (Gabapentin) 100 Mg Capsule, 100 MG PO TID Pantoprazole Sodium (Pantoprazole Sodium) 40 Mg Tablet.dr, 40 MG PO DAILY Pravastatin Sodium (Pravastatin Sodium) 40 Mg Tablet, 40 MG PO QHS Venlafaxine HCl (Venlafaxine HCl ER) 150 Mg Cap.er.24h, 150 MG PO QHS Scheduled PRN Hydroxyzine HCl (Hydroxyzine HCl) 50 Mg Tablet, 100 MG PO QHS PRN for ANXIETY Allergies Coded Allergies: tetracycline (Verified Allergy, Unknown, 10/22/21) GME ATTESTATION GME ATTESTATION My faculty preceptor for this patient encounter was physically present during the encounter and was fully available. All aspects of the patient interview, examination, medical decision making process, and medical care plan development were reviewed and approved by the faculty preceptor. The faculty preceptor is aware and concurs with the plan as stated in the body of this note and will attest to such by his/her cosignature. ATTENDING NOTE I, A Yousef, have independently examined this patient and performed my own physical exam, as well as reviewed the documentation and addend when necessary. I have discussed in detail with the resident / student the findings and plan of treatment as documented by the resident / student. I agree with their findings and treatment plan except for any changes as outlined below. Imaging is highly suspicious metastatic cancer process, possible to lung, liver, bone. Will need complete workup. AM team can discuss with oncology inpatient vs outpatient workup. GENA LAL DO Oct 22, 2021 22:46 CRYSTAL ROSENBERG MD Oct 23, 2021 05:01
[2021-10-22] MEDS ORDERED: LORazepam 1 MG TAB PO PRN (23:35)
[2021-10-22] MEDS ORDERED: RAMELTEON 8 MG TAB (ROZEREM) PO PRN (23:35)
[2021-10-22 23:52] LABS: RSV AMPLIFICATION NEGATIVE (NEGATIVE)
[2021-10-23] VITALS (10 sets, daily range): BP systolic 133–157; BP diastolic 64–93; O2SAT 88–95
[2021-10-23] MEDS: atenoloL 25 MG TAB PO SCH ×3 (01:29→22:08)
[2021-10-23] MEDS: PRAVASTATIN 20 MG TAB PO SCH ×2 (01:29→22:08)
[2021-10-23] MEDS: VENLAFAXINE **XR** 75MG CAPSULE PO SCH ×2 (01:29→22:07)
[2021-10-23] MEDS: ACETAMINOPHEN TAB 650MG DOSE (2X325MG) PO PRN ×2 (01:31→16:25)
[2021-10-23] MEDS: PIPERACILLIN/TAZOBACTAM SOD 3.375 GM in D5W MINI-BAG PLUS 50 ML IV SCH ×4 (04:29→22:09)
[2021-10-23] MEDS: PANTOPRAZOLE 40MG TAB (PROTONIX) PO SCH (08:57)
[2021-10-23] MEDS: GABAPENTIN 100 MG CAP PO SCH ×3 (08:57→22:07)
[2021-10-23] MEDS: ENOXAPARIN 40MG/0.4ML SYRINGE (J1650 PER 10MG) SC SCH (08:57)
[2021-10-23 09:10] LABS: BASO # 0.1 10^3/uL (0.0-0.2); BASO % 0.5 % (0.0-1.0); EOS # 0.1 10^3/uL (0.0-0.5); EOS % 0.7 % (0.0-3.0); HEMATOCRIT 40.5 % (36.0-47.0); LYMPH # 2.2 10^3/uL (1.5-5.0); LYMPH % 14.3 % (24.0-44.0); MEAN CORPUSCULAR HEMOGLOBIN 28.4 pg (27.0-33.0); MEAN CORPUSCULAR HGB CONC 32.1 g/dl (32.0-36.5); MEAN CORPUSCULAR VOLUME 88.4 fl (80.0-96.0); MONO # 1.3 10^3/uL (0.0-0.8); MONO % 8.2 % (2.0-8.0); NEUTROPHILS # 11.6 10^3/uL (1.5-8.5); NEUTROPHILS % 75.4 % (36.0-66.0); PLATELET COUNT, AUTOMATED 486 10^3/uL (150-450); RED BLOOD COUNT 4.58 10^6/uL (4.00-5.40); WHITE BLOOD COUNT 15.3 10^3/uL (4.0-10.0)
[2021-10-23 09:25] LABS: BLOOD UREA NITROGEN 19 MG/DL (7-18); CALCIUM LEVEL 9.2 MG/DL (8.5-10.1); CARBON DIOXIDE LEVEL 27 MEQ/L (21-32); CHLORIDE LEVEL 107 MEQ/L (98-107); CREATININE FOR GFR 0.69 MG/DL (0.55-1.30); GLOMERULAR FILTRATION RATE > 60.0 (>51); GLUCOSE, FASTING 128 MG/DL (70-100); POTASSIUM SERUM 3.7 MEQ/L (3.5-5.1); SODIUM LEVEL 141 MEQ/L (136-145)
--- NOTE | 2021-10-23 11:26 | IPNPDOC ---
Text Note Date of Service The patient was seen on 10/23/21. NOTE Subjective: Patient is a 56-year-old female with a PMHx of HTN, DLP, Anxiety, GERD who presented to the ER on 10/22 with progressive SOB / weight loss / bone pain / R sided supraclavicular lymphadenopathy over a 6 months. Patient had reported a swollen area about her R clavicle and weight loss to the PCP on 08/29 and imaging (CT chest / abdomen / pelvis) was ordered. She had failed to complete these tests because of scheduling problems. Patient had a CT of her abdomen / pelvis completed on 10/07 which revealed showed multiple liver and bone lesions. At that time a PET scan was ordered (insurance denied) and she was referred to [facility]. She was rescheduled because she had cold-like symptoms. Patient was having worsening respiratory symptoms and presented to urgent care where a CXR revealed R lung effusion, RUL mass / post-obstructive pneumonia. She was advised to go to the ER for further evaluation. Upon arrival to the ER patient had a CT chest / abdomen / pelvis completed that was strongly suspicious for metastatic disease and a right upper lobe malignancy. Patient was also found to be COVID19 positive. Patient was admitted to the hospitalist service for further evaluation and treatment. Patient was seen and examined at the bedside. Patient is seen sitting up at the edge of the bed, appeared relatively comfortable. Currently she is on nasal cannula at 2 L. She reports a productive cough. Denies any significant shortness of breath. Denies any chest pain or palpitations. Has not experience any nausea, vomiting, abdominal pain, diarrhea, or urinary discomfort. Objective: Vitals (See below) General: Lying in bed, appears comfortable, AAOx3 HEENT: NC, AT CVS: RRR, +S1S2 Lungs: Diminished sounds at R lung field, no evidence of wheezing, crackles or rhonchi Abdomen: Soft, nondistended, nontender Extremities: - Edema, - Calf tenderness Imaging: CT abdomen / pelvis 10/22: 1. Mixed lytic and blastic foci demonstrated in the right iliac bone, right and left sacrum and left supra-acetabular region. Left sacral lesion obliterates the 2nd sacral foramen. Findings consistent with metastatic disease. 2. There is a diffuse decrease in hepatic parenchymal density, consistent with steatosis. 3. Multiple hypodense lesions demonstrated in the liver measuring up to 2 cm in the medial aspect of the inferior portion of the right lobe consistent with metastatic disease. 4. Lobular contour of the liver particularly involving the capsular margin of the right lobe, finding which may be related to underlying metastatic disease although chronic liver disease of other etiology including cirrhosis not excluded. 5. The gallbladder is incompletely distended. This is most likely related to incomplete fasting. Clinical correlation to exclude gallbladder pathology suggested. CTA chest /: 1. Right perihilar reticular infiltrates. 2. Noncalcified 7 mm pulmonary parenchymal nodule demonstrated in the right lower lobe. Finding may represent a metastatic focus. 3. Small to moderate right pleural effusion. No increased density to suggest a hemothorax. 4. Atelectasis and or tumor located in the right middle and upper lobes with occlusion of the upper lobe and middle lobe bronchi. 5. 4 x 6 mm spiculated nodule in the left upper lobe. Finding may represent scarring although neoplasm not excluded. 6. Mild centrilobular emphysematous changes in the left upper lobe. 7. Fragmented appearance of the distal right clavicle adjacent to the acromioclavicular joint. Finding may represent degenerative change versus a fracture. If clinically desired further evaluation with shoulder x-ray suggested. 8. Expansile destructive rib lesion left 1st rib consistent with a metastatic focus. 9. Pathologic fracture posterior left 9th rib. 10. Compression fracture secondary to lytic focus at T11. No retropulsion of bony elements. 11. There is no aortic dissection or aneurysm. 12. There are no pulmonary emboli. 13. Multiple hyperdense foci demonstrated in the liver measuring up to 2.3 cm in the medial aspect of the right lobe of the liver suspect for hepatic metastases. 14. Lytic destructive focus demonstrated in the manubrium with a nondisplaced manubrial fracture. Assessment and plan: Possible Post-obstructive pneumonia based on imaging - Patient does report a productive cough; describes mucus as clear - Currently patient is hemodynamically stable and afebrile - Leukocytosis improving / No lactic acidosis - Patient appears to have Leukocytosis from 08/29/2021 at 14.5 - [facility] - PCT of 0.09 - Sputum cultures Pending / Blood cultures 10/22: Pending - MRSA screen pending - c/w Zosyn (Day #2) COVID19 pneumonia - Patient is currently on minimal amounts of oxygen (1-2L NC) - Patient reports URI like symptoms for ~2 weeks - COVID19 positive test on 10/22 - Patient has received vaccine x2 - Will check inflammatory markers - Will hold off on starting full treatment with Dexamethasone / Remdesivir; suspect hypoxia likely 2/2 above; however if hypoxia has any worsening will start immediately Suspected metastatic disease - likely 2/2 lung primary - Extensive smoking history / Weight loss / Bone pain - Imaging reveals small to moderate R sided effusion - Discussed with pulmonology and reviewed imaging together; suggested getting IR guided drainage of fluid for cytology - Will order IR thoracentesis for tomorrow AM and send fluid for analysis / cytology Lytic bone lesions / Multiple fractures - c/w Tramadol / Ultracet / Gabapentin HTN - BP well controlled - c/w Atenolol Anxiety - c/w Hydroxyzine / Ativan / Venlafaxine DLP - c/w Pravastatin GERD - c/w Protonix DVT prophylaxis - c/w Lovenox Disposition: - Pending clinical improvement VS,Lauren, I+O VS, Lauren, I+O Laboratory Tests 10/22/21 19:37 10/23/21 08:47 Vital Signs Date Time Temp Pulse Resp B/P (MAP) Pulse Ox O2 Delivery O2 Flow Rate FiO2 10/23/21 04:00 98.8 92 18 147/65 (92) 95 Nasal Cannula 2.0 I&O- Last 24 Hours up to 6 AM 10/23/21 06:00 Intake Total 100 ml Balance 100 ml RUSLAN DEGROOT MD Oct 23, 2021 11:26
[2021-10-23 12:07] LABS: ALBUMIN 2.9 GM/DL (3.2-5.2); ALT/SGPT 19 U/L (12-78); BILIRUBIN,DIRECT 0.2 MG/DL (0.0-0.2); BILIRUBIN,TOTAL 0.4 MG/DL (0.2-1.0); FERRITIN 270 NG/ML (8-252); LDH LACTATE DEHYDROGENASE 160 U/L (84-246)
[2021-10-23] MEDS: traMADol 50 MG TAB PO PRN (13:33)
--- NOTE | 2021-10-23 17:48 | ECGEPIP ---
[facility] Test Date: 2021-10-23 Pat Name: STACY LANIER Department: Room: [place] [address] Gender: Female Direct Sales Professional: deepika larson : 1965 Requested By: GENA LAL Order Number: [id number] Reading MD: Anderson Sanon Measurements Intervals [place] Rate: 111 P: 68 GA: 130 QRS: 98 QRSD: 70 T: 71 QT: 314 QTc: 427 Interpretive Statements Sinus tachycardia Possible Left atrial enlargement Rightward axis Septal infarct , age undetermined Delayed anterior R wave progression Nonspecific ST-T wave abnormalities Comparison tracing not on file Electronically Signed on 10-23-2021 17:47:54 EST by Anderson Sanon
[2021-10-24] VITALS (8 sets, daily range): BP systolic 131–151; BP diastolic 62–81; O2SAT 93–96
[2021-10-24] MEDS: traMADol 50 MG TAB PO PRN (02:36)
[2021-10-24] MEDS: PIPERACILLIN/TAZOBACTAM SOD 3.375 GM in D5W MINI-BAG PLUS 50 ML IV SCH ×4 (04:30→20:41)
[2021-10-24 07:59] LABS: BASO # 0.1 10^3/uL (0.0-0.2); BASO % 0.5 % (0.0-1.0); EOS # 0.1 10^3/uL (0.0-0.5); EOS % 0.5 % (0.0-3.0); HEMATOCRIT 39.7 % (36.0-47.0); HEMOGLOBIN 12.5 g/dl (12.0-15.5); LYMPH # 2.3 10^3/uL (1.5-5.0); LYMPH % 13.6 % (24.0-44.0); MEAN CORPUSCULAR HEMOGLOBIN 28.1 pg (27.0-33.0); MEAN CORPUSCULAR HGB CONC 31.5 g/dl (32.0-36.5); MEAN CORPUSCULAR VOLUME 89.2 fl (80.0-96.0); NEUTROPHILS # 13.1 10^3/uL (1.5-8.5); NEUTROPHILS % 75.8 % (36.0-66.0); PLATELET COUNT, AUTOMATED 479 10^3/uL (150-450); RED BLOOD COUNT 4.45 10^6/uL (4.00-5.40); WHITE BLOOD COUNT 17.3 10^3/uL (4.0-10.0)
[2021-10-24 08:32] LABS: ALBUMIN 2.8 GM/DL (3.2-5.2); ALT/SGPT 20 U/L (12-78); BILIRUBIN,DIRECT 0.2 MG/DL (0.0-0.2); BILIRUBIN,TOTAL 0.5 MG/DL (0.2-1.0); BLOOD UREA NITROGEN 18 MG/DL (7-18); CARBON DIOXIDE LEVEL 27 MEQ/L (21-32); CHLORIDE LEVEL 106 MEQ/L (98-107); CREATININE FOR GFR 0.59 MG/DL (0.55-1.30); GLOMERULAR FILTRATION RATE > 60.0 (>51); GLUCOSE, FASTING 97 MG/DL (70-100); LDH LACTATE DEHYDROGENASE 170 U/L (84-246); SODIUM LEVEL 140 MEQ/L (136-145); TOTAL PROTEIN 6.9 GM/DL (6.4-8.2)
[2021-10-24] MEDS: ENOXAPARIN 40MG/0.4ML SYRINGE (J1650 PER 10MG) SC SCH (08:36)
[2021-10-24 08:37] LABS: MONO # 1.6 10^3/uL (0.0-0.8)
[2021-10-24] MEDS: GABAPENTIN 100 MG CAP PO SCH ×3 (08:51→20:41)
[2021-10-24] MEDS: atenoloL 25 MG TAB PO SCH ×2 (08:52→20:42)
[2021-10-24] MEDS: PANTOPRAZOLE 40MG TAB (PROTONIX) PO SCH (08:52)
--- NOTE | 2021-10-24 10:55 | IPNPDOC ---
Text Note Date of Service The patient was seen on 10/24/21. NOTE Subjective: Patient is a 56-year-old female with a PMHx of HTN, DLP, Anxiety, GERD who presented to the ER on 10/22 with progressive SOB / weight loss / bone pain / R sided supraclavicular lymphadenopathy over a 6 months. Patient had reported a swollen area about her R clavicle and weight loss to the PCP on 08/29 and imaging (CT chest / abdomen / pelvis) was ordered. She had failed to complete these tests because of scheduling problems. Patient had a CT of her abdomen / pelvis completed on 10/07 which revealed showed multiple liver and bone lesions. At that time a PET scan was ordered (insurance denied) and she was referred to [facility]. She was rescheduled because she had cold-like symptoms. Patient was having worsening respiratory symptoms and presented to urgent care where a CXR revealed R lung effusion, RUL mass / post-obstructive pneumonia. She was advised to go to the ER for further evaluation. Upon arrival to the ER patient had a CT chest / abdomen / pelvis completed that was strongly suspicious for metastatic disease and a right upper lobe malignancy. Patient was also found to be COVID19 positive. Patient was admitted to the hospitalist service for further evaluation and treatment. Patient was seen and examined at the bedside. Currently patient reports her breathing is doing relatively fine. Still reports a mild cough, without any significant sputum expectoration. Denies any N/V, abdominal pain, C/D, or u rinary discomfort. Objective: Vitals (See below) General: Sitting up in bed, appears comfortable, not in any acute distress, AAOx3 HEENT: normocephalic and atraumatic CVS: +S1S2 Lungs: R lung filed with diminished sounds, no rhonchi / rales / wheezing appreciated Abdomen: Remains soft, non-distended, non-tender Extremities: No LE edema noted Imaging: CT abdomen / pelvis 10/22: 1. Mixed lytic and blastic foci demonstrated in the right iliac bone, right and left sacrum and left supra-acetabular region. Left sacral lesion obliterates the 2nd sacral foramen. Findings consistent with metastatic disease. 2. There is a diffuse decrease in hepatic parenchymal density, consistent with steatosis. 3. Multiple hypodense lesions demonstrated in the liver measuring up to 2 cm in the medial aspect of the inferior portion of the right lobe consistent with metastatic disease. 4. Lobular contour of the liver particularly involving the capsular margin of the right lobe, finding which may be related to underlying metastatic disease although chronic liver disease of other etiology including cirrhosis not excluded. 5. The gallbladder is incompletely distended. This is most likely related to incomplete fasting. Clinical correlation to exclude gallbladder pathology suggested. CTA chest 10/22: 1. Right perihilar reticular infiltrates. 2. Noncalcified 7 mm pulmonary parenchymal nodule demonstrated in the right lower lobe. Finding may represent a metastatic focus. 3. Small to moderate right pleural effusion. No increased density to suggest a hemothorax. 4. Atelectasis and or tumor located in the right middle and upper lobes with occlusion of the upper lobe and middle lobe bronchi. 5. 4 x 6 mm spiculated nodule in the left upper lobe. Finding may represent scarring although neoplasm not excluded. 6. Mild centrilobular emphysematous changes in the left upper lobe. 7. Fragmented appearance of the distal right clavicle adjacent to the acromioclavicular joint. Finding may represent degenerative change versus a fracture. If clinically desired further evaluation with shoulder x-ray sugges lorna. 8. Expansile destructive rib lesion left 1st rib consistent with a metastatic focus. 9. Pathologic fracture posterior left 9th rib. 10. Compression fracture secondary to lytic focus at T11. No retropulsion of bony elements. 11. There is no aortic dissection or aneurysm. 12. There are no pulmonary emboli. 13. Multiple hyperdense foci demonstrated in the liver measuring up to 2.3 cm in the medial aspect of the right lobe of the liver suspect for hepatic metastases. 14. Lytic destructive focus demonstrated in the manubrium with a nondisplaced manubrial fracture. Assessment and plan: Possible Post-obstructive pneumonia based on imaging - Patient does report a productive cough; describes mucus as clear - Currently patient is hemodynamically stable and afebrile - Leukocytosis relatively unchanged / No lactic acidosis - Patient appears to have Leukocytosis from 08/29/2021 at 14.5 - [facility] on [facility] - PCT of 0.09 - MRSA screen negative - Sputum cultures Pending - Blood cultures 10/22: 24 hours - c/w Zosyn (Day #3) COVID19 pneumonia - Patient is currently on minimal amounts of oxygen (1-2L NC) - has remained on this amount for ~48 hours - Patient reports URI like symptoms for ~2 weeks - COVID19 positive test on 10/22 - Patient has received vaccine x2 - Inflammatory markers - If hypoxia worsens despite thoracentesis, will consider adding Dexamethasone / Remdesivir Suspected metastatic disease - likely 2/2 lung primary - Extensive smoking history / Weight loss / Bone pain - Imaging reveals small to moderate R sided effusion - Initially discussed with pulmonology and reviewed imaging together; suggested getting IR guided drainage of fluid for cytology - Thoracentesis for analysis / cytology will be need for tissue diagnosis - Discussed with Radiology - unfortunately will not be able to get this completed until Sunday - Discussed again with Pulmonology; will evaluate to determine if bedside thoracentesis can be performed; we appreciate their assistance - Will get CXR / Coagulation profile for today Lytic bone lesions / Multiple fractures - c/w Tramadol / Ultracet / Gabapentin HTN - BP well controlled - c/w Atenolol Anxiety - c/w Hydroxyzine / Ativan / Venlafaxine DLP - c/w Pravastatin GERD - c/w Protonix DVT prophylaxis - c/w Lovenox Disposition: - Pending clinical improvement VS,Lauren, I+O VSLauren I+O Laboratory Tests 10/24/21 07:05 Vital Signs Date Time Temp Pulse Resp B/P (MAP) Pulse Ox O2 Delivery O2 Flow Rate FiO2 10/24/21 06:00 94 Nasal Cannula 2.0 10/24/21 04:00 97.8 99 18 151/81 (104) I&O- Last 24 Hours up to 6 AM 10/24/21 06:00 Intake Total 880 ml Balance 880 ml RUSLAN DEGROOT MD Oct 24, 2021 10:55
[2021-10-24 11:14] LABS: INR 1.1; PROTHROMBIN TIME 14.6 SECONDS (12.7-14.5)
[2021-10-24 11:15] LABS: PARTIAL THROMBOPLASTIN TIME 33.8 SECONDS (25.9-37.0)
--- NOTE | 2021-10-24 11:21 | REP ---
INDICATION: Evaluate R sided effusion. COMPARISON: CT 10/22/2021. TECHNIQUE: Single portable AP view of the chest was performed. FINDINGS: Parenchymal opacification on the right appears somewhat improved since the prior CT scan of 10/22/2021. There is mild focal pleural based density in the right apex. There may be posterior layering pleural fluid present. The left lung is clear. The heart is not enlarged. There is a prominent right hilar shadow. There is a slightly displaced fracture of the distal right clavicle. IMPRESSION: Right lung appears better aerated than on the prior CT of 10/22/2021. There is a prominent right hilar opacity and right apical pleural thickening or fluid. There may be posteriorly layering pleural fluid present.There is a slightly displaced fracture of the distal right clavicle. <Electronically signed by Abdi Russell > 10/24/21 1110
--- NOTE | 2021-10-24 12:09 | CR.PDOC ---
General Date of Consultation: Oct 24, 2021 Consultation REASON FOR PULMONOLOGY CONSULTATION/CHIEF COMPLAINT: Pleural effusion HISTORY OF PRESENT ILLNESS: 56-year-old female who presented to the hospital with a chief complaint of shortness of breath and cough. Approximately 2 weeks prior to presentation she was starting to have gradual and progressive onset dyspnea on exertion in addition to productive cough. She went to urgent care for her symptoms initially where they did a chest x-ray which was concerning for pneumonia2 and they advised her to go to the emergency department. In the ED she was hemodynamically stable though requiring 2 L of oxygen. In the ED she tested positive for Covid and had a elevated white blood cell count and chest and abdominal imaging for concerning for lung mass with pleural effusion on the right and metastatic disease. She denied any fevers, chills, night sweats. She does endorse unintentional weight loss of approximately 30 pounds in the last 6 months. To note she is currently being worked up as an outpatient for a enlarged lymph node right supraclavicular and she was awaiting PET scan. PAST MEDICAL/SURGICAL HISTORY: Hypertension, GERD, anxiety, dyslipidemia. , dilation curettage FAMILY HISTORY: She is adopted and does not know her biologic parent medical history SOCIAL HISTORY: Active smoker 2 packs/day x 40 years. Occasional alcohol use. Denies illicit drug use. Lives at home with her son his. 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 She has 1 cat. ALLERGIES: Please see below. HOME MEDICATIONS: Please see below. REVIEW OF SYSTEMS: CONSTITUTIONAL: Denies fever, chills, night sweats EYES: No blurring of vision or redness. ENT: No sore throat. No epistaxis. No tinnitus. CARDIOVASCULAR: No chest pain. No palpitations. RESPIRATORY: See HPI GASTROINTESTINAL: No nausea, vomiting, or diarrhea. GENITOURINARY: No frequency, urgency, nocturia. No hematuria or dysuria. MUSCULOSKELETAL: No arthralgias or myalgias. INTEGUMENTARY: No rash or swelling NEUROLOGIC: No headache. No numbness or tingling of the extremities. No weakness. PSYCHIATRIC: No confusion or mood changes. ENDOCRINE: No fatigue, no goiter. HEMATOLOGICAL: No bleeding. No petechiae. No bruising. Enlarged lymph node right supraclavicular PHYSICAL EXAMINATION: VITAL SIGNS: Please see below. GENERAL APPEARANCE: Alert and awake. Pulse ox 94% on 2 L nasal cannula HEENT: no thyromegaly, trachea midline, PERRLA. normal mucous membranes RESPIRATORY: CTA B/L, good air entry. No wheeze or rhonchi CARDIOVASCULAR: +s1 s2, no murmurs. ABDOMEN: nontender, not distended, +BS EXTREMITIES: no edema or erythema. palpable distal pulses SKIN: no rash, no purpura NEUROLOGICAL: no sensory or motor deficits, orientedx3. LABS/IMAGING: Chest x-ray today I reviewed, there is a right-sided opacity and small right- sided effusion CTA chest 1. Right perihilar reticular infiltrates. 2. Noncalcified 7 mm pulmonary parenchymal nodule demonstrated in the right lower lobe. Finding may represent a metastatic focus. 3. Small to moderate right pleural effusion. No increased density to suggest a hemothorax. 4. Atelectasis and or tumor located in the right middle and upper lobes with occlusion of the upper lobe and middle lobe bronchi. 5. 4 x 6 mm spiculated nodule in the left upper lobe. Finding may represent scarring although neoplasm not excluded. 6. Mild centrilobular emphysematous changes in the left upper lobe. 7. Fragmented appearance of the distal right clavicle adjacent to the acromioclavicular joint. Finding may represent degenerative change versus a fracture. If clinically desired further evaluation with shoulder x-ray suggested. 8. Expansile destructive rib lesion left 1st rib consistent with a metastatic focus. 9. Pathologic fracture posterior left 9th rib. 10. Compression fracture secondary to lytic focus at T11. No retropulsion of bony elements. 11. There is no aortic dissection or aneurysm. 12. There are no pulmonary emboli. 13. Multiple hyperdense foci demonstrated in the liver measuring up to 2.3 cm in the medial aspect of the right lobe of the liver suspect for hepatic metastases. 14. Lytic destructive focus demonstrated in the manubrium with a nondisplaced manubrial fracture. CT abdomen pelvis with contrast 1. Mixed lytic and blastic foci demonstrated in the right iliac bone, right and left sacrum and left supra-acetabular region. Left sacral lesion obliterates the 2nd sacral foramen. Findings consistent with metastatic disease. 2. There is a diffuse decrease in hepatic parenchymal density, consistent with steatosis. 3. Multiple hypodense lesions demonstrated in the liver measuring up to 2 cm in the medial aspect of the inferior portion of the right lobe consistent with metastatic disease. 4. Lobular contour of the liver particularly involving the capsular margin of the right lobe, finding which may be related to underlying metastatic disease although chronic liver disease of other etiology including cirrhosis not excluded. 5. The gallbladder is incompletely distended. This is most likely related to incomplete fasting. Clinical correlation to exclude gallbladder pathology suggested. ASSESSMENT: 1. Covid pneumonia with hypoxemia 2. Probable right lung mass with evidence of metastatic disease to the bone 3. Cannot rule out postobstructive infectious process in right upper lobe with small right sided effusion, simple fluid on ultrasound 4. Heavy smoker with emphysematous changes on chest imaging PLAN: * [id number] ultrasound performed at bedside of the right effusion revealed it is very small and would be technically difficult to perform thoracentesis. I do not believe the pleural effusion is contributing much to her symptoms. In addition I do not believe the pleural fluid would be high yield specimen to evaluate for malignancy. Given she has evidence of metastatic disease including a enlarged right supraclavicular lymph node recommend tissue sampling. It may be prudent to perform PET scan as outpatient first in order to guide the most appropriate site to biopsy. * Agree with course of antibiotics for possible postobstructive pneumonia and given her blood cultures are negative and there is no evidence of pseudomonal infection recommend de-escalating. * Outpatient follow-up with pulmonary * Covid specific therapies per primary team * DVT prophylaxis Thank you for the courtesy of this consult. Don White MD Pulmonary/Critical Care Vital Signs/I&O Vital Signs Date Time Temp Pulse Resp B/P (MAP) Pulse Ox O2 Delivery O2 Flow Rate FiO2 10/24/21 06:00 94 Nasal Cannula 2.0 10/24/21 04:00 97.8 99 18 151/81 (104) I&O- Last 24 Hours up to 6 AM 10/24/21 06:00 Intake Total 880 ml Balance 880 ml Laboratory Data Labs 24H Laboratory Tests 2 10/24/21 04:55: Methicillin-Resist S.aureus DNA PCR NOT DETECTED 10/24/21 07:05: Immature Granulocyte % (Auto) 0.6, Neutrophils (%) (Auto) 75.8H, Lymphocytes (%) (Auto) 13.6L, Monocytes (%) (Auto) 9.0H, Eosinophils (%) (Auto) 0.5, Basophils (%) (Auto) 0.5, Neutrophils # (Auto) 13.1H, Lymphocytes # (Auto) 2.3, Monocytes # (Auto) 1.6H, Eosinophils # (Auto) 0.1, Basophils # (Auto) 0.1, Nucleated Red Blood Cells % (auto) 0.0, Prothrombin Time 14.6H, Prothromb Time International Ratio 1.10, Activated Partial Thromboplast Time 33.8, Anion Gap 7L, Glomerular Filtration Rate > 60.0, Calcium Level 9.0, Total Bilirubin 0.5, Direct Bilirubin 0.2, Aspartate Amino Transf (AST/SGOT) 27, Alanine Aminotransferase (ALT/SGPT) 20, Alkaline Phosphatase 316H, Lactate Dehydrogenase 170, C-Reactive Protein, Quantitative 7.40H, Total Protein 6.9, Albumin 2.8L, Albumin/Globulin Ratio 0.7L CBC/BMP Laboratory Tests 10/24/21 07:05 Microbiology Microbiology 10/22/21 Blood Culture - Preliminary, Resulted No growth after 24 hours . All specim... 10/22/21 Blood Culture - Preliminary, Resulted No growth after 24 hours . All specim... Allergies Coded Allergies: tetracycline (Verified Allergy, Unknown, 10/22/21) Home Medications Scheduled Atenolol (Atenolol) 25 Mg Tablet, 25 MG PO BID, (Reported) Gabapentin (Gabapentin) 100 Mg Capsule, 100 MG PO TID, (Reported) Pantoprazole Sodium (Pantoprazole Sodium) 40 Mg Tablet.dr, 40 MG PO DAILY, (Reported) Pravastatin Sodium (Pravastatin Sodium) 40 Mg Tablet, 40 MG PO QHS, (Reported) Venlafaxine HCl (Venlafaxine HCl ER) 150 Mg Cap.er.24h, 150 MG PO QHS, (Reported) Scheduled PRN Hydroxyzine HCl (Hydroxyzine HCl) 50 Mg Tablet, 100 MG PO QHS PRN for ANXIETY, (Reported) DON WHITE MD Oct 24, 2021 12:09
[2021-10-24] MEDS: VENLAFAXINE **XR** 75MG CAPSULE PO SCH (20:41)
[2021-10-24] MEDS: PRAVASTATIN 20 MG TAB PO SCH (20:41)
[2021-10-25] MEDS: traMADol 50 MG TAB PO PRN ×2 (02:14→09:18)
[2021-10-25 04:00] VITALS: BP 150/58
[2021-10-25] MEDS: PIPERACILLIN/TAZOBACTAM SOD 3.375 GM in D5W MINI-BAG PLUS 50 ML IV SCH ×2 (04:15→09:17)
[2021-10-25 06:00] VITALS: BP 148/79
[2021-10-25 06:21] LABS: BASO # 0.1 10^3/uL (0.0-0.2); BASO % 0.5 % (0.0-1.0); EOS # 0.1 10^3/uL (0.0-0.5); EOS % 0.5 % (0.0-3.0); HEMATOCRIT 38.9 % (36.0-47.0); HEMOGLOBIN 12.5 g/dl (12.0-15.5); LYMPH # 2.3 10^3/uL (1.5-5.0); LYMPH % 13.5 % (24.0-44.0); MEAN CORPUSCULAR HEMOGLOBIN 28.3 pg (27.0-33.0); MEAN CORPUSCULAR HGB CONC 32.1 g/dl (32.0-36.5); MEAN CORPUSCULAR VOLUME 88.2 fl (80.0-96.0); MONO # 1.5 10^3/uL (0.0-0.8); MONO % 8.9 % (2.0-8.0); NEUTROPHILS # 13.2 10^3/uL (1.5-8.5); PLATELET COUNT, AUTOMATED 453 10^3/uL (150-450); RED BLOOD COUNT 4.41 10^6/uL (4.00-5.40); WHITE BLOOD COUNT 17.3 10^3/uL (4.0-10.0)
[2021-10-25 06:52] LABS: ALBUMIN 2.5 GM/DL (3.2-5.2); ALT/SGPT 19 U/L (12-78); BILIRUBIN,DIRECT 0.2 MG/DL (0.0-0.2); BILIRUBIN,TOTAL 0.5 MG/DL (0.2-1.0); BLOOD UREA NITROGEN 15 MG/DL (7-18); CALCIUM LEVEL 8.9 MG/DL (8.5-10.1); CARBON DIOXIDE LEVEL 28 MEQ/L (21-32); CHLORIDE LEVEL 105 MEQ/L (98-107); CREATININE FOR GFR 0.55 MG/DL (0.55-1.30); GLOMERULAR FILTRATION RATE > 60.0 (>51); GLUCOSE, FASTING 105 MG/DL (70-100); POTASSIUM SERUM 3.5 MEQ/L (3.5-5.1); SODIUM LEVEL 140 MEQ/L (136-145); TOTAL PROTEIN 7.6 GM/DL (6.4-8.2)
[2021-10-25 08:00] VITALS: O2SAT 95
[2021-10-25 08:11] VITALS: BP 149/78
[2021-10-25] MEDS: atenoloL 25 MG TAB PO SCH (08:11)
[2021-10-25] MEDS: PANTOPRAZOLE 40MG TAB (PROTONIX) PO SCH (08:11)
[2021-10-25] MEDS: ENOXAPARIN 40MG/0.4ML SYRINGE (J1650 PER 10MG) SC SCH (08:12)
[2021-10-25] MEDS: GABAPENTIN 100 MG CAP PO SCH (08:12)
[2021-10-25] MEDS ORDERED: CEFD1CAP8 PO (11:05)
[2021-10-25] MEDS ORDERED: DOXY-350 PO (11:05)
--- NOTE | 2021-10-25 11:14 | DS.PDOC ---
Discharge Summary General Date of Admission Oct 22, 2021 at 22:31 Date of Discharge 10/25/21 Specialist/Consultants Involve pulmonology Discharge Summary PROCEDURES PERFORMED DURING STAY: [None]. DISCHARGE DIAGNOSES: Hypertension GERD Anxiety Hyperlipidemia COMPLICATIONS/CHIEF COMPLAINT: Dyspnea;Pleural Effusion; Postobstructive Pneumoni. HISTORY OF PRESENT ILLNESS: From H&P- Patient is a 56-year-old female who presents with a year-long history of progressively worsening shortness of breath. She did not notice this much at first but over the course of the past year feels that she has had progressively worsening exertional dyspnea. She also notes that sometime in April 2021 she began having pain all over for no apparent reason. In early August she noticed a right lump above her clavicle and the side of her neck and went to her primary care office for evaluation. She was evaluated at [facility] on 08/29 where she was evaluated for a swollen lymph node above her right clavicle as well as abnormal weight loss. At that time her [facility] provider ordered lab work, ultrasound of the neck, CT of the abdomen/pelvis, and a low-dose lung CT. She failed to have those done at that time due to multiple rescheduling incidents and presented for follow-up on 09/22/2021 with again instructions to undergo imaging for same. On 10/07/2021 she presented for follow-up and CT of her abdomen showed multiple liver and bone lesions. At that time a PET scan was ordered (insurance denied) and she was referred to [facility], but had to reschedule as she developed a cold on the date she was supposed to present. She was hopeful following this cold that her shortness of breath would improve but it is continued while all of her other upper respiratory symptoms have resolved and she feels that is even worsened to the point where she presented at the urging of her daughter to an urgent care where a chest x-ray showed a large pleural effusion and a postobstructive pneumonia as well as multiple lytic and blastic lesions in the liver and spine. The urgent care advised her to proceed to the emergency department for further evaluation. In the ED she was found to have an elevated white blood cell count of 18,000 and was found to have chest CT findings consistent with a postobstructive pneumonia as well as a small to moderate right-sided pleural effusion. Hospitalist service was contacted to admit the patient for work-up of her metastatic cancer as well as treatment of her postobstructive pneumonia. She was found to be COVID positive as the swab had yet to be collected at time of admission. HOSPITAL COURSE: Possible Post-obstructive pneumonia based on imaging - Patient does report a productive cough; describes mucus as clear - patient hemodynamically stable and afebrile - Leukocytosis relatively unchanged / No lactic acidosis - Patient appears to have Leukocytosis from 08/29/2021 at 14.5 - Verified on [employer] - PCT of 0.09 - MRSA screen negative - Sputum cultures Pending - Blood cultures NTD -Completed 4 days of Zosyn Discharged home to complete 10 days of antibiotics - Pulmonary consult appreciated -Discharged home with supplemental oxygen COVID19 pneumonia - Patient is currently on minimal amounts of oxygen (1-2L NC) - Patient reports URI like symptoms for ~2 weeks - COVID19 positive test on 10/22 - Patient has received vaccine x2 - discharge home with supplemental oxygen - pulm c/s appreciated Suspected metastatic disease - likely 2/2 lung primary - Extensive smoking history / Weight loss / Bone pain - Imaging reveals small to moderate R sided effusion - Initially discussed with pulmonology and reviewed imaging together; suggested getting IR guided drainage of fluid for cytology - Thoracentesis for analysis / cytology will be need for tissue diagnosis - Discussed with Radiology - unfortunately will not be able to get this completed until Sunday - previously Discussed again with Pulmonology - c/s appreciated - no indicated for thoracentesis - o/p f/u with pulm, oncology - PET scan Lytic bone lesions / Multiple fractures - c/w Tramadol / Ultracet / Gabapentin - follow up with oncology HTN - BP well controlled - c/w Atenolol Anxiety - c/w Hydroxyzine / Ativan / Venlafaxine DLP - c/w Pravastatin GERD - c/w Protonix DISCHARGE MEDICATIONS: Please see below. ALLERGIES: Please see below. PHYSICAL EXAMINATION ON DISCHARGE: Vital Signs: reviewed General: NAD, lying comfortably in bed HEENT: NC/AT, EOMI, edentulous Neck: supple, no masses Chest: lungs CTA B/L Heart: +S1S2, RRR Abd: soft, NT, ND, +BS Ext: no edema Skin: no rashes MSK: full ROM at large joints Neuro: no gross focal deficits Psych: AAOx3 LABORATORY DATA: Please see below. DISCHARGE INSTRUCTIONS: 1. Follow up with PCP in 3-5 days. 2. Follow up with pulmonology as scheduled. 3. Follow up with oncology as scheduled including PET scan. DISCHARGE CONDITION: [Stable]. TIME SPENT ON DISCHARGE: 35 minutes. Vital Signs/I&Os Vital Signs Date Time Temp Pulse Resp B/P (MAP) Pulse Ox O2 Delivery O2 Flow Rate FiO2 10/25/21 10:35 20 94 Nasal Cannula 2.0 10/25/21 08:11 88 149/78 10/25/21 06:00 98.1 I&O- Last 24 Hours up to 6 AM 10/25/21 06:00 Intake Total 570 ml Output Total 380 ml Balance 190 ml Laboratory Data Labs 24H Laboratory Tests 2 10/25/21 06:07: Immature Granulocyte % (Auto) 0.6, Neutrophils (%) (Auto) 76.0H, Lymphocytes (%) (Auto) 13.5L, Monocytes (%) (Auto) 8.9H, Eosinophils (%) (Auto) 0.5, Basophils (%) (Auto) 0.5, Neutrophils # (Auto) 13.2H, Lymphocytes # (Auto) 2.3, Monocytes # (Auto) 1.5H, Eosinophils # (Auto) 0.1, Basophils # (Auto) 0.1, Nucleated Red Blood Cells % (auto) 0.0, Anion Gap 7L, Glomerular Filtration Rate > 60.0, Calcium Level 8.9, Total Bilirubin 0.5, Direct Bilirubin 0.2, Aspartate Amino Transf (AST/SGOT) 21, Alanine Aminotransferase (ALT/SGPT) 19, Alkaline Phosphatase 322H, Total Protein 7.6, Albumin 2.5L, Albumin/Globulin Ratio 0.5L CBC/BMP Laboratory Tests 10/25/21 06:07 Microbiology Microbiology 10/22/21 Blood Culture - Preliminary, Resulted No Growth after 48 hours. All Specime... 10/22/21 Blood Culture - Preliminary, Resulted No Growth after 48 hours. All Specime... Discharge Medications Scheduled Atenolol (Atenolol) 25 Mg Tablet, 25 MG PO BID, (Reported) Cefdinir (Cefdinir) 300 Mg Capsule, 1 CAP PO BID Doxycycline Monohydrate (Doxycycline) 100 Mg Capsule, 1 CAP PO BID Gabapentin (Gabapentin) 100 Mg Capsule, 100 MG PO TID, (Reported) Pantoprazole Sodium (Pantoprazole Sodium) 40 Mg Tablet.dr, 40 MG PO DAILY, (Reported) Pravastatin Sodium (Pravastatin Sodium) 40 Mg Tablet, 40 MG PO QHS, (Reported) Venlafaxine HCl (Venlafaxine HCl ER) 150 Mg Cap.er.24h, 150 MG PO QHS, (Reported) Scheduled PRN Hydroxyzine HCl (Hydroxyzine HCl) 50 Mg Tablet, 100 MG PO QHS PRN for ANXIETY, (Reported) Allergies Coded Allergies: tetracycline (Verified Allergy, Unknown, 10/22/21) CLEMENTE KUMAR MD Oct 25, 2021 11:14
== END 2021-10-25 13:58 | disposition home or self-care (01) | DRG 137 ==
LOC: M ED 18:28 → M ED INP 22:31 → ENRESERV 10-23 00:13 → M 4MAIN 10-23 00:45
PROVIDERS: ADMIT Family Medicine; ATTEND Internal Medicine
DX: U07.1 COVID-19 (principal); J12.82 Pneumonia due to coronavirus disease 2019; C78.7 Secondary malignant neoplasm of liver and intrahepatic bile duct; C79.51 Secondary malignant neoplasm of bone; M84.48XA Pathological fracture, other site, initial encounter for fracture; C34.11 Malignant neoplasm of upper lobe, right bronchus or lung; K21.9 Gastro-esophageal reflux disease without esophagitis; F41.9 Anxiety disorder, unspecified; E78.5 Hyperlipidemia, unspecified; F17.200 Nicotine dependence, unspecified, uncomplicated; I10 Essential (primary) hypertension; Z79.899 Other long term (current) drug therapy; Z88.8 Allergy status to other drugs, medicaments and biological substances

== ENCOUNTER → 2021-12-21 | Outpatient (CLI) | payer OTHER ==
[~2021-12-21] MED LIST: ACET1TAB16 PO; ATEN25TA PO; CEFD300C41 PO; CVS10CAP7 PO; DOXY-350 PO; GABA-1171 PO; HYDR50TA70 PO; LIDOCAINE 1% MDV 20ML VIAL As Ordered ONE; PANT40TA29 PO; PRAV40TA2 PO; VENL150C43 PO
[2021-12-21 11:10] VITALS: BP 119/77
== END ==
LOC: M IRPRO 10:14
PROVIDERS: ATTEND Otolaryngology
DX: C77.0 Secondary and unspecified malignant neoplasm of lymph nodes of head, face and neck (principal)

== ENCOUNTER 2022-01-13 15:35 | Inpatient (IN) | payer OTHER ==
[~2022-01-13] VITALS: Ht 170.2 cm; Wt 72.0 kg
[~2022-01-13 15:35] MED LIST changes: -LIDOCAINE 1% MDV 20ML VIAL As Ordered ONE
[2022-01-13] MEDS ORDERED: MORPHINE 4 MG/ML 1ML VIAL/SYRINGE (J2270) IV PRN (15:55)
[2022-01-13] MEDS ORDERED: NS 500 ML IV ONE (15:55)
[2022-01-13] MEDS ORDERED: NS 1,000 ML IV SCH (15:55)
[2022-01-13 17:22] LABS: RSV AMPLIFICATION NEGATIVE (NEGATIVE)
[2022-01-13] MEDS ORDERED: GABA-1171 PO (18:48)
[2022-01-13] MEDS ORDERED: HOME MED LIST COMPLETE! XX SCH (20:05)
[2022-01-13] MEDS ORDERED: ALBUTEROL SULFATE 2.5 MG/0.5 ML INH NEB SOLN INH PRN (20:30)
[2022-01-13] MEDS: NS 1,000 ML IV SCH (20:30)
[2022-01-13] MEDS: VENLAFAXINE **XR** 75MG CAPSULE PO SCH (21:00)
[2022-01-13] MEDS ORDERED: HYDROmorphone 2 MG TAB PO PRN (22:10)
[2022-01-13] MEDS ORDERED: PILL CUTTER 1 EACH XX PRN (22:15)
[2022-01-13] MEDS: PERCOCET 5MG/325MG TAB PO PRN (22:32)
[2022-01-14] VITALS (17 sets, daily range): BP systolic 101–130; BP diastolic 55–77; O2SAT 93–99
[2022-01-14] MEDS: NS 1,000 ML IV SCH ×2 (01:30→03:24)
[2022-01-14] MEDS: PERCOCET 5MG/325MG TAB PO PRN ×3 (04:34→17:23)
[2022-01-14 05:45] LABS: HEMATOCRIT 29.8 % (36.0-47.0); HEMOGLOBIN 9.6 g/dl (12.0-15.5)
[2022-01-14] MEDS ORDERED: HEPARIN SOD (PORCINE) 5000UNITS/ML 1ML VIAL/SYRINGE SC SCH (06:00)
[2022-01-14 06:12] LABS: CALCIUM LEVEL 8.9 MG/DL (8.5-10.1); CREATININE FOR GFR 3.07 MG/DL (0.55-1.30); GLOMERULAR FILTRATION RATE 16.6 (>51); POTASSIUM SERUM 3.8 MEQ/L (3.5-5.1)
[2022-01-14 08:18] LABS: HEMATOCRIT 29.3 % (36.0-47.0); HEMOGLOBIN 9.6 g/dl (12.0-15.5); MEAN CORPUSCULAR HEMOGLOBIN 28.2 pg (27.0-33.0); MEAN CORPUSCULAR HGB CONC 32.8 g/dl (32.0-36.5); MEAN CORPUSCULAR VOLUME 85.9 fl (80.0-96.0); PLATELET COUNT, AUTOMATED 465 10^3/uL (150-450); RED BLOOD COUNT 3.41 10^6/uL (4.00-5.40)
[2022-01-14 08:25] LABS: INR 1.22; PROTHROMBIN TIME 15.8 SECONDS (12.7-14.5)
[2022-01-14 08:41] LABS: ALBUMIN 1.8 GM/DL (3.2-5.2); BILIRUBIN,TOTAL 0.7 MG/DL (0.2-1.0); CALCIUM LEVEL 8.7 MG/DL (8.5-10.1); CREATININE FOR GFR 2.96 MG/DL (0.55-1.30); GLOMERULAR FILTRATION RATE 17.3 (>51); POTASSIUM SERUM 3.7 MEQ/L (3.5-5.1); TOTAL PROTEIN 7.3 GM/DL (6.4-8.2)
[2022-01-14] MEDS: IPRATROPIUM 0.5MG/ALBUTEROL 2.5MG INH SOL UD 3ML (DUONEB) NEB SCH ×2 (08:46→11:24)
[2022-01-14] MEDS: PANTOPRAZOLE 40MG TAB (PROTONIX) PO SCH (08:49)
[2022-01-14] MEDS: atenoloL 25 MG TAB PO SCH ×2 (08:54→20:18)
[2022-01-14] MEDS ORDERED: ONDANSETRON 4MG/2ML VIAL IV PRN (10:05)
[2022-01-14] MEDS: LIDOCAINE 1% MDV 20ML VIAL SC ONE ×2 (11:00→15:40)
[2022-01-14] MEDS ORDERED: LIDOCAINE 1% MDV 20ML VIAL As Ordered ONE ×2 (11:03→15:02)
[2022-01-14] MEDS ORDERED: MIDAZOLAM INJ 2MG/2ML VIAL (J2250 PER 1MG) As Ordered ONE (15:01)
[2022-01-14] MEDS ORDERED: flumazeniL 0.5 MG/5 ML VIAL As Ordered ONE (15:01)
[2022-01-14] MEDS ORDERED: BISACODYL 10 MG SUPP PR PRN (16:15)
[2022-01-14] MEDS ORDERED: LEVALBUTEROL 1.25 MG/0.5 ML CONCENTRATE NEB NEB PRN (16:15)
[2022-01-14] MEDS ORDERED: ACETAMINOPHEN TAB 650MG DOSE (2X325MG) PO PRN (16:15)
[2022-01-14] MEDS: KETOROLAC 30 MG/ML 1ML VIAL IV SCH ×2 (17:00→19:33)
[2022-01-14 17:44] LABS: PH BODY FLUID 7.079 UNITS (NOT ESTABLISHED); SOURCE, BODY FLUID pH PLEURAL
[2022-01-14 18:02] LABS: SOURCE, BODY FLUID ALBUMIN PLEURAL; SOURCE, BODY FLUID TOT PROTEIN PLEURAL
[2022-01-14 18:08] LABS: APPEARANCE, BODY FLUID HAZY (CLEAR); PLEURAL FL COLOR YELLOW (COLORLESS); SOURCE, BODY FLUID PLEURAL
[2022-01-14 18:19] LABS: AMYLASE, BODY FLUID 137 U/L (NOT ESTABLISHED); CHOLESTEROL, BODY FLUID 70 MG/DL (NOT ESTABLISHED); LDH, BODY FLUID 1248 U/L (NOT ESTABLISHED); SOURCE, BODY FLUID AMYLASE PLEURAL; SOURCE, BODY FLUID CHOL PLEURAL; SOURCE, BODY FLUID GLUCOSE PLEURAL; SOURCE, BODY FLUID LDH PLEURAL; SOURCE, BODY FLUID TRIG PLEURAL; TRIGLYCERIDE, BODY FLUID 34 MG/DL (NOT ESTABLISHED)
[2022-01-14] MEDS: LEVALBUTEROL 1.25 MG/0.5 ML CONCENTRATE NEB NEB SCH (19:42)
[2022-01-14] MEDS: VENLAFAXINE **XR** 75MG CAPSULE PO SCH (20:28)
[2022-01-14] MEDS: PRAVASTATIN 20 MG TAB PO SCH (20:28)
[2022-01-14] MEDS: DOCUSATE SODIUM 100MG CAPSULE PO SCH (20:28)
[2022-01-14] MEDS: NORCO, ANEXSIA 5/325MG TABLET (HYDROcodone/ACETAMINOPHEN) PO PRN (20:29)
[2022-01-15] VITALS (30 sets, daily range): BP systolic 86–125; BP diastolic 51–70; O2SAT 90–98
[2022-01-15] MEDS: LEVALBUTEROL 1.25 MG/0.5 ML CONCENTRATE NEB NEB SCH ×4 (02:31→20:06)
[2022-01-15] MEDS: PERCOCET 5MG/325MG TAB PO PRN ×2 (03:14→15:47)
[2022-01-15 06:06] LABS: HEMOGLOBIN 9.1 g/dl (12.0-15.5); MEAN CORPUSCULAR HEMOGLOBIN 28.4 pg (27.0-33.0); MEAN CORPUSCULAR HGB CONC 32.5 g/dl (32.0-36.5); MEAN CORPUSCULAR VOLUME 87.5 fl (80.0-96.0); PLATELET COUNT, AUTOMATED 439 10^3/uL (150-450); WHITE BLOOD COUNT 10.1 10^3/uL (4.0-10.0)
[2022-01-15] MEDS: KETOROLAC 30 MG/ML 1ML VIAL IV SCH ×2 (06:23→11:00)
[2022-01-15 06:29] LABS: ALBUMIN 1.6 GM/DL (3.2-5.2); BILIRUBIN,TOTAL 0.8 MG/DL (0.2-1.0); CALCIUM LEVEL 8.5 MG/DL (8.5-10.1); CREATININE FOR GFR 2.21 MG/DL (0.55-1.30); GLOMERULAR FILTRATION RATE 24.2 (>51); POTASSIUM SERUM 3.8 MEQ/L (3.5-5.1); TOTAL PROTEIN 6.6 GM/DL (6.4-8.2)
[2022-01-15] MEDS: NORCO, ANEXSIA 5/325MG TABLET (HYDROcodone/ACETAMINOPHEN) PO PRN ×3 (06:32→16:30)
[2022-01-15 06:39] LABS: LYMPHOCYTES 9 % (16-44); METAMYELOCYTES 3 % (0-0); MONOCYTES 8 % (0-5); MYELOCYTES 4 % (0-0); NEUTROPHILS 56 % (28-66)
[2022-01-15 06:40] LABS: ANISOCYTOSIS 1+; PLATELET CLUMPS SMALL AMT; PLATELET ESTIMATE INCREASED (NORMAL); POLYCHROMASIA 1+
[2022-01-15] MEDS: NS 1,000 ML IV SCH ×2 (06:51→16:52)
[2022-01-15] MEDS ORDERED: VANCOMYCIN HCL 1,000 MG, VIAL MATE ADAPTER 1 EACH in NS 250 ML IV SCH (07:45)
[2022-01-15] MEDS: MOM 30ML SUSPENSION UDC PO SCH (08:30)
[2022-01-15] MEDS: PANTOPRAZOLE 40MG TAB (PROTONIX) PO SCH (08:30)
[2022-01-15] MEDS: DOCUSATE SODIUM 100MG CAPSULE PO SCH ×2 (08:30→20:45)
[2022-01-15] MEDS: atenoloL 25 MG TAB PO SCH ×2 (08:31→20:45)
[2022-01-15] MEDS: PIPERACILLIN/TAZOBACTAM SOD 3.375 GM in D5W MINI-BAG PLUS 50 ML IV SCH ×3 (09:12→20:48)
[2022-01-15] MEDS ORDERED: flumazeniL 0.5 MG/5 ML VIAL As Ordered ONE (10:59)
[2022-01-15] MEDS ORDERED: MIDAZOLAM INJ 2MG/2ML VIAL (J2250 PER 1MG) As Ordered ONE ×2 (10:59→11:00)
[2022-01-15] MEDS ORDERED: LIDOCAINE 1% MDV 20ML VIAL As Ordered ONE (11:00)
[2022-01-15] MEDS ORDERED: VANCOMYCIN HCL 750 MG, VIAL MATE ADAPTER 1 EACH in NS 250 ML IV ONE (11:00)
[2022-01-15] MEDS ORDERED: VANCOMYCIN HCL 500 MG in D5W MINI-BAG PLUS 100 ML IV ONE (12:00)
[2022-01-15] MEDS ORDERED: ALTEPLASE 2MG/2ML VIAL XX STA (12:00)
[2022-01-15] MEDS ORDERED: PERCOCET 5MG/325MG TAB PO PRN (13:00)
[2022-01-15] MEDS ORDERED: MIDAZOLAM INJ 2MG/2ML VIAL (J2250 PER 1MG) IV STA ×2 (13:02)
[2022-01-15] MEDS ORDERED: LIDOCAINE 1% MDV 20ML VIAL SC ONE (13:05)
[2022-01-15] MEDS ORDERED: NS 1,000 ML IV ONE (16:55)
[2022-01-15] MEDS: VENLAFAXINE **XR** 75MG CAPSULE PO SCH (20:45)
[2022-01-15] MEDS: PRAVASTATIN 20 MG TAB PO SCH (20:45)
[2022-01-15] MEDS: HEPARIN SOD (PORCINE) 5000UNITS/ML 1ML VIAL/SYRINGE SQ SCH (20:46)
[2022-01-16] VITALS (18 sets, daily range): BP systolic 98–123; BP diastolic 54–88; O2SAT 93–97
[2022-01-16] MEDS: LEVALBUTEROL 1.25 MG/0.5 ML CONCENTRATE NEB NEB SCH ×4 (01:58→19:46)
[2022-01-16] MEDS: NS 1,000 ML IV SCH ×3 (02:51→23:24)
[2022-01-16] MEDS: PIPERACILLIN/TAZOBACTAM SOD 3.375 GM in D5W MINI-BAG PLUS 50 ML IV SCH ×4 (04:00→21:03)
[2022-01-16 06:05] LABS: HEMATOCRIT 31.7 % (36.0-47.0); HEMOGLOBIN 10.3 g/dl (12.0-15.5); MEAN CORPUSCULAR HEMOGLOBIN 28.3 pg (27.0-33.0); MEAN CORPUSCULAR HGB CONC 32.5 g/dl (32.0-36.5); MEAN CORPUSCULAR VOLUME 87.1 fl (80.0-96.0); PLATELET COUNT, AUTOMATED 467 10^3/uL (150-450); RED BLOOD COUNT 3.64 10^6/uL (4.00-5.40); WHITE BLOOD COUNT 14.6 10^3/uL (4.0-10.0)
[2022-01-16 06:30] LABS: ALBUMIN 1.6 GM/DL (3.2-5.2); CALCIUM LEVEL 8.4 MG/DL (8.5-10.1); CREATININE FOR GFR 1.53 MG/DL (0.55-1.30); POTASSIUM SERUM 3.4 MEQ/L (3.5-5.1); TOTAL PROTEIN 5.5 GM/DL (6.4-8.2)
[2022-01-16 06:36] LABS: LYMPHOCYTES 10 % (16-44); METAMYELOCYTES 1 % (0-0); MONOCYTES 4 % (0-5); MYELOCYTES 1 % (0-0); NEUTROPHILS 69 % (28-66); PLATELET ESTIMATE NORMAL (NORMAL)
[2022-01-16 08:45] LABS: VANCOMYCIN RANDOM 9.6 UG/ML
[2022-01-16] MEDS: NORCO, ANEXSIA 5/325MG TABLET (HYDROcodone/ACETAMINOPHEN) PO PRN (09:22)
[2022-01-16] MEDS: MOM 30ML SUSPENSION UDC PO SCH (09:22)
[2022-01-16] MEDS: DOCUSATE SODIUM 100MG CAPSULE PO SCH ×2 (09:22→21:02)
[2022-01-16] MEDS: atenoloL 25 MG TAB PO SCH ×2 (09:23→21:03)
[2022-01-16] MEDS: PANTOPRAZOLE 40MG TAB (PROTONIX) PO SCH (09:23)
[2022-01-16] MEDS: HEPARIN SOD (PORCINE) 5000UNITS/ML 1ML VIAL/SYRINGE SQ SCH ×2 (09:24→21:03)
[2022-01-16] MEDS ORDERED: VANCOMYCIN HCL 1,000 MG, VIAL MATE ADAPTER 1 EACH in NS 250 ML IV SCH (10:00)
[2022-01-16] MEDS ORDERED: NS 1,000 ML IV ONE (17:30)
[2022-01-16] MEDS: PRAVASTATIN 20 MG TAB PO SCH (21:02)
[2022-01-16] MEDS: VENLAFAXINE **XR** 75MG CAPSULE PO SCH (21:03)
[2022-01-16] MEDS: PERCOCET 5MG/325MG TAB PO PRN (23:23)
[2022-01-17] VITALS (67 sets, daily range): BP systolic 68–138; BP diastolic 47–77; O2SAT 95–97
[2022-01-17] MEDS: LEVALBUTEROL 1.25 MG/0.5 ML CONCENTRATE NEB NEB SCH ×4 (01:53→19:52)
[2022-01-17] MEDS: PIPERACILLIN/TAZOBACTAM SOD 3.375 GM in D5W MINI-BAG PLUS 50 ML IV SCH ×4 (03:00→21:26)
[2022-01-17 05:53] LABS: HEMOGLOBIN 9.4 g/dl (12.0-15.5); MEAN CORPUSCULAR HEMOGLOBIN 28.7 pg (27.0-33.0); MEAN CORPUSCULAR HGB CONC 32.4 g/dl (32.0-36.5); MEAN CORPUSCULAR VOLUME 88.7 fl (80.0-96.0); PLATELET COUNT, AUTOMATED 467 10^3/uL (150-450); RED BLOOD COUNT 3.27 10^6/uL (4.00-5.40); WHITE BLOOD COUNT 18.1 10^3/uL (4.0-10.0)
[2022-01-17] MEDS: PERCOCET 5MG/325MG TAB PO PRN ×3 (05:57→21:28)
[2022-01-17 06:27] LABS: ALBUMIN 1.4 GM/DL (3.2-5.2); BILIRUBIN,TOTAL 0.7 MG/DL (0.2-1.0); CALCIUM LEVEL 8.7 MG/DL (8.5-10.1); CREATININE FOR GFR 1.31 MG/DL (0.55-1.30); GLOMERULAR FILTRATION RATE 44.2 (>51); POTASSIUM SERUM 3.3 MEQ/L (3.5-5.1); TOTAL PROTEIN 6.2 GM/DL (6.4-8.2)
[2022-01-17 06:55] LABS: ATYPICAL LYMPH 1 % (0-5); EOSINOPHILS 1 % (0-3); LYMPHOCYTES 13 % (16-44); MONOCYTES 9 % (0-5); NEUTROPHILS 76 % (28-66); PLATELET ESTIMATE INCREASED (NORMAL)
[2022-01-17 06:56] LABS: ANISOCYTOSIS 2+
[2022-01-17] MEDS: MOM 30ML SUSPENSION UDC PO SCH (09:00)
[2022-01-17] MEDS: HEPARIN SOD (PORCINE) 5000UNITS/ML 1ML VIAL/SYRINGE SQ SCH ×2 (09:00→21:26)
[2022-01-17] MEDS: DOCUSATE SODIUM 100MG CAPSULE PO SCH ×2 (09:19→21:00)
[2022-01-17] MEDS: PANTOPRAZOLE 40MG TAB (PROTONIX) PO SCH (09:19)
[2022-01-17] MEDS: atenoloL 25 MG TAB PO SCH ×2 (09:22→21:00)
[2022-01-17] MEDS: NS 1,000 ML IV SCH (10:21)
[2022-01-17] MEDS ORDERED: POTASSIUM CHLORIDE 10MEQ SR TABLET PO ONE (10:50)
[2022-01-17] MEDS ORDERED: MIDAZOLAM INJ 2MG/2ML VIAL (J2250 PER 1MG) As Ordered ONE ×2 (13:29→16:33)
[2022-01-17] MEDS ORDERED: LIDOCAINE 2% 100MG/5ML SDV (FOR ANES.) As Ordered ONE (13:30)
[2022-01-17] MEDS ORDERED: ePHEDrine SULFATE 25 MG/5 ML(5MG/ML) SYRINGE As Ordered ONE (13:30)
[2022-01-17] MEDS ORDERED: propofoL 200 MG/20 ML VIAL As Ordered ONE ×2 (13:30→13:35)
[2022-01-17] MEDS ORDERED: PHENYLephrine 500MCG 5ML (100MCG/ML) SYRINGE As Ordered ONE (13:30)
[2022-01-17] MEDS ORDERED: ACETAMINOPHEN 1000MG 100ML IV BTL (OFIRMEV) (J0131 PER 10MG) As Ordered ONE (13:30)
[2022-01-17] MEDS ORDERED: SUGAMMADEX SODIUM 500 MG/5 ML VIAL (BRIDION) As Ordered ONE (13:30)
[2022-01-17] MEDS ORDERED: dexameTHASONE 4 MG/ML 1ML VIAL (J1100 PER 1MG) As Ordered ONE (13:30)
[2022-01-17] MEDS ORDERED: ROCURONIUM BROMIDE 50 MG/5 ML VIAL As Ordered ONE (13:30)
[2022-01-17] MEDS ORDERED: ONDANSETRON 4MG/2ML VIAL As Ordered ONE (13:30)
[2022-01-17] MEDS ORDERED: fentaNYL 100 MCG/2 ML INJECTION As Ordered ONE (13:30)
[2022-01-17] MEDS ORDERED: EPINEPHrine 1MG/10ML SYRINGE 1.5IN As Ordered ONE (13:36)
[2022-01-17] MEDS ORDERED: CETACAINE SPRAY 5GM As Ordered ONE (13:36)
[2022-01-17] MEDS ORDERED: THROMBIN SOLN 5,000 UNITS VIAL As Ordered ONE (13:36)
[2022-01-17] MEDS ORDERED: LIDOCAINE 1% SDV 30ML VIAL As Ordered ONE (13:36)
[2022-01-17] MEDS ORDERED: LIDOCAINE VISCOUS 2% SOLN 15ML UDC As Ordered ONE (13:37)
[2022-01-17] MEDS ORDERED: VASOPRESSIN INJ 20 UNITS/ML VIAL As Ordered ONE (14:21)
[2022-01-17] MEDS ORDERED: NALOXONE INJ 0.4MG/1ML VIAL (J2310 PER 1MG) As Ordered ONE (15:01)
[2022-01-17] MEDS ORDERED: flumazeniL 0.5 MG/5 ML VIAL As Ordered ONE (15:06)
[2022-01-17] MEDS ORDERED: PROPOFOL 1,000 MG/100 ML VIAL As Ordered ONE (15:33)
[2022-01-17] MEDS ORDERED: METOCLOPRAMIDE INJ 10MG/2ML VIAL (J2765 PER 1) IV PRN (15:40)
[2022-01-17] MEDS ORDERED: ONDANSETRON 4MG/2ML VIAL IV PRN (15:40)
[2022-01-17] MEDS ORDERED: LR 1,000 ML IV SCH (15:40)
[2022-01-17] MEDS ORDERED: PERCOCET 5MG/325MG TAB PO PRN (15:40)
[2022-01-17] MEDS ORDERED: fentaNYL 100 MCG/2 ML INJECTION IV PRN (15:40)
[2022-01-17] MEDS ORDERED: propofoL 1,000 MG in IV 1 EA IV SCH (15:45)
[2022-01-17] MEDS ORDERED: NOREPINEPHRINE 4 MG/4 ML AMP As Ordered ONE (16:34)
[2022-01-17] MEDS ORDERED: MIDAZOLAM INJ 2MG/2ML VIAL (J2250 PER 1MG) IV STA (16:36)
[2022-01-17] MEDS: propofoL 1,000 MG in IV 1 EA IV SCH ×3 (17:00→22:20)
[2022-01-17] MEDS ORDERED: LR 1,000 ML IV ONE ×2 (17:00→17:10)
[2022-01-17] MEDS ORDERED: NOREPINEPHRINE BITARTRATE 16 MG in D5W 484 ML IV SCH (17:00)
[2022-01-17 17:33] LABS: VENOUS BASE EXCESS -7.8 (-2.0-2.0); VENOUS HCO3 19.3 MEQ/L (23.0-27.0); VENOUS O2 SATURATION 91.3 % (60.0-80.0); VENOUS PARTIAL PRESSURE CO2 46.5 mmHg (38.0-50.0); VENOUS PARTIAL PRESSURE O2 73.1 mmHg (30.0-50.0); VENOUS PH 7.236 UNITS (7.330-7.430); VENOUS TOTAL CO2 20.7 MEQ/L (24.0-28.0)
[2022-01-17 17:42] LABS: HEMATOCRIT 27.4 % (36.0-47.0); HEMOGLOBIN 8.7 g/dl (12.0-15.5); MEAN CORPUSCULAR HEMOGLOBIN 28.6 pg (27.0-33.0); MEAN CORPUSCULAR HGB CONC 31.8 g/dl (32.0-36.5); MEAN CORPUSCULAR VOLUME 90.1 fl (80.0-96.0); PLATELET COUNT, AUTOMATED 435 10^3/uL (150-450); RED BLOOD COUNT 3.04 10^6/uL (4.00-5.40); WHITE BLOOD COUNT 22.4 10^3/uL (4.0-10.0)
[2022-01-17 17:51] LABS: ALBUMIN 1.3 GM/DL (3.2-5.2); BILIRUBIN,TOTAL 0.7 MG/DL (0.2-1.0); CALCIUM LEVEL 8.5 MG/DL (8.5-10.1); CREATININE FOR GFR 1.14 MG/DL (0.55-1.30); GLOMERULAR FILTRATION RATE 51.9 (>51); MAGNESIUM LEVEL 2.1 MG/DL (1.8-2.4); PHOSPHORUS LEVEL 4.5 MG/DL (2.5-4.9); POTASSIUM SERUM 3.8 MEQ/L (3.5-5.1); TOTAL PROTEIN 5.5 GM/DL (6.4-8.2)
[2022-01-17 17:56] LABS: INR 1.26; PROTHROMBIN TIME 16.2 SECONDS (12.7-14.5)
[2022-01-17 17:57] LABS: PARTIAL THROMBOPLASTIN TIME 41.4 SECONDS (25.9-37.0)
[2022-01-17 18:14] LABS: ANISOCYTOSIS 2+; LYMPHOCYTES 5 % (16-44); METAMYELOCYTES 6 % (0-0); MONOCYTES 4 % (0-5); MYELOCYTES 2 % (0-0); NEUTROPHILS 79 % (28-66); PLATELET ESTIMATE INCREASED (NORMAL)
[2022-01-17] MEDS: MIDAZOLAM INJ 2MG/2ML VIAL (J2250 PER 1MG) IV PRN (19:54)
[2022-01-17] MEDS: VENLAFAXINE **XR** 75MG CAPSULE PO SCH (21:00)
[2022-01-17] MEDS: PRAVASTATIN 20 MG TAB PO SCH (21:26)
[2022-01-17] MEDS ORDERED: VANCOMYCIN HCL 1,000 MG, VIAL MATE ADAPTER 1 EACH in NS 250 ML IV SCH (23:00)
[2022-01-18] VITALS (80 sets, daily range): BP systolic 64–142; BP diastolic 40–78
[2022-01-18] MEDS: propofoL 1,000 MG in IV 1 EA IV SCH ×7 (01:32→20:13)
[2022-01-18] MEDS: LEVALBUTEROL 1.25 MG/0.5 ML CONCENTRATE NEB NEB SCH ×4 (02:00→19:56)
[2022-01-18] MEDS: PIPERACILLIN/TAZOBACTAM SOD 3.375 GM in D5W MINI-BAG PLUS 50 ML IV SCH ×4 (04:06→20:11)
[2022-01-18] MEDS: NS 1,000 ML IV SCH (04:06)
[2022-01-18] MEDS: MIDAZOLAM INJ 2MG/2ML VIAL (J2250 PER 1MG) IV PRN ×3 (04:10→20:14)
[2022-01-18 05:45] LABS: HEMATOCRIT 28.7 % (36.0-47.0); HEMOGLOBIN 9.3 g/dl (12.0-15.5); MEAN CORPUSCULAR HEMOGLOBIN 28.7 pg (27.0-33.0); MEAN CORPUSCULAR HGB CONC 32.4 g/dl (32.0-36.5); MEAN CORPUSCULAR VOLUME 88.6 fl (80.0-96.0); PLATELET COUNT, AUTOMATED 484 10^3/uL (150-450); RED BLOOD COUNT 3.24 10^6/uL (4.00-5.40); WHITE BLOOD COUNT 24.6 10^3/uL (4.0-10.0)
[2022-01-18 06:15] LABS: BLOOD UREA NITROGEN 41 MG/DL (7-18); CALCIUM LEVEL 8.1 MG/DL (8.5-10.1); CARBON DIOXIDE LEVEL 23 MEQ/L (21-32); CHLORIDE LEVEL 114 MEQ/L (98-107); CREATININE FOR GFR 0.93 MG/DL (0.55-1.30); GLOMERULAR FILTRATION RATE > 60.0 (>51); GLUCOSE, FASTING 106 MG/DL (70-100); POTASSIUM SERUM 4.1 MEQ/L (3.5-5.1); SODIUM LEVEL 144 MEQ/L (136-145)
[2022-01-18 06:49] LABS: ANISOCYTOSIS 2+; LYMPHOCYTES 10 % (16-44); METAMYELOCYTES 6 % (0-0); MONOCYTES 10 % (0-5); MYELOCYTES 3 % (0-0); NEUTROPHILS 66 % (28-66); PLATELET ESTIMATE INCREASED (NORMAL)
[2022-01-18] MEDS: NOREPINEPHRINE BITARTRATE 16 MG in D5W 484 ML IV SCH ×3 (07:54→08:13)
[2022-01-18] MEDS: SODIUM CHLORIDE HYPERTONIC 3% 15ML NEB SOL INH SCH ×3 (08:00→14:49)
[2022-01-18] MEDS ORDERED: DORNASE INHALATION SOLN 1 MG/ML 2.5 ML AMP INH SCH (08:00)
[2022-01-18] MEDS ORDERED: ACETYLCYSTEINE 20% 4 ML VIAL (200MG/ML) INH SCH (08:00)
[2022-01-18] MEDS ORDERED: IPRATROPIUM 0.02% SOLN 0.5MG 2.5ML NEB INH PRN (08:40)
[2022-01-18] MEDS: atenoloL 25 MG TAB PO SCH ×2 (09:00→20:15)
[2022-01-18] MEDS: MOM 30ML SUSPENSION UDC PO SCH (09:00)
[2022-01-18] MEDS ORDERED: PANTOPRAZOLE SODIUM 40 MG in D5W 50 ML IV SCH (09:00)
[2022-01-18] MEDS: DOCUSATE SODIUM 100MG CAPSULE PO SCH ×2 (09:00→20:14)
[2022-01-18] MEDS: dexmedeTOMidine 200 MCG in IV 1 EA IV SCH ×7 (09:58→22:17)
[2022-01-18] MEDS: CHLORHEXIDINE GLUCONATE 0.12 % 15ML UDC (PERIDEX ORAL RINSE) MT SCH ×2 (10:16→20:13)
[2022-01-18] MEDS: HEPARIN SOD (PORCINE) 5000UNITS/ML 1ML VIAL/SYRINGE SQ SCH ×2 (10:17→20:13)
[2022-01-18] MEDS: PANTOPRAZOLE 40MG VIAL (C9113 PER 1) IV SCH (10:18)
[2022-01-18 14:26] LABS: ALBUMIN 1.5 GM/DL (3.2-5.2); ALT/SGPT 29 U/L (12-78); BILIRUBIN,DIRECT 0.4 MG/DL (0.0-0.2); BILIRUBIN,TOTAL 0.6 MG/DL (0.2-1.0); TOTAL PROTEIN 5.1 GM/DL (6.4-8.2)
[2022-01-18] MEDS: PRAVASTATIN 20 MG TAB PO SCH (20:13)
[2022-01-18] MEDS: VENLAFAXINE **XR** 75MG CAPSULE PO SCH (20:14)
[2022-01-18] MEDS: VANCOMYCIN HCL 1,000 MG, VIAL MATE ADAPTER 1 EACH in NS 250 ML IV SCH (23:31)
[2022-01-19] VITALS (94 sets, daily range): BP systolic 74–146; BP diastolic 50–74
[2022-01-19] MEDS: propofoL 1,000 MG in IV 1 EA IV SCH ×6 (00:26→21:05)
[2022-01-19] MEDS: dexmedeTOMidine 200 MCG in IV 1 EA IV SCH ×9 (00:55→22:30)
[2022-01-19] MEDS: PIPERACILLIN/TAZOBACTAM SOD 3.375 GM in D5W MINI-BAG PLUS 50 ML IV SCH ×4 (02:04→20:08)
[2022-01-19] MEDS: MIDAZOLAM INJ 2MG/2ML VIAL (J2250 PER 1MG) IV PRN ×2 (02:04→21:03)
[2022-01-19] MEDS: LEVALBUTEROL 1.25 MG/0.5 ML CONCENTRATE NEB NEB SCH ×4 (02:18→19:37)
[2022-01-19 04:55] LABS: HEMATOCRIT 27.8 % (36.0-47.0); HEMOGLOBIN 8.9 g/dl (12.0-15.5); MEAN CORPUSCULAR HEMOGLOBIN 28.9 pg (27.0-33.0); MEAN CORPUSCULAR VOLUME 90.3 fl (80.0-96.0); PLATELET COUNT, AUTOMATED 428 10^3/uL (150-450); RED BLOOD COUNT 3.08 10^6/uL (4.00-5.40); WHITE BLOOD COUNT 24.4 10^3/uL (4.0-10.0)
[2022-01-19 05:24] LABS: ATYPICAL LYMPH 2 % (0-5); BLOOD UREA NITROGEN 31 MG/DL (7-18); CARBON DIOXIDE LEVEL 22 MEQ/L (21-32); CHLORIDE LEVEL 116 MEQ/L (98-107); CREATININE FOR GFR 0.86 MG/DL (0.55-1.30); GLOMERULAR FILTRATION RATE > 60.0 (>51); GLUCOSE, FASTING 127 MG/DL (70-100); LYMPHOCYTES 23 % (16-44); MONOCYTES 6 % (0-5); MYELOCYTES 4 % (0-0); NEUTROPHILS 65 % (28-66); PLATELET ESTIMATE NORMAL (NORMAL); POTASSIUM SERUM 3.5 MEQ/L (3.5-5.1); SODIUM LEVEL 147 MEQ/L (136-145)
[2022-01-19 05:25] LABS: ANISOCYTOSIS 2+; POIKILOCYTOSIS 1+; POLYCHROMASIA 1+
[2022-01-19] MEDS ORDERED: KCL 20MEQ IN 100ML SWI (KRUN) 20 MEQ in IV 1 EA IV SCH ×4 (06:45→07:45)
[2022-01-19] MEDS: DOCUSATE SODIUM 100MG CAPSULE PO SCH ×2 (09:00→20:08)
[2022-01-19] MEDS: atenoloL 25 MG TAB PO SCH ×2 (09:00→20:08)
[2022-01-19] MEDS: CHLORHEXIDINE GLUCONATE 0.12 % 15ML UDC (PERIDEX ORAL RINSE) MT SCH ×2 (09:54→20:07)
[2022-01-19] MEDS: HEPARIN SOD (PORCINE) 5000UNITS/ML 1ML VIAL/SYRINGE SQ SCH ×2 (09:54→20:07)
[2022-01-19] MEDS: MOM 30ML SUSPENSION UDC PO SCH (09:54)
[2022-01-19] MEDS: PANTOPRAZOLE 40MG VIAL (C9113 PER 1) IV SCH (09:56)
[2022-01-19] MEDS ORDERED: fentaNYL CITRATE 1,000 MCG in NS 80 ML IV SCH (11:00)
[2022-01-19] MEDS: SENNA 8.6 MG TAB (SENOKOT) PO SCH (11:44)
[2022-01-19 12:17] LABS: THYROID STIMULATING HORMONE 33.3 uIU/ML (0.358-3.740)
[2022-01-19 18:24] LABS: FREE T4 0.39 NG/DL (0.76-1.46)
[2022-01-19] MEDS: PRAVASTATIN 20 MG TAB PO SCH (20:07)
[2022-01-19] MEDS: VENLAFAXINE **XR** 75MG CAPSULE PO SCH (20:08)
[2022-01-19] MEDS: VANCOMYCIN HCL 1,000 MG, VIAL MATE ADAPTER 1 EACH in NS 250 ML IV SCH (22:01)
[2022-01-20] VITALS (92 sets, daily range): BP systolic 77–158; BP diastolic 51–96
[2022-01-20] MEDS: LEVALBUTEROL 1.25 MG/0.5 ML CONCENTRATE NEB NEB SCH ×4 (00:42→20:27)
[2022-01-20] MEDS: PIPERACILLIN/TAZOBACTAM SOD 3.375 GM in D5W MINI-BAG PLUS 50 ML IV SCH ×2 (02:21→09:32)
[2022-01-20] MEDS: propofoL 1,000 MG in IV 1 EA IV SCH ×5 (02:22→21:41)
[2022-01-20] MEDS: dexmedeTOMidine 200 MCG in IV 1 EA IV SCH ×9 (02:28→23:24)
[2022-01-20 04:54] LABS: HEMATOCRIT 25.7 % (36.0-47.0); HEMOGLOBIN 8.1 g/dl (12.0-15.5); MEAN CORPUSCULAR HGB CONC 31.5 g/dl (32.0-36.5); MEAN CORPUSCULAR VOLUME 92.1 fl (80.0-96.0); PLATELET COUNT, AUTOMATED 390 10^3/uL (150-450); RED BLOOD COUNT 2.79 10^6/uL (4.00-5.40); WHITE BLOOD COUNT 26.8 10^3/uL (4.0-10.0)
[2022-01-20 05:04] LABS: BLOOD UREA NITROGEN 20 MG/DL (7-18); CALCIUM LEVEL 7.6 MG/DL (8.5-10.1); CARBON DIOXIDE LEVEL 25 MEQ/L (21-32); CHLORIDE LEVEL 115 MEQ/L (98-107); CREATININE FOR GFR 0.63 MG/DL (0.55-1.30); GLOMERULAR FILTRATION RATE > 60.0 (>51); GLUCOSE, FASTING 169 MG/DL (70-100); POTASSIUM SERUM 3.3 MEQ/L (3.5-5.1); SODIUM LEVEL 147 MEQ/L (136-145)
[2022-01-20 05:15] LABS: LYMPHOCYTES 13 % (16-44); METAMYELOCYTES 1 % (0-0); MONOCYTES 3 % (0-5); MYELOCYTES 3 % (0-0); NEUTROPHILS 75 % (28-66)
[2022-01-20 05:16] LABS: PLATELET ESTIMATE NORMAL (NORMAL)
[2022-01-20 05:17] LABS: ANISOCYTOSIS 2+
[2022-01-20 05:18] LABS: POIKILOCYTOSIS 1+
[2022-01-20] MEDS: KCL 20MEQ IN 100ML SWI (KRUN) 20 MEQ in IV 1 EA IV SCH ×4 (05:44→06:48)
[2022-01-20] MEDS: NOREPINEPHRINE BITARTRATE 16 MG in D5W 484 ML IV SCH ×2 (06:51→17:25)
[2022-01-20] MEDS: PANTOPRAZOLE 40MG VIAL (C9113 PER 1) IV SCH (09:27)
[2022-01-20] MEDS: SENNA 8.6 MG TAB (SENOKOT) PO SCH (09:30)
[2022-01-20] MEDS: HEPARIN SOD (PORCINE) 5000UNITS/ML 1ML VIAL/SYRINGE SQ SCH ×2 (09:30→20:36)
[2022-01-20] MEDS: MOM 30ML SUSPENSION UDC PO SCH (09:31)
[2022-01-20] MEDS: CHLORHEXIDINE GLUCONATE 0.12 % 15ML UDC (PERIDEX ORAL RINSE) MT SCH ×2 (09:31→20:36)
[2022-01-20] MEDS: atenoloL 25 MG TAB PO SCH ×2 (09:32→20:35)
[2022-01-20] MEDS: LEVOTHYROXINE 100MCG (0.1MG) VIAL (POWDER FORM) IV SCH (09:34)
[2022-01-20] MEDS: VENLAFAXINE 37.5 MG TAB PO SCH ×2 (11:07→20:36)
[2022-01-20] MEDS ORDERED: cefTRIAXone SOD 1GM VIAL (J0696 PER 250MG) IM SCH (11:15)
[2022-01-20] MEDS: cefTRIAXone SOD 1 GM in D5W MINI-BAG PLUS 50 ML IV SCH (13:12)
[2022-01-20] MEDS: fentaNYL 100 MCG/2 ML INJECTION IV PRN (14:07)
[2022-01-20] MEDS: PRAVASTATIN 20 MG TAB PO SCH (20:36)
[2022-01-20] MEDS: VANCOMYCIN HCL 1,000 MG, VIAL MATE ADAPTER 1 EACH in NS 250 ML IV SCH (23:24)
[2022-01-21] VITALS (129 sets, daily range): BP systolic 77–199; BP diastolic 51–114
[2022-01-21] MEDS: dexmedeTOMidine 200 MCG in IV 1 EA IV SCH ×5 (01:30→11:00)
[2022-01-21] MEDS: LEVALBUTEROL 1.25 MG/0.5 ML CONCENTRATE NEB NEB SCH ×4 (01:42→20:01)
[2022-01-21] MEDS: propofoL 1,000 MG in IV 1 EA IV SCH ×5 (02:32→23:17)
[2022-01-21 05:50] LABS: HEMATOCRIT 25.5 % (36.0-47.0); MEAN CORPUSCULAR HEMOGLOBIN 29.1 pg (27.0-33.0); MEAN CORPUSCULAR HGB CONC 31.4 g/dl (32.0-36.5); MEAN CORPUSCULAR VOLUME 92.7 fl (80.0-96.0); PLATELET COUNT, AUTOMATED 410 10^3/uL (150-450); RED BLOOD COUNT 2.75 10^6/uL (4.00-5.40); WHITE BLOOD COUNT 29.9 10^3/uL (4.0-10.0)
[2022-01-21 06:21] LABS: BLOOD UREA NITROGEN 15 MG/DL (7-18); CALCIUM LEVEL 7.9 MG/DL (8.5-10.1); CARBON DIOXIDE LEVEL 25 MEQ/L (21-32); CHLORIDE LEVEL 115 MEQ/L (98-107); CREATININE FOR GFR 0.46 MG/DL (0.55-1.30); GLOMERULAR FILTRATION RATE > 60.0 (>51); GLUCOSE, FASTING 117 MG/DL (70-100); POTASSIUM SERUM 4.3 MEQ/L (3.5-5.1); SODIUM LEVEL 146 MEQ/L (136-145)
[2022-01-21] MEDS: atenoloL 25 MG TAB PO SCH ×2 (08:19→20:10)
[2022-01-21 08:28] LABS: ALBUMIN 1.4 GM/DL (3.2-5.2); ALT/SGPT 23 U/L (12-78); BILIRUBIN,DIRECT 0.3 MG/DL (0.0-0.2); BILIRUBIN,TOTAL 0.6 MG/DL (0.2-1.0); MAGNESIUM LEVEL 1.9 MG/DL (1.8-2.4); PHOSPHORUS LEVEL 4.3 MG/DL (2.5-4.9); TOTAL PROTEIN 5.2 GM/DL (6.4-8.2)
[2022-01-21] MEDS: SENNA 8.6 MG TAB (SENOKOT) PO SCH (08:52)
[2022-01-21] MEDS: VENLAFAXINE 37.5 MG TAB PO SCH ×2 (08:52→20:11)
[2022-01-21 08:56] LABS: VENOUS BASE EXCESS -1.5 (-2.0-2.0); VENOUS HCO3 23.5 MEQ/L (23.0-27.0); VENOUS PARTIAL PRESSURE CO2 40.6 mmHg (38.0-50.0); VENOUS PARTIAL PRESSURE O2 40.1 mmHg (30.0-50.0); VENOUS STANDARD HCO3 22.8 MEQ/L; VENOUS TOTAL CO2 24.7 MEQ/L (24.0-28.0)
[2022-01-21] MEDS: MOM 30ML SUSPENSION UDC PO SCH (08:56)
[2022-01-21] MEDS: CHLORHEXIDINE GLUCONATE 0.12 % 15ML UDC (PERIDEX ORAL RINSE) MT SCH ×2 (08:56→20:09)
[2022-01-21] MEDS: HEPARIN SOD (PORCINE) 5000UNITS/ML 1ML VIAL/SYRINGE SQ SCH ×2 (09:00→20:09)
[2022-01-21] MEDS: PANTOPRAZOLE 40MG VIAL (C9113 PER 1) IV SCH (09:03)
[2022-01-21] MEDS: LEVOTHYROXINE 100MCG (0.1MG) VIAL (POWDER FORM) IV SCH (09:11)
[2022-01-21] MEDS ORDERED: ALTEPLASE 2MG/2ML VIAL XX ONE (10:30)
[2022-01-21 11:52] LABS: LIPASE 178 U/L (73-393)
[2022-01-21] MEDS: cefTRIAXone SOD 1 GM in D5W MINI-BAG PLUS 50 ML IV SCH (12:14)
[2022-01-21] MEDS: VANCOMYCIN HCL 1,000 MG, VIAL MATE ADAPTER 1 EACH in NS 250 ML IV SCH (17:20)
[2022-01-21] MEDS: NOREPINEPHRINE BITARTRATE 16 MG in D5W 484 ML IV SCH (17:21)
[2022-01-21] MEDS: fentaNYL 100 MCG/2 ML INJECTION IV PRN (20:10)
[2022-01-21] MEDS: PRAVASTATIN 20 MG TAB PO SCH (20:11)
[2022-01-22] VITALS (49 sets, daily range): BP systolic 96–135; BP diastolic 62–94
[2022-01-22] MEDS: LEVALBUTEROL 1.25 MG/0.5 ML CONCENTRATE NEB NEB SCH ×4 (01:02→19:33)
[2022-01-22 05:17] LABS: HEMATOCRIT 29.1 % (36.0-47.0); MEAN CORPUSCULAR HEMOGLOBIN 29.1 pg (27.0-33.0); MEAN CORPUSCULAR HGB CONC 30.9 g/dl (32.0-36.5); MEAN CORPUSCULAR VOLUME 94.2 fl (80.0-96.0); RED BLOOD COUNT 3.09 10^6/uL (4.00-5.40)
[2022-01-22 05:20] LABS: WHITE BLOOD COUNT 33.4 10^3/uL (4.0-10.0)
[2022-01-22 05:22] LABS: PLATELET COUNT, AUTOMATED 517 10^3/uL (150-450)
[2022-01-22 05:39] LABS: BLOOD UREA NITROGEN 14 MG/DL (7-18); CALCIUM LEVEL 8.2 MG/DL (8.5-10.1); CARBON DIOXIDE LEVEL 23 MEQ/L (21-32); CHLORIDE LEVEL 113 MEQ/L (98-107); CREATININE FOR GFR 0.43 MG/DL (0.55-1.30); GLOMERULAR FILTRATION RATE > 60.0 (>51); GLUCOSE, FASTING 107 MG/DL (70-100); POTASSIUM SERUM 4.2 MEQ/L (3.5-5.1); SODIUM LEVEL 145 MEQ/L (136-145)
[2022-01-22] MEDS: NOREPINEPHRINE BITARTRATE 16 MG in D5W 484 ML IV SCH ×2 (07:00→17:00)
[2022-01-22] MEDS: CHLORHEXIDINE GLUCONATE 0.12 % 15ML UDC (PERIDEX ORAL RINSE) MT SCH ×2 (08:13→20:10)
[2022-01-22] MEDS: PANTOPRAZOLE 40MG VIAL (C9113 PER 1) IV SCH (08:13)
[2022-01-22] MEDS: HEPARIN SOD (PORCINE) 5000UNITS/ML 1ML VIAL/SYRINGE SQ SCH ×2 (08:15→20:10)
[2022-01-22] MEDS: VENLAFAXINE 37.5 MG TAB PO SCH ×2 (08:17→20:11)
[2022-01-22] MEDS: MOM 30ML SUSPENSION UDC PO SCH (08:17)
[2022-01-22] MEDS: atenoloL 25 MG TAB PO SCH ×2 (08:17→20:11)
[2022-01-22] MEDS: SENNA 8.6 MG TAB (SENOKOT) PO SCH (08:17)
[2022-01-22] MEDS: LEVOTHYROXINE 100MCG (0.1MG) VIAL (POWDER FORM) IV SCH (08:18)
[2022-01-22] MEDS: propofoL 1,000 MG in IV 1 EA IV SCH ×2 (09:48→20:42)
[2022-01-22 09:55] LABS: EOSINOPHILS 1 % (0-3); LYMPHOCYTES 4 % (16-44); METAMYELOCYTES 2 % (0-0); MONOCYTES 5 % (0-5); MYELOCYTES 2 % (0-0); NEUTROPHILS 83 % (28-66)
[2022-01-22 09:57] LABS: ANISOCYTOSIS 2+; POLYCHROMASIA 1+
[2022-01-22 09:59] LABS: PLATELET ESTIMATE INCREASED (NORMAL)
[2022-01-22 10:14] LABS: VENOUS BASE EXCESS -4.2 (-2.0-2.0); VENOUS HCO3 19.9 MEQ/L (23.0-27.0); VENOUS O2 SATURATION 84.5 % (60.0-80.0); VENOUS PARTIAL PRESSURE O2 54.9 mmHg (30.0-50.0); VENOUS PH 7.399 UNITS (7.330-7.430); VENOUS STANDARD HCO3 20.8 MEQ/L; VENOUS TOTAL CO2 20.9 MEQ/L (24.0-28.0)
[2022-01-22] MEDS: cefTRIAXone SOD 1 GM in D5W MINI-BAG PLUS 50 ML IV SCH (13:29)
[2022-01-22] MEDS: fentaNYL 100 MCG/2 ML INJECTION IV PRN (15:27)
[2022-01-22] MEDS: PRAVASTATIN 20 MG TAB PO SCH (20:11)
[2022-01-23] VITALS (44 sets, daily range): BP systolic 89–155; BP diastolic 54–92; O2SAT 95
[2022-01-23] MEDS: LEVALBUTEROL 1.25 MG/0.5 ML CONCENTRATE NEB NEB SCH ×2 (01:01→07:15)
[2022-01-23 05:18] LABS: BASO # 0.1 10^3/uL (0.0-0.2); BASO % 0.4 % (0.0-1.0); EOS % 0.1 % (0.0-3.0); HEMATOCRIT 28.6 % (36.0-47.0); HEMOGLOBIN 8.9 g/dl (12.0-15.5); LYMPH # 2.3 10^3/uL (1.5-5.0); LYMPH % 6.7 % (24.0-44.0); MEAN CORPUSCULAR HEMOGLOBIN 29.5 pg (27.0-33.0); MEAN CORPUSCULAR HGB CONC 31.1 g/dl (32.0-36.5); MEAN CORPUSCULAR VOLUME 94.7 fl (80.0-96.0); MONO # 1.4 10^3/uL (0.0-0.8); MONO % 4.3 % (2.0-8.0); NEUTROPHILS # 28.1 10^3/uL (1.5-8.5); NEUTROPHILS % 84.1 % (36.0-66.0); PLATELET COUNT, AUTOMATED 544 10^3/uL (150-450); RED BLOOD COUNT 3.02 10^6/uL (4.00-5.40)
[2022-01-23 05:23] LABS: WHITE BLOOD COUNT 33.4 10^3/uL (4.0-10.0)
[2022-01-23 05:39] LABS: BLOOD UREA NITROGEN 19 MG/DL (7-18); CALCIUM LEVEL 8.2 MG/DL (8.5-10.1); CARBON DIOXIDE LEVEL 24 MEQ/L (21-32); CHLORIDE LEVEL 114 MEQ/L (98-107); CREATININE FOR GFR 0.49 MG/DL (0.55-1.30); GLOMERULAR FILTRATION RATE > 60.0 (>51); GLUCOSE, FASTING 87 MG/DL (70-100); MAGNESIUM LEVEL 2.1 MG/DL (1.8-2.4); PHOSPHORUS LEVEL 4.2 MG/DL (2.5-4.9); POTASSIUM SERUM 4.2 MEQ/L (3.5-5.1); SODIUM LEVEL 147 MEQ/L (136-145)
[2022-01-23] MEDS: CHLORHEXIDINE GLUCONATE 0.12 % 15ML UDC (PERIDEX ORAL RINSE) MT SCH ×2 (08:19→20:24)
[2022-01-23] MEDS: MOM 30ML SUSPENSION UDC PO SCH (08:19)
[2022-01-23] MEDS: PANTOPRAZOLE 40MG VIAL (C9113 PER 1) IV SCH (08:19)
[2022-01-23] MEDS: VENLAFAXINE 37.5 MG TAB PO SCH ×2 (08:19→20:32)
[2022-01-23] MEDS: atenoloL 25 MG TAB PO SCH ×2 (08:19→21:00)
[2022-01-23] MEDS: LEVOTHYROXINE 100MCG (0.1MG) VIAL (POWDER FORM) IV SCH (08:20)
[2022-01-23] MEDS: HEPARIN SOD (PORCINE) 5000UNITS/ML 1ML VIAL/SYRINGE SQ SCH ×2 (08:20→20:24)
[2022-01-23] MEDS: SENNA 8.6 MG TAB (SENOKOT) PO SCH (08:20)
[2022-01-23] MEDS: cefTRIAXone SOD 1 GM in D5W MINI-BAG PLUS 50 ML IV SCH (13:03)
[2022-01-23] MEDS: ALBUTEROL SULFATE 2.5 MG/0.5 ML INH NEB SOLN NEB SCH ×2 (14:49→19:39)
[2022-01-23] MEDS: PRAVASTATIN 20 MG TAB PO SCH (20:32)
[2022-01-23] MEDS: propofoL 1,000 MG in IV 1 EA IV SCH (22:05)
[2022-01-23] MEDS: fentaNYL 100 MCG/2 ML INJECTION IV PRN (22:24)
[2022-01-24] VITALS (21 sets, daily range): BP systolic 85–113; BP diastolic 53–69; O2SAT 97
[2022-01-24] MEDS: ALBUTEROL SULFATE 2.5 MG/0.5 ML INH NEB SOLN NEB SCH ×2 (01:29→09:07)
[2022-01-24] MEDS: propofoL 1,000 MG in IV 1 EA IV SCH (06:21)
[2022-01-24] MEDS: VENLAFAXINE 37.5 MG TAB PO SCH (08:42)
[2022-01-24] MEDS: MOM 30ML SUSPENSION UDC PO SCH (08:42)
[2022-01-24] MEDS: CHLORHEXIDINE GLUCONATE 0.12 % 15ML UDC (PERIDEX ORAL RINSE) MT SCH (08:42)
[2022-01-24] MEDS: HEPARIN SOD (PORCINE) 5000UNITS/ML 1ML VIAL/SYRINGE SQ SCH (08:44)
[2022-01-24] MEDS: SENNA 8.6 MG TAB (SENOKOT) PO SCH (08:44)
[2022-01-24] MEDS: PANTOPRAZOLE 40MG VIAL (C9113 PER 1) IV SCH (08:44)
[2022-01-24] MEDS: atenoloL 25 MG TAB PO SCH (08:44)
[2022-01-24] MEDS: LEVOTHYROXINE 100MCG (0.1MG) VIAL (POWDER FORM) IV SCH (08:44)
[2022-01-24] MEDS ORDERED: LORazepam 2 MG/ML VIAL As Ordered ONE ×2 (10:41→13:01)
[2022-01-24] MEDS: LORazepam 2 MG/ML VIAL IV PRN ×2 (10:55→13:06)
[2022-01-24] MEDS: MORPHINE 4 MG/ML 1ML VIAL/SYRINGE (J2270) IV PRN ×4 (10:57→14:02)
== END 2022-01-24 14:14 | disposition expired | DRG 720 ==
LOC: M ED 15:35 → M ED INP 20:25 → ENRESERV 01-14 01:18 → M PCU 01-14 02:19 → M ICU 01-17 16:16
PROVIDERS: ADMIT Internal Medicine; ATTEND Internal Medicine
PROC: 3E03317 Introduction of Other Thrombolytic into Peripheral Vein, Percutaneous Approach (ICD-10-PCS; 2022-01-15)
PROC: 0W9930Z Drainage of Right Pleural Cavity with Drainage Device, Percutaneous Approach (ICD-10-PCS; 2022-01-15)
PROC: 0BBK8ZX Excision of Right Lung, Via Natural or Artificial Opening Endoscopic, Diagnostic (ICD-10-PCS; 2022-01-17)
PROC: 02HV33Z Insertion of Infusion Device into Superior Vena Cava, Percutaneous Approach (ICD-10-PCS; 2022-01-17)
PROC: 5A1955Z Respiratory Ventilation, Greater than 96 Consecutive Hours (ICD-10-PCS; principal; 2022-01-17 12:30)
PROC: 3E03317 Introduction of Other Thrombolytic into Peripheral Vein, Percutaneous Approach (ICD-10-PCS; 2022-01-21)
DX: A41.9 Sepsis, unspecified organism (principal); U07.1 COVID-19; J96.21 Acute and chronic respiratory failure with hypoxia; J86.9 Pyothorax without fistula; R65.21 Severe sepsis with septic shock; G93.41 Metabolic encephalopathy; J13 Pneumonia due to Streptococcus pneumoniae; N17.9 Acute kidney failure, unspecified; C78.7 Secondary malignant neoplasm of liver and intrahepatic bile duct; J91.0 Malignant pleural effusion; J44.9 Chronic obstructive pulmonary disease, unspecified; C77.0 Secondary and unspecified malignant neoplasm of lymph nodes of head, face and neck; C79.51 Secondary malignant neoplasm of bone; E87.0 Hyperosmolality and hypernatremia; Z99.81 Dependence on supplemental oxygen; E87.1 Hypo-osmolality and hyponatremia; J98.09 Other diseases of bronchus, not elsewhere classified; C34.90 Malignant neoplasm of unspecified part of unspecified bronchus or lung; D64.9 Anemia, unspecified; R62.7 Adult failure to thrive; Z66 Do not resuscitate; Z51.5 Encounter for palliative care; Z88.8 Allergy status to other drugs, medicaments and biological substances; Z79.899 Other long term (current) drug therapy; F17.210 Nicotine dependence, cigarettes, uncomplicated; I10 Essential (primary) hypertension; E86.0 Dehydration; E03.9 Hypothyroidism, unspecified; F41.9 Anxiety disorder, unspecified